=== PATIENT | female | born 2005 | race Caucasian/White ===

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

== ENCOUNTER 2023-05-14 18:09 | Emergency (ER) | payer BC, MEDICAID, SELFPAY ==
[2023-05-14 18:11] VITALS: BP 113/61; PULSE 100; RESP 18; TEMP 36.5; O2SAT 100; BMI 20.5
[2023-05-14 19:04] LABS: Add Urine Microscopic? YES; Bilirubin Urine Neg (Negative); Blood Urine Neg (Negative); Glucose Urine UA Norm (Normal); Ketones Urine Negative (Negative); Leukocyte Esterase Urine Trace (Negative); Nitrate Urine Negative (Negative); Protein Urine Neg (Negative); Specific Gravity, Urine 1.015 (1.005-1.030); Urine Appearance Clear (CLEAR); Urine Color Yellow (Yellow); Urobilinogen Urine Norm (Negative); pH Urine 6 (5-7)
[2023-05-14 19:07] LABS: Bacteria Urine TRACE /hpf; Mucus Urine TRACE /hpf; RBC Urine 0-4 /hpf (0-2)
[2023-05-14 19:08] LABS: Add Urine Culture? No
--- NOTE | 2023-05-14 20:25 | CTR_ITS ---
PROCEDURE INFORMATION: Exam: CT Abdomen And Pelvis With Contrast Exam date and time: 05/14/2023 9:15 PM Age: 17 years old Clinical indication: Abdominal pain; Localized; Right; Prior surgery; Surgery date: 6+ months; Surgery type: Bharti; Additional info: Rlq abd pain TECHNIQUE: Imaging protocol: Computed tomography of the abdomen and pelvis with contrast. Radiation optimization: All CT scans at this facility use at least one of these dose optimization techniques: automated exposure control; mA and/or kV adjustment per patient size (includes targeted exams where dose is matched to clinical indication); or iterative reconstruction. Contrast material: OMNI 350; Contrast volume: 100 ml; Contrast route: INTRAVENOUS (IV); REPORTING DATA: Count of CT and Cardiac NM exams in prior 12 months: This patient has received 0 known CTs and 0 known cardiac nuclear medicine studies in the 12 months prior to the current study. 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 Gallbladder and bile ducts: Cholecystectomy. No ductal dilation. Pancreas: Normal. No ductal dilation. Spleen: Normal. No splenomegaly. Adrenal glands: Normal. No mass. Kidneys and ureters: 3 mm nonobstructing stone noted in the left kidney. No hydronephrosis. Stomach and bowel: Unremarkable. No obstruction. No mucosal thickening. Appendix: No evidence of appendicitis. Intraperitoneal space: Unremarkable. No free air. No significant fluid collection. Vasculature: Unremarkable. No abdominal aortic aneurysm. Lymph nodes: Unremarkable. No enlarged lymph nodes. Urinary bladder: Unremarkable as visualized. Reproductive: Unremarkable as visualized. Bones/joints: No acute fracture. Soft tissues: Unremarkable. CT/CT abdomen pelvis w con* [id number] IMPRESSION: 1. No acute findings. 2. 3 mm nonobstructing stone noted in the left kidney.
[2023-05-14 20:26] LABS: Basophils # 0.1 10^3/uL (0.0-0.1); Basophils % 0.6 %; Eosinophils # 0.4 10^3/uL (0.0-0.8); Eosinophils % 4.5 %; Hematocrit 44.1 % (36-47); Lymphocytes # 2.9 10^3/uL (1.5-6.5); Lymphocytes % 35.8 %; Mean Corpuscular HGB Conc 32.4 g/dL (30-55); Mean Corpuscular Volume 86.5 fl (85-98); Mean Platelet Volume 10.3 fL (7.4-10.4); Monocytes # 0.6 10^3/uL (0.2-0.9); Monocytes % 6.8 %; Neutrophils # 4.28 10^3/uL (1.8-8.0); Neutrophils % 52.1 %; Nucleated Red Blood Cells % 0 %; Platelet Count 370 10^3/cmm (157-399); Red Cell Distribution Width 13.3 % (12.1-15.1); White Blood Count 8.22 10^3/uL (4.5-13.0)
--- NOTE | 2023-05-14 20:27 | ED_ITS ---
HPI - Abdominal Pain General: Chief Complaint: Abdominal Pain Stated Complaint: right abdomen pain,light headed Time Seen by Provider: 05/14/23 20:13 History of Present Illness: 17-year-old female presents emergency department complaints of right lower quadrant abdominal pain. She states that her pain started around her bellybutton yesterday and is continued to worsen. She states it did improve last night for approximately 3 to 4 hours and then started having pain again. She states today the pain is a 9 out of 10 to the right lower quadrant and hurts with any movement or coughing or sneezing. She states she does have associated nausea without vomiting. She states that touching the area makes the pain worse she has had a previous cholecystectomy and approximately 14 months ago she gave to a well healthy male . Associated Symptoms: Reports nausea Related Data: Date of Last Menstrual Period: 05/06/23 Review of Systems General: Reports: 10 or more systems reviewed and unremarkable except in HPI and below GI: Reports: abdominal pain and nausea PFS ED PFSH: Medical History Anxiety COVID Mastitis No pertinent past medical history neghx: htn,dm,thyroid,dvt/pe PCP: Dr. Morillo Normal Surgical History Hx laparoscopic cholecystectomy (~2020) Hx of tonsillectomy (~2006) Family History Family/Other Breast cancer Maternal great grandmother--dx age unknown Colon cancer Paternal Great Uncle--dx age 60's Mother Heart disease Grandmother Heart disease Maternal Grandfather Hypertension Paternal Denies family history of Ovarian cancer Diabetes Hypercholesteremia Uterine cancer Thyroid disease Stroke Social History Smoking and tobacco status: never smoked Alcohol intake: never Substance/Drug Use: never Female Reproductive History: Date of last menstrual period: 05/06/23 Physical Exam Const: COMMON NORMALS: patient oriented x3 GENERAL APPEARANCE: cooperative and ill appearing HENMT: COMMON NORMALS: normocephalic, atraumatic, Normal external nose present and moist oral mucous membranes HEAD & SCALP: normocephalic and atraumatic NOSE: Normal external nose present Eye: COMMON NORMALS: Equal, round and reactive pupils present and EOMs intact bilaterally PUPIL: Yes Equal, round and reactive pupils present Neck/C-Spine: COMMON NORMALS: full ROM, no lymphadenopathy and supple Chest: COMMONS NORMALS: normal inspection of the chest and normal palpation of entire chest wall Resp: COMMON NORMALS: normal respiratory effort and clear to auscultation bilaterally AUSCULTATION: clear to auscultation bilaterally Cardio: COMMON NORMALS: regular rate, regular rhythm, S1 normal heart sound present, S2 normal heart sound present and Peripheral pulses 2+ throughout RATE: regular rate RHYTHM: regular rhythm HEART SOUNDS: S1 normal heart sound present and S2 normal heart sound present PERIPHERAL PULSES: Peripheral pulses 2+ throughout GI: COMMON NORMALS: Soft to palpation INSPECTION: Yes normal to inspection and Yes other (Postop laparoscopic surgical incisions noted to the right upper quadrant mo) AUSCULTATION: Yes normoactive bowel sounds PALPATION: Yes Soft to palpation, Yes Tenderness to palpation present (GI) Details: RLQ and Yes Guarding due to palpation present (GI) in the RLQ Back/Pelvis: COMMON NORMALS: thoracic and lumbar spine normal to inspection, no thoracic nor lumbar tenderness and thoraco-lumbar ROM normal Extremity: COMMON NORMALS: normal to inspection, full ROM and capillary refill normal Neuro: COMMON NORMALS: patient oriented x3 and moves all extremities Psych: COMMON NORMALS: mental status grossly normal, Normal thought process present and cooperative THOUGHT PROCESS: Normal thought process present Skin: COMMON NORMALS: no rashes or lesions noted GENERAL SKIN EXAM: no rashes or lesions noted Course Vital Signs: Vital signs: Vital Signs Temperature 97.7 F 05/14/23 18:11 Pulse Rate 100 05/14/23 18:11 Respiratory Rate 18 05/14/23 18:11 Blood Pressure 113/61 05/14/23 18:11 Pulse Oximetry 100 05/14/23 18:11 Oxygen Delivery Me thod Room Air 05/14/23 18:11 MDM - Abdominal Pain Medical Decision Making Physical exam completed and documented, I will order laboratory evaluation as well as a CT scan of her abdomen pelvis with contrast she states she is allergic to shrimp but has not had any difficulties with CT scans with IV contrast in the past. Differential Diagnosis Likely abdominal pain, acute appendicitis and constipation Lab Data 05/14/23 20:06 05/14/23 20:06 Labs/Radiology: Radiology Impressions Abdomen/Pelvis CT 05/14/23 20:25 IMPRESSION: 1. No acute findings. 2. 3 mm nonobstructing stone noted in the left kidney. Laboratory Results WBC 8.22 10^3/uL (4.5-13.0) 05/14/23 20:06 RBC 5.10 10^6/uL (3.85-5.65) 05/14/23 20:06 Hgb 14.30 g/dL (12.4-14.8) 05/14/23 20:06 Hct 44.1 % (36-47) 05/14/23 20:06 MCV 86.5 fl (85-98) 05/14/23 20:06 MCH 28.0 pg (27-33) 05/14/23 20:06 MCHC 32.4 g/dL (30-55) 05/14/23 20:06 RDW 13.3 % (12.1-15.1) 05/14/23 20:06 Plt Count 370 10^3/cmm (157-399) 05/14/23 20:06 MPV 10.3 fL (7.4-10.4) 05/14/23 20:06 Neut % (Auto) 52.1 % 05/14/23 20:06 Lymph % (Auto) 35.8 % 05/14/23 20:06 [place] % (Auto) 6.8 % 05/14/23 20:06 Eos % (Auto) 4.5 % 05/14/23 20:06 Baso % (Auto) 0.6 % 05/14/23 20:06 Neut # (Auto) 4.28 10^3/uL (1.8-8.0) 05/14/23 20:06 Lymph # (Auto) 2.9 10^3/uL (1.5-6.5) 05/14/23 20:06 [place] # (Auto) 0.6 10^3/uL (0.2-0.9) 05/14/23 20:06 Eos # (Auto) 0.4 10^3/uL (0.0-0.8) 05/14/23 20:06 Baso # (Auto) 0.1 10^3/uL (0.0-0.1) 05/14/23 20:06 Nucleated RBC % (auto) 0 % 05/14/23 20:06 Nucleated RBCs # 0.0 /100WBC 05/14/23 20:06 PT 16.00 SECONDS (12.1-14.9) H 05/14/23 20:32 INR 1.24 (0.8-1.2) H 05/14/23 20:32 APTT 32.9 SECONDS (23.9-36.7) 05/14/23 20:32 Sodium 142 mmol/L (136-145) 05/14/23 20:06 Potassium 3.6 mmol/L (3.5-5.1) 05/14/23 20:06 Chloride 105 mmol/L (98-107) 05/14/23 20:06 Carbon Dioxide 25 mmol/L (22-29) 05/14/23 20:06 Anion Gap 15.6 (5-19) 05/14/23 20:06 BUN 16 mg/dL (6-20) 05/14/23 20:06 Creatinine 0.5 mg/dL (0.5-0.9) 05/14/23 20:06 GFR Calculation 158.9 mL/min (90-130) H 05/14/23 20:06 Glucose 87 mg/dL (65-115) 05/14/23 20:06 Calculated Osmolality 295 mOsm/kg (285-295) 05/14/23 20:06 Lactic Acid 1.1 mmol/L (0.5-2.2) 05/14/23 20:32 Calcium 9.7 mg/dL (8.5-10.5) 05/14/23 20:06 Total Bilirubin 0.4 mg/dL (0.15-1.2) 05/14/23 20:06 AST 15 U/L (0-32) 05/14/23 20:06 ALT 12 U/L (0-33) 05/14/23 20:06 Alkaline Phosphatase 85 U/L (35-105) 05/14/23 20:06 Total Protein 8.3 g/dL (6.6-8.7) 05/14/23 20:06 Albumin 4.9 g/dL (3.5-5.2) 05/14/23 20:06 Globulin 3.4 g/dL (1.3-4.6) 05/14/23 20:06 Lipase 64 U/L (13-60) H 05/14/23 20:06 HCG, Qual Negative (Negative) 05/14/23 20:06 Urine Color Yellow (Yellow) 05/14/23 18:32 Urine Appearance Clear (CLEAR) 05/14/23 18:32 Urine pH 6 (5-7) 05/14/23 18:32 Ur Specific [place] 1.015 (1.005-1.030) 05/14/23 18:32 Urine Protein Neg (Negative) 05/14/23 18:32 Urine Glucose (UA) Norm (Normal) 05/14/23 18:32 Urine Ketones Negative (Negative) 05/14/23 18:32 Urine Blood Neg (Negative) 05/14/23 18:32 Urine Nitrate Negative (Negative) 05/14/23 18:32 Urine Bilirubin Neg (Negative) 05/14/23 18:32 Urine Urobilinogen Norm mg/dL (Negative) 05/14/23 18:32 Ur Leukocyte Esterase Trace (Negative) H 05/14/23 18:32 Urine RBC 0-4 /hpf (0-2) H 05/14/23 18:32 Urine WBC 5-10 /hpf (0-5) H 05/14/23 18:32 Ur Squamous Epith Cells 5-10 /hpf (0-5) H 05/14/23 18:32 Amorphous Sediment Not Reportable 05/14/23 18:32 Urine Bacteria Trace /hpf (NONE) 05/14/23 18:32 Urine Mucus Trace /hpf 05/14/23 18:32 XR interpretation done by ED provider, pending radiology final review ED provider radiology interpretation(s): IMPRESSION: 1. ? No acute findings. 2. ? 3 mm nonobstructing stone noted in the left kidney. ? Discharge Plan Discharge Patient Disposition: Home Clinical Impression: Abdominal pain, Renal calculi Condition: Stable Prescriptions: New dicyclomine 20 mg tablet 20 mg PO BID Qty: 14 0RF No Action multivitamin Tablet 1 tab PO DAILY prednisone 20 mg tablet 60 mg PO DAILY 5 Days Qty: 15 0RF diclofenac sodium 50 mg tablet,delayed release (DR/EC) 50 mg PO BID Qty: 20 0RF Rx Instructions: for pain and inflammation cyclobenzaprine 5 mg tablet 5 mg PO .HS Qty: 10 0RF Discharge Orders: Discharge ED (Routine); Ordered 05/14/23 Ordered By: Rolf Cotton Referrals: Eric Morillo [Primary Care Provider] - Discharge Diet: Advance as tolerated Discharge Activity: Resume usual activity Patient Instructions: Abdominal Pain (ED) Coding Level of Care Code ED Senior Manager Asset Protection for eRny Corbin
[2023-05-14 20:44] LABS: Alanine Aminotransferase 12 U/L (0-33); Albumin Level 4.9 g/dL (3.5-5.2); Alkaline Phosphatase 85 U/L (35-105); Anion Gap 15.6 (5-19); Aspartate Amino Transferase 15 U/L (0-32); Blood Urea Nitrogen 16 mg/dL (6-20); Calcium 9.7 mg/dL (8.5-10.5); Carbon Dioxide 25 mmol/L (22-29); Chloride 105 mmol/L (98-107); Globulin 3.4 g/dL (1.3-4.6); Glomerular Filtration Rate 158.9 mL/min (90-130); Glucose 87 mg/dL (65-115); Lipase 64 U/L (13-60); Osmolality Calculated 295 mOsm/kg (285-295); Potassium 3.6 mmol/L (3.5-5.1); Sodium 142 mmol/L (136-145); Total Bilirubin 0.4 mg/dL (0.15-1.2); Total Protein 8.3 g/dL (6.6-8.7)
[2023-05-14 20:48] LABS: HCG, Serum Qual Negative (Negative)
[2023-05-14 21:22] LABS: INR 1.24 (0.8-1.2)
[2023-05-14 21:23] LABS: Partial Thromboplastin Time 32.9 SECONDS (23.9-36.7)
[2023-05-14] MEDS: iohexol 350 mg/mL 500 mL Btl (per mL) IV (21:26)
[2023-05-14] MEDS: ondansetron 2 mg/ML SDV 2 mL 4 MG IVP (21:29)
[2023-05-14 21:33] LABS: Lactic Sepsis W/Reflex 1.1 mmol/L (0.5-2.2)
== END 2023-05-14 22:41 | disposition home or self-care (01) ==
PROVIDERS: Physician Assistant; Emergency Provider Internal Medicine; PCP Family Medicine
DX: N20.0 Calculus of kidney (principal)
CPT/HCPCS: 36415; 74177; 80053; 81001; 83605; 83690; 84703; 85025; 85610; 85730; 96374; 99285; J2405; Q9967

== ENCOUNTER → 2023-06-25 17:10 | Outpatient (BNVA) | payer BC, MEDICAID, SELFPAY | PROVIDERS: PCP Family Medicine; Visit Provider Registered Nurse Neonatal Intensive Care | DX: J02.9 Acute pharyngitis, unspecified (principal) | CPT/HCPCS: 87400; 87880 ==

== ENCOUNTER 2023-07-04 17:49 | Emergency (ER) | payer BC, MEDICAID, SELFPAY ==
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
[2023-07-04 17:56] VITALS: BP 123/65; PULSE 73; RESP 17; TEMP 36.8; O2SAT 100; BMI 20.9
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
[2023-07-04 17:59] VITALS: PULSE 82; RESP 18; O2SAT 99
[2023-07-04 18:08] VITALS: RESP 18; O2SAT 100
[2023-07-04] MEDS: morphine 4 mg/mL SDV 1 mL IVP (18:08)
[2023-07-04] MEDS: ondansetron 2 mg/ML SDV 2 mL 4 MG IVP (18:08)
[2023-07-04] MEDS: ketorolac 30 mg/mL INJ IVP (20:23)
== END 2023-07-04 20:57 | disposition home or self-care (01) ==
PROVIDERS: Emergency Provider Emergency Medicine; PCP Family Medicine
DX: R51.9 Headache, unspecified (principal); S09.8XXA Other specified injuries of head, initial encounter; V89.2XXA Person injured in unspecified motor-vehicle accident, traffic, initial encounter
CPT/HCPCS: 70450; 72125; 96374; 96375; 99285; J1885; J2270; J2405

== ENCOUNTER 2023-08-06 16:51 | Emergency (ER) | payer BC, MEDICAID, SELFPAY ==
[2023-08-06 16:55] VITALS: BP 113/76; PULSE 106; RESP 16; TEMP 36.7; O2SAT 99; BMI 20.1
--- NOTE | 2023-08-06 17:12 | ED_ITS ---
Documented by User: Jer Ashley DO 08/07/23 06:01 HPI - Abdominal Pain 2 General: Chief Complaint: Abdominal Pain Stated Complaint: N/V/D, abd pain Time Seen by Provider: 08/06/23 17:05 Source: patient Mode of arrival: ambulatory History of Present Illness: 17-year-old female who [facility] complaining of right lower quadrant abdominal pain and some blood-tinged vaginal discharge. Denies dysuria urgency or frequency. Patient did a test at home that was negative. No vomiting or diarrhea. No dysuria urgency or frequency. No vomiting or diarrhea. MD elicited complaint: abdominal pain Quality: cramping Exacerbating factors: nothing Relieving factors: nothing Associated Symptoms: Denies anorexia, belching, bloating, change in bowel habits, change in stool character, chills, coffee ground emesis, constipation, GI cramping, diarrhea, dyspepsia, dysuria, excessive flatus, fever(s), heartburn, hematochezia, hematuria, hematemesis, fecal incontinence, loose stools, melena, nausea, poor appetite, syncope and vomiting Related Data: Date of Last Menstrual Period: 07/23/23 Review of Systems 2 Const: Denies: fever(s) or chills Card: Denies: chest pain or syncope Resp: Denies: dyspnea GI: Denies: abdominal pain, nausea, vomiting, hematemesis, coffee ground emesis, heartburn, diarrhea, constipation, bloating, GI cramping, belching, excessive flatus, fecal incontinence, change in bowel habits, change in stool character, hematochezia or melena : Denies: dysuria, urinary frequency, urinary urgency or hematuria Musc: Denies: neck pain or back pain Skin/Breast: Denies: rash PFSH ED 2 PFSH: Medical History Mastitis Normal COVID No pertinent past medical history neghx: htn,dm,thyroid,dvt/pe PCP: Dr. Ilia Joshi Surgical History Hx laparoscopic cholecystectomy (~2020) Hx of tonsillectomy (~2006) Family History Family/Other Breast cancer Maternal great grandmother--dx age unknown Colon cancer Paternal Great Uncle--dx age 60's Mother Heart disease Grandmother Heart disease Maternal Grandfather Hypertension Paternal Denies family history of Ovarian cancer Diabetes Hypercholesteremia Uterine cancer Thyroid disease Stroke Social History Smoking and tobacco/nicotine status: never used tobacco/nicotine Alcohol intake: never Substance/Drug Use: never Female Reproductive History: Date of last menstrual period: 07/23/23 Physical Exam 2 Const: GENERAL APPEARANCE: cooperative and comfortable O RIENTATION/CONSCIOUSNESS: Yes awake, Yes oriented to person, Yes oriented to place and Yes oriented to time HENMT: COMMON NORMALS: normocephalic, atraumatic and hearing grossly normal bilaterally HEAD & SCALP: normocephalic and atraumatic Resp: COMMON NORMALS: normal respiratory effort, No retractions, No use of accessory muscles and clear to auscultation bilaterally AUSCULTATION: clear to auscultation bilaterally Cardio: COMMON NORMALS: regular rate, regular rhythm and No murmurs present (Cardio) RATE: regular rate RHYTHM: regular rhythm GI: COMMON NORMALS: Soft to palpation and No hepatosplenomegaly present A USCULTATION: Yes normoactive bowel sounds PALPATION: Yes Soft to palpation, No Tenderness to palpation present (GI), No Guarding due to palpation present (GI) and Yes No hepatosplenomegaly present Extremity: COMMON NORMALS: normal to inspection, capillary refill normal, no clubbing, cyanosis or edema, no calf tenderness and no pedal edema Neuro: SENSORIUM/ORIENTATION: Yes oriented to person, Yes oriented to place and Yes oriented to time Skin: COMMON NORMALS: no rashes or lesions noted GENERAL SKIN EXAM: no rashes or lesions noted Course 2 Vital Signs: Vital signs: Vital Signs Temperature 98.0 F 08/06/23 20:19 Pulse Rate 101 H 08/06/23 20:19 Respiratory Rate 16 08/06/23 20:19 Blood Pressure 97/71 08/06/23 20:19 Pulse Oximetry 100 08/06/23 20:19 Oxygen Delivery Me thod Room Air 08/06/23 18:00 MDM - Abdominal Pain Medical Decision Making Care signed out to Dr. Coughlin at change of shift. See final notes for diagnosis and disposition. Medical Records I reviewed the patient's medical records. Lab Data I reviewed the patient's lab results. 08/06/23 17:17 08/06/23 17:17 Labs/Radiology: Radiology Impressions Pelvis Ultrasound 08/06/23 18:04 IMPRESSION: 1. Retroflexed uterus with stable intramural fibroid measuring 2.5 cm in greatest dimension. 2. Remainder of the pelvic ultrasound is unremarkable for age. Laboratory Results WBC 11.59 10^3/uL (4.5-13.0) 08/06/23 17:17 RBC 5.54 10^6/uL (3.85-5.65) 08/06/23 17:17 Hgb 15.60 g/dL (12.4-14.8) H 08/06/23 17:17 Hct 48.4 % (36-47) H 08/06/23 17:17 MCV 87.4 fl (85-98) 08/06/23 17:17 MCH 28.2 pg (27-33) 08/06/23 17:17 MCHC 32.2 g/dL (30-55) 08/06/23 17:17 RDW 13.4 % (12.1-15.1) 08/06/23 17:17 Plt Count 321 10^3/cmm (157-399) 08/06/23 17:17 MPV 10.0 fL (7.4-10.4) 08/06/23 17:17 Neut % (Auto) 79.3 % 08/06/23 17:17 Lymph % (Auto) 14.0 % 08/06/23 17:17 [place] % (Auto) 4.7 % 08/06/23 17:17 Eos % (Auto) 1.4 % 08/06/23 17:17 Baso % (Auto) 0.3 % 08/06/23 17:17 Neut # (Auto) 9.20 10^3/uL (1.8-8.0) H 08/06/23 17:17 Lymph # (Auto) 1.6 10^3/uL (1.5-6.5) 08/06/23 17:17 [place] # (Auto) 0.5 10^3/uL (0.2-0.9) 08/06/23 17:17 Eos # (Auto) 0.2 10^3/uL (0.0-0.8) 08/06/23 17:17 Baso # (Auto) 0.0 10^3/uL (0.0-0.1) 08/06/23 17:17 Nucleated RBC % (auto) 0 % 08/06/23 17:17 Nucleated RBCs # 0.0 /100WBC 08/06/23 17:17 Sodium 139 mmol/L (136-145) 08/06/23 17:17 Potassium 4.1 mmol/L (3.5-5.1) 08/06/23 17:17 Chloride 103 mmol/L (98-107) 08/06/23 17:17 Carbon Dioxide 23 mmol/L (22-29) 08/06/23 17:17 Anion Gap 17.1 (5-19) 08/06/23 17:17 BUN 12 mg/dL (6-20) 08/06/23 17:17 Creatinine 0.4 mg/dL (0.5-0.9) L 08/06/23 17:17 GFR Calculation 205.6 mL/min (90-130) H 08/06/23 17:17 Glucose 92 mg/dL (65-115) 08/06/23 17:17 Calculated Osmolality 287 mOsm/kg (285-295) 08/06/23 17:17 Calcium 9.9 mg/dL (8.5-10.5) 08/06/23 17:17 Total Bilirubin 0.8 mg/dL (0.15-1.2) 08/06/23 17:17 AST 15 U/L (0-32) 08/06/23 17:17 ALT 12 U/L (0-33) 08/06/23 17:17 Alkaline Phosphatase 99 U/L (35-105) 08/06/23 17:17 Total Protein 8.9 g/dL (6.6-8.7) H 08/06/23 17:17 Albumin 5.1 g/dL (3.5-5.2) 08/06/23 17:17 Globulin 3.8 g/dL (1.3-4.6) 08/06/23 17:17 Lipase 48 U/L (13-60) 08/06/23 17:17 HCG, Qual Negative (Negative) 08/06/23 17:17 Urine Color Yellow (Yellow) 08/06/23 17:50 Urine Appearance Clear (CLEAR) 08/06/23 17:50 Urine pH 6 (5-7) 08/06/23 17:50 Ur Specific [place] 1.020 (1.005-1.030) 08/06/23 17:50 Urine Protein Neg (Negative) 08/06/23 17:50 Urine Glucose (UA) Norm (Normal) 08/06/23 17:50 Urine Ketones Negative (Negative) 08/06/23 17:50 Urine Blood Neg (Negative) 08/06/23 17:50 Urine Nitrate Negative (Negative) 08/06/23 17:50 Urine Bilirubin Neg (Negative) 08/06/23 17:50 Urine Urobilinogen Norm mg/dL (Negative) 08/06/23 17:50 Ur Leukocyte Esterase Negative (Negative) 08/06/23 17:50 Discharge Plan Discharge Patient Disposition: Home Clinical Impression: Abdominal pain Qualifiers: Abdominal location: lower abdomen, unspecified Qualified Code(s): R10.30 - Lower abdominal pain, unspecified Fibroid uterus Qualifiers: Uterine leiomyoma location: intramural Qualified Code(s): D25.1 - Intramural leiomyoma of uterus Condition: Stable Prescriptions: New tramadol 50 mg tablet 50 mg PO Q8H PRN (Reason: pain) Qty: 10 0RF ondansetron 4 mg tablet,disintegrating 4 mg PO Q6H PRN (Reason: nausea and vomiting) Qty: 20 0RF No Action multivitamin Tablet 1 tab PO DAILY diclofenac sodium 50 mg tablet,delayed release (DR/EC) 50 mg PO BID Qty: 20 0RF Rx Instructions: for pain and inflammation cyclobenzaprine 5 mg tablet 5 mg PO .HS Qty: 10 0RF Naprosyn 500 mg tablet 500 mg PO BID PRN (Reason: pain) Qty: 20 0RF dicyclomine 20 mg tablet 20 mg PO BID Qty: 14 0RF Discharge Orders: Discharge ED (Routine); Ordered 08/06/23 Ordered By: Colette Coughlin Referrals: Aubrey Ronquillo MD [Physician] - Eric Morillo [Primary Care Provider] - Discharge Diet: As Directed Discharge Activity: Resume usual activity Patient Instructions: Abdominal Pain (ED), Opioid Safety, Pain Management Coding Level of Care Code ED Content Publisher for Chg Fwd Documented by User: Colette Coughlin MD 08/06/23 20:05 HPI - Abdominal Pain 2 General: Chief Complaint: Abdominal Pain Stated Complaint: N/V/D, abd pain Time Seen by Provider: 08/06/23 17:05 PFSH ED 2 PFSH: Medical History Mastitis Normal COVID No pertinent past medical history neghx: htn,dm,thyroid,dvt/pe PCP: Dr. Ilia Joshi Surgical History Hx laparoscopic cholecystectomy (~2020) Hx of tonsillectomy (~2006) Family History Family/Other Breast cancer Maternal great grandmother--dx age unknown Colon cancer Paternal Great Uncle--dx age 60's Mother Heart disease Grandmother Heart disease Maternal Grandfather Hypertension Paternal Denies family history of Ovarian cancer Diabetes Hypercholesteremia Uterine cancer Thyroid disease Stroke Social History Smoking and tobacco/nicotine status: never used tobacco/nicotine Alcohol intake: never Substance/Drug Use: never Course 2 Vital Signs: Vital signs: Vital Signs Temperature 98.0 F 08/06/23 20:19 Pulse Rate 101 H 08/06/23 20:19 Respiratory Rate 16 08/06/23 20:19 Blood Pressure 97/71 08/06/23 20:19 Pulse Oximetry 100 08/06/23 20:19 Oxygen Delivery Me thod Room Air 08/06/23 18:00 MDM - Abdominal Pain Differential Diagnosis Likely abdominal pain, acute appendicitis, calculus of kidney, constipation, diverticulitis, endometriosis, gastroenteritis, pancreatitis and small bowel obstruction Lab Data 08/06/23 17:17 08/06/23 17:17 Labs/Radiology: Radiology Impressions Pelvis Ultrasound 08/06/23 18:04 IMPRESSION: 1. Retroflexed uterus with stable intramural fibroid measuring 2.5 cm in greatest dimension. 2. Remainder of the pelvic ultrasound is unremarkable for age. Laboratory Results WBC 11.59 10^3/uL (4.5-13.0) 08/06/23 17:17 RBC 5.54 10^6/uL (3.85-5.65) 08/06/23 17:17 Hgb 15.60 g/dL (12.4-14.8) H 08/06/23 17:17 Hct 48.4 % (36-47) H 08/06/23 17:17 MCV 87.4 fl (85-98) 08/06/23 17:17 MCH 28.2 pg (27-33) 08/06/23 17:17 MCHC 32.2 g/dL (30-55) 08/06/23 17:17 RDW 13.4 % (12.1-15.1) 08/06/23 17:17 Plt Count 321 10^3/cmm (157-399) 08/06/23 17:17 MPV 10.0 fL (7.4-10.4) 08/06/23 17:17 Neut % (Auto) 79.3 % 08/06/23 17:17 Lymph % (Auto) 14.0 % 08/06/23 17:17 [place] % (Auto) 4.7 % 08/06/23 17:17 Eos % (Auto) 1.4 % 08/06/23 17:17 Baso % (Auto) 0.3 % 08/06/23 17:17 Neut # (Auto) 9.20 10^3/uL (1.8-8.0) H 08/06/23 17:17 Lymph # (Auto) 1.6 10^3/uL (1.5-6.5) 08/06/23 17:17 [place] # (Auto) 0.5 10^3/uL (0.2-0.9) 08/06/23 17:17 Eos # (Auto) 0.2 10^3/uL (0.0-0.8) 08/06/23 17:17 Baso # (Auto) 0.0 10^3/uL (0.0-0.1) 08/06/23 17:17 Nucleated RBC % (auto) 0 % 08/06/23 17:17 Nucleated RBCs # 0.0 /100WBC 08/06/23 17:17 Sodium 139 mmol/L (136-145) 08/06/23 17:17 Potassium 4.1 mmol/L (3.5-5.1) 08/06/23 17:17 Chloride 103 mmol/L (98-107) 08/06/23 17:17 Carbon Dioxide 23 mmol/L (22-29) 08/06/23 17:17 Anion Gap 17.1 (5-19) 08/06/23 17:17 BUN 12 mg/dL (6-20) 08/06/23 17:17 Creatinine 0.4 mg/dL (0.5-0.9) L 08/06/23 17:17 GFR Calculation 205.6 mL/min (90-130) H 08/06/23 17:17 Glucose 92 mg/dL (65-115) 08/06/23 17:17 Calculated Osmolality 287 mOsm/kg (285-295) 08/06/23 17:17 Calcium 9.9 mg/dL (8.5-10.5) 08/06/23 17:17 Total Bilirubin 0.8 mg/dL (0.15-1.2) 08/06/23 17:17 AST 15 U/L (0-32) 08/06/23 17:17 ALT 12 U/L (0-33) 08/06/23 17:17 Alkaline Phosphatase 99 U/L (35-105) 08/06/23 17:17 Total Protein 8.9 g/dL (6.6-8.7) H 08/06/23 17:17 Albumin 5.1 g/dL (3.5-5.2) 08/06/23 17:17 Globulin 3.8 g/dL (1.3-4.6) 08/06/23 17:17 Lipase 48 U/L (13-60) 08/06/23 17:17 HCG, Qual Negative (Negative) 08/06/23 17:17 Urine Color Yellow (Yellow) 08/06/23 17:50 Urine Appearance Clear (CLEAR) 08/06/23 17:50 Urine pH 6 (5-7) 08/06/23 17:50 Ur Specific [place] 1.020 (1.005-1.030) 08/06/23 17:50 Urine Protein Neg (Negative) 08/06/23 17:50 Urine Glucose (UA) Norm (Normal) 08/06/23 17:50 Urine Ketones Negative (Negative) 08/06/23 17:50 Urine Blood Neg (Negative) 08/06/23 17:50 Urine Nitrate Negative (Negative) 08/06/23 17:50 Urine Bilirubin Neg (Negative) 08/06/23 17:50 Urine Urobilinogen Norm mg/dL (Negative) 08/06/23 17:50 Ur Leukocyte Esterase Negative (Negative) 08/06/23 17:50 All radiology interpretation(s) finalized by discharge Discharge Plan Discharge Patient Disposition: Home Clinical Impression: Abdominal pain Qualifiers: Abdominal location: lower abdomen, unspecified Qualified Code(s): R10.30 - Lower abdominal pain, unspecified Fibroid uterus Qualifiers: Uterine leiomyoma location: intramural Qualified Code(s): D25.1 - Intramural leiomyoma of uterus Condition: Stable Prescriptions: New tramadol 50 mg tablet 50 mg PO Q8H PRN (Reason: pain) Qty: 10 0RF ondansetron 4 mg tablet,disintegrating 4 mg PO Q6H PRN (Reason: nausea and vomiting) Qty: 20 0RF No Action multivitamin Tablet 1 tab PO DAILY diclofenac sodium 50 mg tablet,delayed release (DR/EC) 50 mg PO BID Qty: 20 0RF Rx Instructions: for pain and inflammation cyclobenzaprine 5 mg tablet 5 mg PO .HS Qty: 10 0RF Naprosyn 500 mg tablet 500 mg PO BID PRN (Reason: pain) Qty: 20 0RF dicyclomine 20 mg tablet 20 mg PO BID Qty: 14 0RF Discharge Orders: Discharge ED (Routine); Ordered 08/06/23 Ordered By: Colette Coughlin Referrals: Aubrey Ronquillo MD [Physician] - Eric Morillo [Primary Care Provider] - Discharge Diet: As Directed Discharge Activity: Resume usual activity Patient Instructions: Abdominal Pain (ED), Opioid Safety, Pain Management Coding Level of Care Code ED Content Publisher for Reny Corbin
[2023-08-06 17:27] VITALS: BP 119/77; PULSE 89; O2SAT 100
[2023-08-06 17:41] LABS: Basophils % 0.3 %; Eosinophils # 0.2 10^3/uL (0.0-0.8); Eosinophils % 1.4 %; Hematocrit 48.4 % (36-47); Lymphocytes # 1.6 10^3/uL (1.5-6.5); Mean Corpuscular HGB Conc 32.2 g/dL (30-55); Mean Corpuscular Hemoglobin 28.2 pg (27-33); Mean Corpuscular Volume 87.4 fl (85-98); Monocytes # 0.5 10^3/uL (0.2-0.9); Monocytes % 4.7 %; Neutrophils % 79.3 %; Nucleated Red Blood Cells % 0 %; Platelet Count 321 10^3/cmm (157-399); Red Blood Count 5.54 10^6/uL (3.85-5.65); Red Cell Distribution Width 13.4 % (12.1-15.1); White Blood Count 11.59 10^3/uL (4.5-13.0)
[2023-08-06] MEDS: ondansetron 2 mg/ML SDV 2 mL 4 MG IVP (17:49)
[2023-08-06] MEDS: sodium chloride 0.9% 1,000 ML 999 ML IV (17:50)
[2023-08-06 17:54] LABS: HCG, Serum Qual Negative (Negative)
[2023-08-06 17:55] LABS: Alanine Aminotransferase 12 U/L (0-33); Albumin Level 5.1 g/dL (3.5-5.2); Alkaline Phosphatase 99 U/L (35-105); Anion Gap 17.1 (5-19); Aspartate Amino Transferase 15 U/L (0-32); Blood Urea Nitrogen 12 mg/dL (6-20); Calcium 9.9 mg/dL (8.5-10.5); Carbon Dioxide 23 mmol/L (22-29); Chloride 103 mmol/L (98-107); Globulin 3.8 g/dL (1.3-4.6); Glomerular Filtration Rate 205.6 mL/min (90-130); Glucose 92 mg/dL (65-115); Lipase 48 U/L (13-60); Osmolality Calculated 287 mOsm/kg (285-295); Potassium 4.1 mmol/L (3.5-5.1); Sodium 139 mmol/L (136-145); Total Bilirubin 0.8 mg/dL (0.15-1.2); Total Protein 8.9 g/dL (6.6-8.7)
[2023-08-06 18:00] VITALS: BP 97/71; PULSE 101; O2SAT 100
--- NOTE | 2023-08-06 18:04 | USR_ITS ---
PROCEDURE INFORMATION: Exam: US Nonobstetric Pelvis; Complete Exam date and time: 08/06/2023 6:26 PM Age: 17 years old Clinical indication: Patient HX: Chronic intermittent right pelvic pain. Patient was seen here 05/14/23 for similar symptoms, CT abd = no acute findings. ; Additional info: Right-sided pelvic pain LABS AND CLINICAL REPORTS: Serum Choriogonadotropin (HCG): 0 mIU/mL Last menstrual period start date: 07/26/2023 TECHNIQUE: Imaging protocol: Transabdominal pelvic nonobstetric ultrasound. Complete exam. Real time ultrasound with image documentation. COMPARISON: US pelvic complete* [id number] 11/21/2019 2:02 PM FINDINGS: Uterus: Uterus measures 9.5 cm x 3.8 cm x 2.9 cm. Uterus is retroflexed and unremarkable in overall size and, contour measuring 9.4 x 2.9 x 3.8 cm. 2.5 x 1.6 cm heterogeneous echogenic mass within the uterine fundus likely representing an intramural fibroid, unchanged. Endometrial lining demonstrates a trilaminar appearance and not thickened measuring 6 mm in maximum thickness. Cervix: Cervix is unremarkable. Right ovary/adnexa: Right ovary measures 2.8 cm x 3.1 cm x 2.2 cm. Right ovarian volume is 9.8 mL. 1 cm ovarian follicle. No adnexal mass. Normal Doppler flow Left ovary/adnexa: Left ovary measures 3.2 cm x 1.1 cm x 3 cm. Left ovarian volume is 5.8 mL. No adnexal mass. Normal Doppler flow Intraperitoneal space: No intraperitoneal fluid. Urinary bladder: Not visualized. US/US pelvic complete* [id number] IMPRESSION: 1. Retroflexed uterus with stable intramural fibroid measuring 2.5 cm in greatest dimension. 2. Remainder of the pelvic ultrasound is unremarkable for age.
[2023-08-06 18:05] LABS: Add Urine Microscopic? NO; Charge for UA Resulting for Rev
[2023-08-06 18:08] LABS: Bilirubin Urine Neg (Negative); Blood Urine Neg (Negative); Glucose Urine UA Norm (Normal); Ketones Urine Negative (Negative); Leukocyte Esterase Urine Negative (Negative); Nitrate Urine Negative (Negative); Protein Urine Neg (Negative); Urine Appearance Clear (CLEAR); Urine Color Yellow (Yellow); Urobilinogen Urine Norm (Negative); pH Urine 6 (5-7)
[2023-08-06 20:19] VITALS: BP 97/71; PULSE 101; RESP 16; TEMP 36.7; O2SAT 100
== END 2023-08-06 20:29 | disposition home or self-care (01) ==
PROVIDERS: Emergency Medicine; Emergency Provider Family Medicine; PCP Family Medicine
DX: D25.1 Intramural leiomyoma of uterus (principal); R10.31 Right lower quadrant pain
CPT/HCPCS: 36415; 76856; 80053; 81003; 83690; 84703; 85025; 96361; 96374; 99284; J2405; J7030

== ENCOUNTER → 2023-08-13 15:52 | Outpatient (BNVA) | payer BC, MEDICAID, SELFPAY | PROVIDERS: PCP Family Medicine; Referring Provider Family Medicine; Visit Provider Obstetrics & Gynecology | DX: Z91.89 Other specified personal risk factors, not elsewhere classified (principal); R10.9 Unspecified abdominal pain | CPT/HCPCS: 81000; 81025 ==

== ENCOUNTER 2024-06-27 20:16 | Emergency (ER) | payer MEDICAID, SELFPAY ==
[2024-06-27 20:23] VITALS: BP 122/66; PULSE 100; RESP 18; TEMP 36.8; O2SAT 100
[2024-06-27] MEDS: sodium chloride 0.9% 1,000 ML 999 ML IV (20:56)
[2024-06-27 21:02] LABS: Basophils # 0.1 10^3/uL (0.0-0.1); Basophils % 0.4 %; Eosinophils # 0.4 10^3/uL (0.0-0.8); Eosinophils % 3.4 %; Hematocrit 38.8 % (36-47); Lymphocytes # 2.7 10^3/uL (1.5-6.5); Lymphocytes % 23.5 %; Mean Corpuscular Hemoglobin 28.2 pg (27-33); Mean Corpuscular Volume 88.4 fl (85-98); Mean Platelet Volume 10.3 fL (7.4-10.4); Monocytes # 0.7 10^3/uL (0.2-0.9); Monocytes % 5.7 %; Neutrophils # 7.54 10^3/uL (1.8-8.0); Neutrophils % 66.6 %; Nucleated Red Blood Cells % 0 %; Platelet Count 294 10^3/cmm (157-399); Red Blood Count 4.39 10^6/uL (3.85-5.65); Red Cell Distribution Width 13.8 % (12.1-15.1); White Blood Count 11.32 10^3/uL (4.5-13.0)
[2024-06-27 21:02] LABS: Bilirubin Urine Negative (Negative); Blood Urine Negative (Negative); Glucose Urine UA Negative (Normal); Ketones Urine Negative (Negative); Leukocyte Esterase Urine 1+ (Negative); Nitrate Urine Negative (Negative); Protein Urine Negative (Negative); Specific Gravity, Urine 1.006 (1.005-1.030); Urine Appearance Clear (CLEAR); Urine Color Yellow (Yellow); Urobilinogen Urine 0.2 mg/dL (Negative)
[2024-06-27] MEDS: ondansetron 2 mg/ML SDV 2 mL 4 MG IVP ×2 (21:04→22:06)
[2024-06-27] MEDS: morphine 4 mg/mL SDV 1 mL IVP (21:04)
[2024-06-27 21:07] LABS: Add Urine Microscopic? YES; Bacteria Urine None Seen /hpf; Hyaline Casts Urine 0-4 /lpf; RBC Urine 0-2 /hpf (0-2); Squamous Epithelial Cell Urine 0-5 /hpf (0-5)
[2024-06-27 21:34] LABS: Alanine Aminotransferase 13 U/L (0-33); Albumin Level 4.2 g/dL (3.5-5.2); Alkaline Phosphatase 81 U/L (35-105); Anion Gap 13.6 (5-19); Aspartate Amino Transferase 14 U/L (0-32); Blood Urea Nitrogen 8 mg/dL (6-20); C Reactive Protein 3.4 mg/L (0.0-4.9); Calcium 9.1 mg/dL (8.5-10.5); Carbon Dioxide 23 mmol/L (22-29); Chloride 105 mmol/L (98-107); Creatinine Clr Calc Pharmacy 204.6616; Globulin 2.7 g/dL (1.3-4.6); Glomerular Filtration Rate 203.5 mL/min (90-130); Glucose 123 mg/dL (65-115); Lipase 40 U/L (13-60); Osmolality Calculated 286 mOsm/kg (285-295); Potassium 3.6 mmol/L (3.5-5.1); Sodium 138 mmol/L (136-145); Total Bilirubin 0.2 mg/dL (0.15-1.2); Total Protein 6.9 g/dL (6.6-8.7)
--- NOTE | 2024-06-27 22:13 | ED_ITS ---
HPI - Abdominal Pain 2 General: Chief Complaint: Abdominal Pain Stated Complaint: dizzy, pain in shoulder/back low abd right side Time Seen by Provider: 06/27/24 20:30 History of Present Illness: 18-year-old female who is a G2, P1 pregn ant patient in very early presents with right sided abdominal pain. She has a history of a cholecystectomy. She is nauseated. She has not vomited. No fever. She took a home test 3 days ago that was positive. No vaginal bleeding or discharge. No blood in the urine or stool. No diarrhea. Related Data Date of Last Menstrual Period: 05/23/24 Previous Rx's Medication Instructions Recorded tramadol 50 mg tablet 50 mg PO Q8H PRN pain #10 tabs 08/06/23 cefdinir 300 mg capsule 300 mg PO BID #14 caps 06/27/24 ondansetron 4 mg disintegrating 4 mg PO Q6H PRN nausea and 06/27/24 tablet vomiting #14 tabs Allergies Allergy/AdvReac Type Severity Reaction Status Date / Time amoxicillin [From Augmentin] Allergy ALGY-Anaphy Verified 06/27/24 20:28 laxis clavulanic acid Allergy ALGY-Anaphy Verified 06/27/24 20:28 [From Augmentin] laxis fentanyl Allergy ALGY-Difficulty Verified 06/27/24 20:28 Breathing kiwi Allergy ALGY-Difficulty Verified 06/27/24 20:28 Breathing metoclopramide [From Reglan] Allergy ALGY-Difficulty Verified 06/27/24 20:28 Breathing promethazine [From Phenergan] Allergy ADR-Halluci Verified 06/27/24 20:28 nating shrimp Allergy ALGY-Difficulty Verified 06/27/24 20:28 Breathing PFSH ED 2 PFSH: Medical History Mastitis Normal COVID No pertinent past medical history neghx: htn,dm,thyroid,dvt/pe PCP: Dr. Morillo Anxiety Surgical History Hx laparoscopic cholecystectomy (~2020) Hx of tonsillectomy (~2006) Family History Family/Other Breast cancer Maternal great grandmother--dx age unknown Colon cancer Paternal Great Uncle--dx age 60's Mother Heart disease Grandmother Heart disease Maternal Grandfather Hypertension Paternal Denies family history of Ovarian cancer Diabetes Hypercholesteremia Uterine cancer Thyroid disease Stroke Social History Smoking and tobacco/nicotine status: never used tobacco/nicotine Female Reproductive History: Date of last menstrual period: 05/23/24 Physical Exam 2 Const: COMMON NORMALS: no acute distress GENERAL APPEARANCE: cooperative; not ill appearing and not frail appearing HENMT: COMMON NORMALS: normocephalic, atraumatic and Normal external nose present HEAD & SCALP: normocephalic and atraumatic FACE & SINUS: normal facial exam and face symmetric NOSE: Normal external nose present Eye: COMMON NORMALS: Equal, round and reactive pupils present and EOMs intact bilaterally PUPIL: Yes Equal, round and reactive pupils present Neck/C-Spine: GENERAL: Yes trachea midline Chest: CHEST: Yes Symmetrical chest wall rise Resp: COMMON NORMALS: normal respiratory effort, No retractions, No use of accessory muscles and clear to auscultation bilaterally AUSCULTATION: clear to auscultation bilaterally Cardio: COMMON NORMALS: regular rate and regular rhythm RATE: regular rate RHYTHM: regular rhythm GI: COMMON NORMALS: Normal to inspection, nondistended, normoactive bowel sounds present and Soft to palpation PALPATION: Yes Soft to palpation and Yes Tenderness to palpation present (GI) Details: LLQ and RLQ Extremity: COMMON NORMALS: no pedal edema Neuro: JUDIT COMA SCALE: document GCS findings Judit coma scale eye opening: Spontaneous Judit coma scale verbal response: Orientated [place] coma scale motor response: Obey commands [place] coma scale total score: 15 S ENSORY EXAM: Yes extremities (intact) Psych: COMMON NORMALS: speech normal SPEECH: Yes normal speech Skin: COMMON NORMALS: no rashes or lesions noted GENERAL SKIN EXAM: no rashes or lesions noted Course 2 Vital Signs: Vital signs: Vital Signs Temperature 98.2 F 06/27/24 20:23 Pulse Rate 78 06/27/24 22:46 Respiratory Rate 18 06/27/24 22:46 Blood Pressure 118/76 06/27/24 22:46 Pulse Oximetry 98 06/27/24 22:46 Oxygen Delivery Me thod Room Air 06/27/24 20:23 MDM - Abdominal Pain Medical Decision Making 18-year-old female who is actually tender in her bilateral lower quadrants and suprapubic area. White blood cell count is 11. CRP is normal. Quantitative hCG is 437, which is the equivalent of a 4-week or so. She has a urinary tract infection. She has received IV fluids and Zofran as well as IV Rocephin. She is feeling improved. She will go home on Zofran and cefdinir. She has listed intolerances to promethazine and metoclopramide. We will set her up for an outpatient ultrasound at the 6-week cheryle or so. Will have her follow- up with women[facility] clinic. She knows to return if she worsens. Lab Data 06/27/24 20:48 06/27/24 20:48 Labs/Radiology: Laboratory Results WBC 11.32 10^3/uL (4.5-13.0) 06/27/24 20:48 RBC 4.39 10^6/uL (3.85-5.65) 06/27/24 20:48 Hgb 12.40 g/dL (12.4-14.8) 06/27/24 20:48 Hct 38.8 % (36-47) 06/27/24 20:48 MCV 88.4 fl (85-98) 06/27/24 20:48 MCH 28.2 pg (27-33) 06/27/24 20:48 MCHC 32.0 g/dL (30-55) 06/27/24 20:48 RDW 13.8 % (12.1-15.1) 06/27/24 20:48 Plt Count 294 10^3/cmm (157-399) 06/27/24 20:48 MPV 10.3 fL (7.4-10.4) 06/27/24 20:48 Neut % (Auto) 66.6 % 06/27/24 20:48 Lymph % (Auto) 23.5 % 06/27/24 20:48 [place] % (Auto) 5.7 % 06/27/24 20:48 Eos % (Auto) 3.4 % 06/27/24 20:48 Baso % (Auto) 0.4 % 06/27/24 20:48 Neut # (Auto) 7.54 10^3/uL (1.8-8.0) 06/27/24 20:48 Lymph # (Auto) 2.7 10^3/uL (1.5-6.5) 06/27/24 20:48 [place] # (Auto) 0.7 10^3/uL (0.2-0.9) 06/27/24 20:48 Eos # (Auto) 0.4 10^3/uL (0.0-0.8) 06/27/24 20:48 Baso # (Auto) 0.1 10^3/uL (0.0-0.1) 06/27/24 20:48 Nucleated RBC % (auto) 0 % 06/27/24 20:48 Nucleated RBCs # 0.0 /100WBC 06/27/24 20:48 Sodium 138 mmol/L (136-145) 06/27/24 20:48 Potassium 3.6 mmol/L (3.5-5.1) 06/27/24 20:48 Chloride 105 mmol/L (98-107) 06/27/24 20:48 Carbon Dioxide 23 mmol/L (22-29) 06/27/24 20:48 Anion Gap 13.6 (5-19) 06/27/24 20:48 BUN 8 mg/dL (6-20) 06/27/24 20:48 Creatinine 0.4 mg/dL (0.5-0.9) L 06/27/24 20:48 GFR Calculation 203.5 mL/min (90-130) H 06/27/24 20:48 Glucose 123 mg/dL (65-115) H 06/27/24 20:48 Calculated Osmolality 286 mOsm/kg (285-295) 06/27/24 20:48 Calcium 9.1 mg/dL (8.5-10.5) 06/27/24 20:48 Total Bilirubin 0.2 mg/dL (0.15-1.2) 06/27/24 20:48 AST 14 U/L (0-32) 06/27/24 20:48 ALT 13 U/L (0-33) 06/27/24 20:48 Alkaline Phosphatase 81 U/L (35-105) 06/27/24 20:48 C-Reactive Protein 3.4 mg/L (0.0-4.9) 06/27/24 20:48 Total Protein 6.9 g/dL (6.6-8.7) 06/27/24 20:48 Albumin 4.2 g/dL (3.5-5.2) 06/27/24 20:48 Globulin 2.7 g/dL (1.3-4.6) 06/27/24 20:48 Lipase 40 U/L (13-60) 06/27/24 20:48 Ser , Semi-Qnt 437.10 mIU/mL 06/27/24 20:48 Urine Color Yellow (Yellow) 06/27/24 20:20 Urine Appearance Clear (CLEAR) 06/27/24 20:20 Urine pH 7.0 (5-7) 06/27/24 20:20 Ur Specific [place] 1.006 (1.005-1.030) 06/27/24 20:20 Urine Protein Negative (Negative) 06/27/24 20:20 Urine Glucose (UA) Negative (Normal) 06/27/24 20:20 Urine Ketones Negative (Negative) 06/27/24 20:20 Urine Blood Negative (Negative) 06/27/24 20:20 Urine Nitrate Negative (Negative) 06/27/24 20:20 Urine Bilirubin Negative (Negative) 06/27/24 20:20 Urine Urobilinogen 0.2 mg/dL (Negative) 06/27/24 20:20 Ur Leukocyte Esterase 1+ (Negative) A 06/27/24 20:20 Urine RBC 0-2 /hpf (0-2) 06/27/24 20:20 Urine WBC 11-20 /hpf (0-5) H 06/27/24 20:20 Ur Squamous Epith Cells 0-5 /hpf (0-5) 06/27/24 20:20 Amorphous Sediment Not Reportable 06/27/24 20:20 Urine Bacteria None seen /hpf (NONE) 06/27/24 20:20 Hyaline Casts 0-4 /lpf H 06/27/24 20:20 No radiology studies performed this visit Discharge Plan Discharge Patient Disposition: Home Clinical Impression: UTI (urinary tract infection) in in first trimester Condition: Stable Prescriptions: New cefdinir 300 mg capsule 300 mg PO BID Qty: 14 0RF ondansetron 4 mg tablet,disintegrating 4 mg PO Q6H PRN (Reason: nausea and vomiting) Qty: 14 0RF No Action tramadol 50 mg tablet 50 mg PO Q8H PRN (Reason: pain) Qty: 10 0RF Discharge Orders: Discharge ED (Routine); Ordered 06/27/24 Ordered By: Bill Singh Other Ambulatory Orders: US OB <= 14 weeks fetus [id number] (Routine) Timeframe: 2 Weeks Facility: [facility] - Location: Radiology [facility] Ordered By: Bill Singh Referrals: Eric Morillo [Primary Care Provider] - 4-7 days Patient Instructions: Urinary Tract Infection in (ED), Opioid Safety, Pain Management Activity Restrictions/Additional Instructions: Antibiotics as directed. Plenty of clear liquids. Follow-up with your doctor this week. You needed repeat urinalysis to ensure you are clearing the infection. Return for worsening pain despite treatment, vomiting liquids or medications, fever greater than 100 despite 2-3 doses of antibiotics, other concerning symptoms. An ultrasound will be ordered for you as an outpatient in 2 weeks for confirmatory testing of and your womb. He will get a call from case management to set this up. Coding Level of Care Code ED Journalism Intern for Reny Corbin
[2024-06-27] MEDS: cefTRIAXone 1,000 mg SDV 1000 MG IVP (22:34)
[2024-06-27 22:46] VITALS: BP 118/76; PULSE 78; RESP 18; O2SAT 98
== END 2024-06-27 22:48 | disposition home or self-care (01) ==
PROVIDERS: Emergency Provider Emergency Medicine; PCP Family Medicine
DX: O23.41 Unspecified infection of urinary tract in pregnancy, first trimester (principal); N39.0 Urinary tract infection, site not specified
CPT/HCPCS: 36415; 80053; 81001; 83690; 84702; 85025; 86140; 96374; 96375; 96376; 99284; J0696; J2270; J2405; J7030

== ENCOUNTER 2024-06-29 05:48 | Emergency (ER) | payer MEDICAID, SELFPAY ==
[2024-06-29 05:49] VITALS: BP 104/58; PULSE 108; RESP 17; TEMP 37.2; O2SAT 100; BMI 21.6
--- NOTE | 2024-06-29 06:05 | ED_ITS ---
HPI - Abdominal Pain 2 General: Chief Complaint: Abdominal Pain Stated Complaint: ABD PAIN Time Seen by Provider: 06/29/24 06:04 History of Present Illness: 18-year-old [id number] seen here on 06/12 6 with right-sided abdominal pain found to have a UTI started on cefdinir. Patient reports that she has not started this after to this point. Beta-hCG at that time was 437. She was seen at [facility] and had an ultrasound done overnight transferred here. Her beta-hCG at [facility] was 572. Ultrasound done there did not identify intrauterine however beta-hCG is less than 1500 so they were concerned about an adjacent right ovarian finding and patient possibly having ectopic . No vaginal bleeding. Laboratory test from [facility] reviewed, UA was negative white count normal, hemoglobin 12 patient is Rh+. ER notes from [facility] reviewed Associated Symptoms: Reports nausea and vomiting; Denies chills, dysuria and fever(s) Related Data Date of Last Menstrual Period: 05/24/24 Previous Rx's Medication Instructions Recorded cefdinir 300 mg capsule 300 mg PO BID #14 caps 06/27/24 ondansetron 4 mg disintegrating 4 mg PO Q6H PRN nausea and 06/27/24 tablet vomiting #14 tabs hydrocodone 5 mg-acetaminophen 325 1 tab PO Q6H PRN pain #15 tabs 06/29/24 mg tablet Allergies Allergy/AdvReac Type Severity Reaction Status Date / Time amoxicillin [From Augmentin] Allergy ALGY-Anaphy Verified 06/27/24 20:28 laxis clavulanic acid Allergy ALGY-Anaphy Verified 06/27/24 20:28 [From Augmentin] laxis fentanyl Allergy ALGY-Difficulty Verified 06/27/24 20:28 Breathing kiwi Allergy ALGY-Difficulty Verified 06/27/24 20:28 Breathing metoclopramide [From Reglan] Allergy ALGY-Difficulty Verified 06/27/24 20:28 Breathing promethazine [From Phenergan] Allergy ADR-Halluci Verified 06/27/24 20:28 nating shrimp Allergy ALGY-Difficulty Verified 06/27/24 20:28 Breathing Review of Systems 2 Const: Denies: fever(s) or chills Card: Denies: chest pain Resp: Denies: dyspnea GI: Reports: abdominal pain, nausea and vomiting : Denies: dysuria, urinary frequency or urinary urgency Musc: Denies: neck pain or back pain Skin/Breast: Denies: rash PFSH ED 2 PFSH: Medical History Mastitis Normal COVID No pertinent past medical history neghx: htn,dm,thyroid,dvt/pe PCP: Dr. Ilia Joshi Surgical History Hx laparoscopic cholecystectomy (~2020) Hx of tonsillectomy (~2006) Family History Family/Other Breast cancer Maternal great grandmother--dx age unknown Colon cancer Paternal Great Uncle--dx age 60's Mother Heart disease Grandmother Heart disease Maternal Grandfather Hypertension Paternal Denies family history of Ovarian cancer Diabetes Hypercholesteremia Uterine cancer Thyroid disease Stroke Social History Smoking and tobacco/nicotine status: never used tobacco/nicotine Female Reproductive History: Date of last menstrual period: 05/24/24 Physical Exam 2 Const: GENERAL APPEARANCE: cooperative ORIENTATION/CONSCIOUSNESS: Yes awake, Yes oriented to person, Yes oriented to place and Yes oriented to time HENMT: COMMON NORMALS: normocephalic, atraumatic and hearing grossly normal bilaterally HEAD & SCALP: normocephalic and atraumatic Resp: COMMON NORMALS: normal respiratory effort, No retractions, No use of accessory muscles and clear to auscultation bilaterally AUSCULTATION: clear to auscultation bilaterally Cardio: COMMON NORMALS: regular rate, regular rhythm and No murmurs present (Cardio) RATE: regular rate RHYTHM: regular rhythm GI: COMMON NORMALS: No hepatosplenomegaly present AUSCULTATION: Yes normoactive bowel sounds PALPATION: Yes Tenderness to palpation present (GI), No Guarding due to palpation present (GI) and Yes No hepatosplenomegaly present Extremity: COMMON NORMALS: normal to inspection, capillary refill normal, no clubbing, cyanosis or edema, no calf tenderness and no pedal edema Neuro: SENSORIUM/ORIENTATION: Yes oriented to person, Yes oriented to place and Yes oriented to time Skin: COMMON NORMALS: no rashes or lesions noted GENERAL SKIN EXAM: no rashes or lesions noted Course 2 Vital Signs: Vital signs: Vital Signs Temperature 99.0 F 06/29/24 05:49 Pulse Rate 110 H 06/29/24 06:25 Respiratory Rate 20 H 06/29/24 08:44 Blood Pressure 107/54 06/29/24 07:30 Pulse Oximetry 100 06/29/24 08:44 Oxygen Delivery Me thod Room Air 06/29/24 05:49 MDM - Abdominal Pain Medical Decision Making Patient complaining of severe abdominal pain no guarding noted. Given morphine for pain. Discussed with Dr. Caro he will come see the patient he request that we repeat quantitative beta-hCG and ultrasound. Reviewed the case with Dr. Julian she felt that this is a corpus luteum cyst there is some fluid in the pelvis which she thinks may be from a ruptured ovarian cyst. There is nothing at this juncture that she sees that could could be definitively called ectopic . She did mention it is possible that there is an ovarian ectopic but those are uncommon and the ultrasound appearance appears to be more of that of a corpus luteum cyst. She does not have any leukocytosis. I think her tachycardia is largely due to pain as is her slight increase in respiratory rate. Her exam is not consistent with an acute appendicitis and she has no leukocytosis despite being several days into the discomfort. Will switch her from tramadol to hydrocodone. We set up an outpatient follow-up for her in 3 days at the [facility] to have a repeat beta-hCG subsequent ultrasound can be ordered as provider feels appropriate. Discussed with the patient at length that is very difficult to make a call for an ectopic when the beta-hCG is still less than 1500. Medical Records I reviewed the patient's medical records. Lab Data I reviewed the patient's lab results. 06/29/24 07:14 Labs/Radiology: Radiology Impressions Pelvic/Transvag US 06/29/24 06:39 IMPRESSION: 1. Thickened endometrium but no intrauterine gestation identified. 2. Thick-walled hypoechoic mass with central lucency measures 1.7 x 2.0 x 1.6 cm. Differential includes corpus luteum. Ovarian ectopic is not excluded but an ovarian ectopic is an unusual place for an ectopic although possible. Recommend continued serial follow-up beta hCG and transvaginal ultrasound follow-up to exclude ectopic. 3. Mildly complex free fluid in the pelvis. Complexity is probably based on proteinaceous content such as blood. Amount of fluid is slightly more than physiologic. Notified Jer Ashley DO at 06/29/2024 8:00 AM. Laboratory Results WBC 10.46 10^3/uL (4.5-13.0) 06/29/24 07:14 RBC 4.35 10^6/uL (3.85-5.65) 06/29/24 07:14 Hgb 12.20 g/dL (12.4-14.8) L 06/29/24 07:14 Hct 38.2 % (36-47) 06/29/24 07:14 MCV 87.8 fl (85-98) 06/29/24 07:14 MCH 28.0 pg (27-33) 06/29/24 07:14 MCHC 31.9 g/dL (30-55) 06/29/24 07:14 RDW 13.8 % (12.1-15.1) 06/29/24 07:14 Plt Count 292 10^3/cmm (157-399) 06/29/24 07:14 MPV 10.1 fL (7.4-10.4) 06/29/24 07:14 Neut % (Auto) 52.4 % 06/29/24 07:14 Lymph % (Auto) 39.0 % 06/29/24 07:14 Wells % (Auto) 5.4 % 06/29/24 07:14 Eos % (Auto) 2.4 % 06/29/24 07:14 Baso % (Auto) 0.6 % 06/29/24 07:14 Neut # (Auto) 5.48 10^3/uL (1.8-8.0) 06/29/24 07:14 Lymph # (Auto) 4.1 10^3/uL (1.5-6.5) 06/29/24 07:14 Wells # (Auto) 0.6 10^3/uL (0.2-0.9) 06/29/24 07:14 Eos # (Auto) 0.3 10^3/uL (0.0-0.8) 06/29/24 07:14 Baso # (Auto) 0.1 10^3/uL (0.0-0.1) 06/29/24 07:14 Nucleated RBC % (auto) 0 % 06/29/24 07:14 Nucleated RBCs # 0.0 /100WBC 06/29/24 07:14 Lipase 31 U/L (13-60) 06/29/24 07:14 Ser , Semi-Qnt 731.00 mIU/mL 06/29/24 07:14 All radiology interpretation(s) finalized by discharge Discharge Plan Discharge Patient Disposition: Home Clinical Impression: Pelvic pain Condition: Stable Prescriptions: New hydrocodone-acetaminophen 5-325 mg tablet 1 tab PO Q6H PRN (Reason: pain) Qty: 15 0RF Discontinued tramadol 50 mg tablet 50 mg PO Q8H PRN (Reason: pain) Qty: 10 0RF No Action cefdinir 300 mg capsule 300 mg PO BID Qty: 14 0RF ondansetron 4 mg tablet,disintegrating 4 mg PO Q6H PRN (Reason: nausea and vomiting) Qty: 14 0RF Discharge Orders: Discharge ED (Routine); Ordered 06/29/24 Ordered By: Jer Ashley Referrals: Eric Morillo [Primary Care Provider] - Discharge Diet: Usual diet Discharge Activity: Increase activity as tolerated Patient Instructions: Opioid Safety, Pain Management Activity Restrictions/Additional Instructions: Thank you for choosing [facility] for your healthcare needs today. It is very important that you follow up as instructed or that you return to the Emergency Department should you have concerns or if your condition changes or worsens in any way. You are seen in the emergency room after being evaluated at [facility] for a ectopic . Technically it is difficult to diagnose a ectopic when the beta-hCG is less than 1500. Your beta-hCG has increased appropriately since your visit on June 27. On the ultrasound the right ovary appears to have a corpus luteum cyst suspect this is what was seen at [facility] and they were concerned about. There also is some fluid in the pelvis radiology suspected you had ruptured a small ovarian cyst which likely has some blood in it which is accounting for the pain. Dr. Caro and on-call secure software assessor reviewed your laboratory work and the ultrasound he concurs with this conclusion. He recommends that you have a repeat beta-hCG in 72 hours. Follow- up ultrasound will also be scheduled pending the beta-hCG results. Recommend that you use hydrocodone instead of the tramadol for pain. Coding Level of Care Code ED Medical Insurance Claims Specialist for Reny Corbin
[2024-06-29 06:25] VITALS: BP 109/51; PULSE 110; RESP 16; O2SAT 100
[2024-06-29] MEDS: morphine 4 mg/mL SDV 1 mL 2 MG IVP ×2 (06:33→08:44)
--- NOTE | 2024-06-29 06:39 | US_ITS ---
WS: [id number] US pelvis lmt w transvag HISTORY: r ovarian mass , RLQ pain COMPARISON: Prior exam from an outside hospital dated 06/29/2024 Uterus: 7.9 cm x 6.1 cm x 3.7 cm. Normal size retroverted uterus. No fibroid or mass identified. Endometrium: 1.6 cm. Moderately thickened heterogeneous endometrium. No intrauterine gestational sac. Right ovary: 4.3 cm x 3.0 cm x 2.6 cm. RIGHT ovary is very slightly enlarged. There are several small follicles. There is a hypoechoic mass with central cyst and increased peripheral vascularity associa deisi with the RIGHT ovary. This hypoechoic complex mass measures 1.7 x 2.0 x 1.6 cm. There is a small amount of adjacent fluid in the RIGHT adnexa. Left ovary: 3.8 cm x 1.8 cm x 1.5 cm. Normal size and vascularity, no cystic or solid masses. Mildly complex free fluid in the pelvis. Fluid is predominantly in the cul-de-sac and to the RIGHT of midline. Fluid is complex suggesting bladder infection is present. US/US pelvis lmt w transvag IMPRESSION: 1. Thickened endometrium but no intrauterine gestation identified. 2. Thick-walled hypoechoic mass with central lucency measures 1.7 x 2.0 x 1.6 cm. Differential includes corpus luteum. Ovarian ectopic is not excluded but an ovarian ectopic is an unusual place for an ectopic although possible. Recommen d continued serial follow-up beta hCG and transvaginal ultrasound follow-up to exclude ectopic. 3. Mildly complex free fluid in the pelvis. Complexity is probably based on pr oteinaceous content such as blood. Amount of fluid is slightly more than physio logic. Notified Jer Ashley DO at 06/29/2024 8:00 AM.
[2024-06-29 07:20] LABS: Basophils # 0.1 10^3/uL (0.0-0.1); Basophils % 0.6 %; Eosinophils # 0.3 10^3/uL (0.0-0.8); Eosinophils % 2.4 %; Hematocrit 38.2 % (36-47); Lymphocytes # 4.1 10^3/uL (1.5-6.5); Mean Corpuscular HGB Conc 31.9 g/dL (30-55); Mean Corpuscular Volume 87.8 fl (85-98); Mean Platelet Volume 10.1 fL (7.4-10.4); Monocytes # 0.6 10^3/uL (0.2-0.9); Monocytes % 5.4 %; Neutrophils # 5.48 10^3/uL (1.8-8.0); Neutrophils % 52.4 %; Nucleated Red Blood Cells % 0 %; Platelet Count 292 10^3/cmm (157-399); Red Blood Count 4.35 10^6/uL (3.85-5.65); Red Cell Distribution Width 13.8 % (12.1-15.1); White Blood Count 10.46 10^3/uL (4.5-13.0)
[2024-06-29 07:30] VITALS: BP 107/54
[2024-06-29 07:50] LABS: Lipase 31 U/L (13-60)
[2024-06-29 08:30] VITALS: O2SAT 99
[2024-06-29 08:44] VITALS: RESP 20; O2SAT 100
[2024-06-29 09:13] VITALS: BP 110/62; PULSE 83; O2SAT 99
== END 2024-06-29 09:14 | disposition home or self-care (01) ==
PROVIDERS: Emergency Provider Family Medicine; PCP Family Medicine
DX: R10.2 Pelvic and perineal pain (principal)
CPT/HCPCS: 36415; 76830; 76857; 83690; 84702; 85025; 96374; 96376; 99285; J2270

== ENCOUNTER → 2024-07-02 14:21 | Outpatient (BNVA) | payer MEDICAID, SELFPAY | PROVIDERS: PCP Family Medicine; Visit Provider Nurse Practitioner Women's Health | DX: R10.9 Unspecified abdominal pain (principal); Z34.90 Encounter for supervision of normal pregnancy, unspecified, unspecified trimester | CPT/HCPCS: 76817; 84702 ==

== ENCOUNTER → 2024-07-08 08:32 | Outpatient (BNVA) | payer MEDICAID, SELFPAY | PROVIDERS: PCP Family Medicine; Visit Provider Nurse Practitioner Women's Health | DX: Z3A.01 Less than 8 weeks gestation of pregnancy (principal); R10.9 Unspecified abdominal pain | CPT/HCPCS: 76817 ==

== ENCOUNTER → 2024-07-15 09:10 | Outpatient (BNVA) | payer MEDICAID, SELFPAY | PROVIDERS: PCP Family Medicine; Visit Provider Nurse Practitioner Women's Health | DX: O21.9 Vomiting of pregnancy, unspecified; N91.2 Amenorrhea, unspecified; Z32.01 Encounter for pregnancy test, result positive | CPT/HCPCS: 84315; 86850; 86900 ==

== ENCOUNTER → 2024-07-21 13:02 | Outpatient (BNVA) | payer MEDICAID, SELFPAY | PROVIDERS: PCP Family Medicine; Visit Provider Nurse Practitioner Women's Health | DX: R10.9 Unspecified abdominal pain (principal); Z36.9 Encounter for antenatal screening, unspecified; Z3A.01 Less than 8 weeks gestation of pregnancy | CPT/HCPCS: 76801 ==

== ENCOUNTER 2024-08-08 13:24 | Emergency (ER) | payer MEDICAID, SELFPAY ==
[2024-08-08 13:29] VITALS: BP 108/69; PULSE 96; RESP 18; TEMP 36.8; O2SAT 100; BMI 21.6
--- NOTE | 2024-08-08 13:30 | ECG_ITS ---
[facility]24[facility]08 Pat Name: Lorena House Department: Room: Gender: Female Party Plan Sales Host/Hostess: : 2005 Requested By: Rachel Bejarano Order Number: [id number] Celeste MD: Juanpablo Katz M.D. Measurements Intervals Mission Rate: 80 P: 75 SC: 120 QRS: 91 QRSD: 74 T: 50 QT: 371 QTc: 429 Interpretive Statements SINUS RHYTHM WITH MARKED SINUS ARRHYTHMIA BORDERLINE RIGHT AXIS DEVIATION [QRS AXIS > 90] NONSPECIFIC ST & T-WAVE ABNORMALITY Compared to ECG 09/19/2022 14:43:44 No significant changes Electronically Signed On 08-09-2024 20:07:56 ANAESTHETIC TECHNICIAN by Juanpablo Katz M.D. [email or web address]
--- NOTE | 2024-08-08 13:40 | USR_ITS ---
PROCEDURE INFORMATION: Exam: US Duplex Left Lower Extremity Veins, Limited Exam date and time: 08/08/2024 2:34 PM Age: 18 years old Clinical indication: Pain; Leg, lower; Left; Additional info: Leg pain TECHNIQUE: Imaging protocol: Real-time duplex ultrasound of the left extremity with 2-D bueno scale, color Doppler flow and spectral waveform analysis including responses to compression and other maneuvers (when performed) with image documentation. Limited exam focused on the left lower extremity veins. COMPARISON: US OB <= 14 weeks fetus [id number] 07/21/2024 1:05 PM FINDINGS: Left deep veins: Unremarkable. The common femoral, femoral, proximal profunda femoral and popliteal veins are patent without thrombus. Normal Doppler waveforms. Normal compressibility and/or augmentation response. Superficial veins: Greater saphenous vein at the saphenofemoral junction is patent without thrombus. Soft tissues: Unremarkable. US/[place] [id number] IMPRESSION: No evidence of deep vein thrombosis.
[2024-08-08 15:07] VITALS: BP 115/67; PULSE 84; RESP 22; O2SAT 100
--- NOTE | 2024-08-08 15:23 | ED_ITS ---
HPI - Extremity Problem 2 General: Chief complaint: Extremity Problem,Nontraumatic Stated complaint: chest pain , 10 wks Time Seen by Provider: 08/08/24 15:12 Source: patient Mode of arrival: ambulatory Limitations: no limitations History of Present Illness: 18-year-old female is currently 10 weeks states she been having pain in her left calf states she has had pain in it previously that she is concerned about a DVT states she is also been having vomiting has been able tolerating medicine she had some mild dyspnea denies any severe shortness of breath denies any chest pain currently Associated symptoms: Deny chest pain, fever(s) or rash Related Data Home Medications Medication Instructions Recorded Confirmed famotidine 40 mg tablet 40 mg PO DAILY 08/08/24 08/08/24 Previous Rx's Medication Instructions Recorded ondansetron 4 mg disintegrating 4 mg PO Q8H PRN nausea and 07/15/24 tablet vomiting #30 tabs Allergies Allergy/AdvReac Type Severity Reaction Status Date / Time amoxicillin [From Augmentin] Allergy ALGY-Anaphy Verified 08/08/24 13:33 laxis clavulanic acid Allergy ALGY-Anaphy Verified 08/08/24 13:33 [From Augmentin] laxis fentanyl Allergy ALGY-Difficulty Verified 08/08/24 13:33 Breathing kiwi Allergy ALGY-Difficulty Verified 08/08/24 13:33 Breathing metoclopramide [From Reglan] Allergy ALGY-Difficulty Verified 08/08/24 13:33 Breathing promethazine [From Phenergan] Allergy ADR-Halluci Verified 08/08/24 13:33 nating shrimp Allergy ALGY-Difficulty Verified 08/08/24 13:33 Breathing Review of Systems 2 Const: Denies: fever(s), chills, body aches or change in appetite ENMT: Denies: throat pain or dental pain Card: Denies: chest pain Resp: Reports: dyspnea GI: Reports: nausea and vomiting; Denies: abdominal pain or diarrhea Musc: Reports: extremity pain; Denies: neck pain or back pain Skin/Breast: Denies: rash Neuro: Denies: headache(s) PFSH ED 2 PFSH: Medical History Mastitis Normal COVID No pertinent past medical history neghx: htn,dm,thyroid,dvt/pe PCP: Dr. Morillo Anxiety Surgical History Hx laparoscopic cholecystectomy (~2020) Hx of tonsillectomy (~2006) Family History Family/Other Breast cancer Maternal great grandmother--dx age unknown Colon cancer Paternal Great Uncle--dx age 60's Mother Heart disease Grandmother Heart disease Maternal Grandfather Hypertension Paternal Denies family history of Ovarian cancer Diabetes Hypercholesteremia Uterine cancer Thyroid disease Stroke Social History Smoking and tobacco/nicotine status: never used tobacco/nicotine Physical Exam 2 Const: COMMON NORMALS: no acute distress, patient oriented x3 and healthy appearing HENMT: COMMON NORMALS: normocephalic and atraumatic HEAD & SCALP: n ormocephalic and atraumatic Eye: COMMON NORMALS: Equal, round and reactive pupils present and EOMs intact bilaterally PUPIL: Yes Equal, round and reactive pupils present Neck/C-Spine: COMMON NORMALS: full ROM and supple Chest: COMMONS NORMALS: normal inspection of the chest and normal palpation of entire chest wall Resp: COMMON NORMALS: normal respiratory effort, No retractions, No use of accessory muscles and clear to auscultation bilaterally AUSCULTATION: clear to auscultation bilaterally Cardio: COMMON NORMALS: regular rate, regular rhythm and No murmurs present (Cardio) RATE: regular rate RHYTHM: regular rhythm GI: COMMON NORMALS: Normal to inspection, nondistended, normoactive bowel sounds present, Soft to palpation, non-tender and no masses PALPATION: Yes Soft to palpation Extremity: COMMON NORMALS: normal to inspection and full ROM Neuro: COMMON NORMALS: patient oriented x3, moves all extremities and no focal motor deficits Psych: COMMON NORMALS: mental status grossly normal, Normal thought process present and cooperative THOUGHT PROCESS: Normal thought process present Skin: COMMON NORMALS: no rashes or lesions noted and no wounds GENERAL SKIN EXAM: no rashes or lesions noted Course 2 Vital Signs: Vital signs: Vital Signs Temperature 98.2 F 08/08/24 13:29 Pulse Rate 71 08/08/24 16:43 Respiratory Rate 21 H 08/08/24 16:43 Blood Pressure 106/56 08/08/24 16:43 Pulse Oximetry 100 08/08/24 16:43 Oxygen Delivery Me thod Room Air 08/08/24 13:29 MDM - Extremity (Nontraumatic) Medical Decision Making Patient presents here with some left leg pain exam is benign ultrasound showed no DVT had nausea and vomiting as well blood work here is normal no related complaint or pain she feels improved after fluids and Zofran she stable for discharge follow-up PCP return if worsening. Medical Records I reviewed the patient's medical records. Lab Data I reviewed the patient's lab results. 08/08/24 15:25 08/08/24 15:25 Radiology Impressions Venous Duplex 08/08/24 13:40 IMPRESSION: No evidence of deep vein thrombosis. Laboratory Results WBC 9.45 10^3/uL (4.5-13.0) 08/08/24 15:25 RBC 4.48 10^6/uL (3.85-5.65) 08/08/24 15:25 Hgb 12.70 g/dL (12.4-14.8) 08/08/24 15:25 Hct 39.1 % (36-47) 08/08/24 15:25 MCV 87.3 fl (85-98) 08/08/24 15:25 MCH 28.3 pg (27-33) 08/08/24 15:25 MCHC 32.5 g/dL (30-55) 08/08/24 15:25 RDW 13.2 % (12.1-15.1) 08/08/24 15:25 Plt Count 315 10^3/cmm (157-399) 08/08/24 15:25 MPV 10.0 fL (7.4-10.4) 08/08/24 15:25 Neut % (Auto) 73.1 % 08/08/24 15:25 Lymph % (Auto) 20.2 % 08/08/24 15:25 Morton % (Auto) 5.5 % 08/08/24 15:25 Eos % (Auto) 0.5 % 08/08/24 15:25 Baso % (Auto) 0.3 % 08/08/24 15:25 Neut # (Auto) 6.90 10^3/uL (1.8-8.0) 08/08/24 15:25 Lymph # (Auto) 1.9 10^3/uL (1.5-6.5) 08/08/24 15:25 Morton # (Auto) 0.5 10^3/uL (0.2-0.9) 08/08/24 15:25 Eos # (Auto) 0.1 10^3/uL (0.0-0.8) 08/08/24 15:25 Baso # (Auto) 0.0 10^3/uL (0.0-0.1) 08/08/24 15:25 Nucleated RBC % (auto) 0 % 08/08/24 15:25 Nucleated RBCs # 0.0 /100WBC 08/08/24 15:25 Sodium 135 mmol/L (136-145) L 08/08/24 15:25 Potassium 3.8 mmol/L (3.5-5.1) 08/08/24 15:25 Chloride 100 mmol/L (98-107) 08/08/24 15:25 Carbon Dioxide 22 mmol/L (22-29) 08/08/24 15:25 Anion Gap 16.8 (5-19) 08/08/24 15:25 BUN 8 mg/dL (6-20) 08/08/24 15:25 Creatinine 0.4 mg/dL (0.5-0.9) L 08/08/24 15:25 GFR Calculation 203.5 mL/min (90-130) H 08/08/24 15:25 Glucose 95 mg/dL (65-115) 08/08/24 15:25 Calculated Osmolality 278 mOsm/kg (285-295) L 08/08/24 15:25 Calcium 9.2 mg/dL (8.5-10.5) 08/08/24 15:25 Total Bilirubin 0.4 mg/dL (0.15-1.2) 08/08/24 15:25 AST 17 U/L (0-32) 08/08/24 15:25 ALT 17 U/L (0-33) 08/08/24 15:25 Alkaline Phosphatase 72 U/L (35-105) 08/08/24 15:25 Total Protein 6.9 g/dL (6.6-8.7) 08/08/24 15:25 Albumin 3.8 g/dL (3.5-5.2) 08/08/24 15:25 Globulin 3.1 g/dL (1.3-4.6) 08/08/24 15:25 Urine Color Yellow (Yellow) 08/08/24 16:25 Urine Appearance Clear (CLEAR) 08/08/24 16:25 Urine pH 7.0 (5-7) 08/08/24 16:25 Ur Specific [place] 1.017 (1.005-1.030) 08/08/24 16:25 Urine Protein Negative (Negative) 08/08/24 16:25 Urine Glucose (UA) Negative (Normal) 08/08/24 16:25 Urine Ketones 1+ (Negative) H 08/08/24 16:25 Urine Blood Negative (Negative) 08/08/24 16:25 Urine Nitrate Negative (Negative) 08/08/24 16:25 Urine Bilirubin Negative (Negative) 08/08/24 16:25 Urine Urobilinogen 0.2 mg/dL (Negative) 08/08/24 16:25 Ur Leukocyte Esterase Negative (Negative) 08/08/24 16:25 Amorphous Sediment Not Reportable 08/08/24 16:25 All radiology interpretation(s) finalized by discharge EKG Data EKG 1: I personally reviewed and interpreted this EKG as follows: EKG interpretation date: 08/08/24 EKG interpretation time: 13:30 Interpretation: nsr hr [address] elevation qrs 74 qtc 407 Discharge Plan Discharge Patient Disposition: Home Clinical Impression: Leg pain, Vomiting affecting Condition: Stable Prescriptions: No Action ondansetron 4 mg tablet,disintegrating 4 mg PO Q8H PRN (Reason: nausea and vomiting) Qty: 30 1RF famotidine 40 mg tablet 40 mg PO DAILY Discharge Orders: Discharge ED (Routine); Ordered 08/08/24 Ordered By: Rachel Bejarano Referrals: Eric Morillo [Primary Care Provider] - Discharge Diet: Advance as tolerated Discharge Activity: Resume usual activity Patient Instructions: Nausea and Vomiting in (ED) Coding Level of Care Code ED Air Valve Mechanic for Reny Corbin
[2024-08-08 15:30] LABS: Basophils % 0.3 %; Eosinophils # 0.1 10^3/uL (0.0-0.8); Eosinophils % 0.5 %; Hematocrit 39.1 % (36-47); Lymphocytes # 1.9 10^3/uL (1.5-6.5); Lymphocytes % 20.2 %; Mean Corpuscular HGB Conc 32.5 g/dL (30-55); Mean Corpuscular Hemoglobin 28.3 pg (27-33); Mean Corpuscular Volume 87.3 fl (85-98); Monocytes # 0.5 10^3/uL (0.2-0.9); Monocytes % 5.5 %; Neutrophils % 73.1 %; Nucleated Red Blood Cells % 0 %; Platelet Count 315 10^3/cmm (157-399); Red Blood Count 4.48 10^6/uL (3.85-5.65); Red Cell Distribution Width 13.2 % (12.1-15.1); White Blood Count 9.45 10^3/uL (4.5-13.0)
[2024-08-08] MEDS: sodium chloride 0.9% 1,000 ML 999 ML IV (15:43)
[2024-08-08] MEDS: ondansetron 2 mg/ML SDV 2 mL 4 MG IVP (15:45)
[2024-08-08 15:49] LABS: Alanine Aminotransferase 17 U/L (0-33); Albumin Level 3.8 g/dL (3.5-5.2); Alkaline Phosphatase 72 U/L (35-105); Anion Gap 16.8 (5-19); Aspartate Amino Transferase 17 U/L (0-32); Blood Urea Nitrogen 8 mg/dL (6-20); Calcium 9.2 mg/dL (8.5-10.5); Carbon Dioxide 22 mmol/L (22-29); Chloride 100 mmol/L (98-107); Creatinine Clr Calc Pharmacy 204.6616; Globulin 3.1 g/dL (1.3-4.6); Glomerular Filtration Rate 203.5 mL/min (90-130); Glucose 95 mg/dL (65-115); Osmolality Calculated 278 mOsm/kg (285-295); Potassium 3.8 mmol/L (3.5-5.1); Sodium 135 mmol/L (136-145); Total Bilirubin 0.4 mg/dL (0.15-1.2); Total Protein 6.9 g/dL (6.6-8.7)
[2024-08-08 16:20] VITALS: PULSE 70; RESP 15; O2SAT 100
[2024-08-08 16:31] LABS: Bilirubin Urine Negative (Negative); Blood Urine Negative (Negative); Glucose Urine UA Negative (Normal); Ketones Urine 1+ (Negative); Leukocyte Esterase Urine Negative (Negative); Nitrate Urine Negative (Negative); Protein Urine Negative (Negative); Specific Gravity, Urine 1.017 (1.005-1.030); Urine Appearance Clear (CLEAR); Urine Color Yellow (Yellow); Urobilinogen Urine 0.2 mg/dL (Negative)
[2024-08-08 16:36] LABS: Add Urine Microscopic? YES; Bacteria Urine None Seen /hpf; Hyaline Casts Urine 0.81 /lpf; RBC Urine 0-2 /hpf (0-2)
[2024-08-08 16:43] VITALS: BP 106/56; PULSE 71; RESP 21; O2SAT 100
[2024-08-08 16:46] LABS: UA Slide Review UA Slide Review Perf
[2024-08-08 16:53] VITALS: BP 105/59; PULSE 78; O2SAT 97
== END 2024-08-08 16:57 | disposition home or self-care (01) ==
PROVIDERS: Emergency Provider Emergency Medicine; PCP Family Medicine
DX: M79.605 Pain in left leg (principal); O21.9 Vomiting of pregnancy, unspecified; Z3A.10 10 weeks gestation of pregnancy
CPT/HCPCS: 80053; 81001; 85025; 93005; 93971; 96374; 99284; J2405; J7030

== ENCOUNTER → 2024-08-11 08:56 | Outpatient (BNVA) | payer MEDICAID, SELFPAY | PROVIDERS: PCP Family Medicine; Visit Provider Nurse Practitioner Women's Health | DX: Z34.91 Encounter for supervision of normal pregnancy, unspecified, first trimester (principal); K59.00 Constipation, unspecified | CPT/HCPCS: 80307; 84315; 84443; 85025; 86592; 86762; 86803; 86850; 86900; 87086; 87340; 87491; 87591; 87661; 87806 ==

== ENCOUNTER → 2024-08-19 10:02 | Outpatient (BNVA) | payer MEDICAID, SELFPAY | PROVIDERS: PCP Family Medicine; Visit Provider Obstetrics & Gynecology | DX: Z34.90 Encounter for supervision of normal pregnancy, unspecified, unspecified trimester (principal); Z3A.00 Weeks of gestation of pregnancy not specified | CPT/HCPCS: 84315 ==

== ENCOUNTER → 2024-09-29 08:17 | Outpatient (BNVA) | payer MEDICAID, SELFPAY | PROVIDERS: PCP Family Medicine; Visit Provider Nurse Practitioner Women's Health | DX: D64.9 Anemia, unspecified (principal); Z34.90 Encounter for supervision of normal pregnancy, unspecified, unspecified trimester | CPT/HCPCS: 82306; 82728; 82746; 83550; 84315; 84466; 85025 ==

== ENCOUNTER 2024-10-02 20:43 | Emergency (ER) | payer MEDICAID, SELFPAY ==
[2024-10-02 20:53] VITALS: BP 109/65; PULSE 97; RESP 16; TEMP 36.8; O2SAT 99
[2024-10-02 22:49] LABS: Basophils % 0.3 %; Eosinophils # 0.2 10^3/uL (0.0-0.8); Eosinophils % 1.6 %; Lymphocytes # 2.2 10^3/uL (1.5-6.5); Lymphocytes % 18.8 %; Mean Corpuscular HGB Conc 32.4 g/dL (30-55); Mean Corpuscular Hemoglobin 28.5 pg (27-33); Mean Corpuscular Volume 88.2 fl (85-98); Mean Platelet Volume 10.8 fL (7.4-10.4); Monocytes # 0.6 10^3/uL (0.2-0.9); Monocytes % 5.4 %; Neutrophils # 8.45 10^3/uL (1.8-8.0); Neutrophils % 73.6 %; Nucleated Red Blood Cells % 0 %; Platelet Count 265 10^3/cmm (157-399); Red Blood Count 4.31 10^6/uL (3.85-5.65); Red Cell Distribution Width 13.1 % (12.1-15.1); White Blood Count 11.46 10^3/uL (4.5-13.0)
[2024-10-02 23:06] LABS: Blood Urea Nitrogen 7 mg/dL (6-20); Calcium 9.3 mg/dL (8.5-10.5); Carbon Dioxide 22 mmol/L (22-29); Chloride 107 mmol/L (98-107); Creatinine Clr Calc Pharmacy 8.5354; Glomerular Filtration Rate 203.5 mL/min (90-130); Glucose 88 mg/dL (65-115); Osmolality Calculated 285 mOsm/kg (285-295); Sodium 139 mmol/L (136-145)
--- NOTE | 2024-10-02 23:33 | USR_ITS ---
PROCEDURE INFORMATION: Exam: US , Limited Exam date and time: 10/02/2024 11:35 PM Age: 18 years old Clinical indication: Other: Post to anterior pain; Gestational age or lmp: 18w; ; Additional info: Trauma LABS AND CLINICAL REPORTS: Gestational age (Established): 18 w 1 d Estimated due date (Established): 03/04/2025 TECHNIQUE: Imaging protocol: Real-time ultrasound of the maternal uterus with image documentation. Exam focused on the clinical indication. COMPARISON: US OB <= 14 weeks fetus [id number] 07/21/2024 1:05 PM FINDINGS: Gestation: Single viable intrauterine gestation. heart rate: 148 bpm presentation and position: Breech presentation. Placenta: Fundal placenta without evidence of previa or abruption. MATERNAL: Cervix: Cervical length measures 3.4 cm. US/US OB limited [id number] IMPRESSION: Single viable intrauterine gestation. No acute abnormality.
== END 2024-10-03 01:01 | disposition left against medical advice (07) ==
PROVIDERS: Emergency Medicine; Emergency Provider Family Medicine; PCP Family Medicine
DX: Z53.21 Procedure and treatment not carried out due to patient leaving prior to being seen by health care provider (principal)
CPT/HCPCS: 36415; 76815; 80048; 85025

== ENCOUNTER → 2024-10-14 09:17 | Outpatient (BNVA) | payer MEDICAID, SELFPAY | PROVIDERS: PCP Family Medicine; Visit Provider Obstetrics & Gynecology | DX: Z34.92 Encounter for supervision of normal pregnancy, unspecified, second trimester (principal) | CPT/HCPCS: 76805 ==

== ENCOUNTER → 2024-10-21 13:48 | Outpatient (BNVA) | payer MEDICAID, SELFPAY | PROVIDERS: PCP Family Medicine; Visit Provider Obstetrics & Gynecology | DX: Z34.92 Encounter for supervision of normal pregnancy, unspecified, second trimester (principal) | CPT/HCPCS: 84315 ==

== ENCOUNTER 2024-10-22 14:45 | Outpatient (CLI) | payer MEDICAID, SELFPAY ==
[2024-10-22] VITALS (8 sets, daily range): BP systolic 99–118; BP diastolic 54–60; PULSE 61–93; RESP 16; BMI 25.0
[2024-10-22 15:34] LABS: Bilirubin Urine Negative (Negative); Blood Urine 2+ (Negative); Glucose Urine UA Negative (Normal); Ketones Urine Negative (Negative); Leukocyte Esterase Urine Trace (Negative); Nitrate Urine Negative (Negative); Protein Urine Negative (Negative); Specific Gravity, Urine 1.018 (1.005-1.030); Urine Appearance Clear (CLEAR); Urine Color Yellow (Yellow); Urobilinogen Urine 0.2 mg/dL (Negative)
[2024-10-22 15:39] LABS: Bacteria Urine None Seen /hpf; Hyaline Casts Urine 0-4 /lpf; RBC Urine >100 /hpf (0-2); WBC Urine 0-5 /hpf (0-5)
[2024-10-22 15:42] LABS: Add Urine Culture? Yes
--- NOTE | 2024-10-22 15:45 | USR_ITS ---
PROCEDURE INFORMATION: Exam: US Retroperitoneal, Complete, Kidneys and Bladder Exam date and time: 10/22/2024 4:01 PM Age: 19 years old Clinical indication: Other: Possible kidney sound; TECHNIQUE: Imaging protocol: Real-time ultrasound of the retroperitoneum with image documentation. Complete exam focused on the bilateral kidneys and urinary bladder. COMPARISON: US OB >= 14 weeks fetus [id number] 10/14/2024 9:22 AM FINDINGS: Right kidney: Right kidney measures 11 cm in length. No stones. Mild hydronephrosis. Left kidney: Left kidney measures 11.9 cm in length. No stones. No hydronephrosis. Urinary bladder: Unremarkable. US/US renal BI* [id number] IMPRESSION: No evidence of stones. Mild right hydronephrosis.
[2024-10-22] MEDS: dextrose 5%-lactated ringers 1,000 ML 125 ML IV (16:30)
--- NOTE | 2024-10-22 18:19 | PM.OPHPUD ---
Labor & Delivery H&P Update Date of Procedure: October 22, 2024 Date H&P Performed: 10/21/24 H&P update information: I have reviewed H&P completed within last 30 days, I have examined patient prior to procedure and No changes to prior documentation Admission Diagnosis:
[2024-10-22] MEDS: HYDROcodone-acetaminophen 5-325 mg Tablet PO (19:32)
[2024-10-23 00:06] VITALS: BP 103/58; PULSE 80
[2024-10-23] MEDS: dextrose 5%-lactated ringers 1,000 ML 125 ML IV ×2 (00:30→08:09)
[2024-10-23] MEDS: HYDROcodone-acetaminophen 5-325 mg Tablet PO ×2 (03:44→11:08)
[2024-10-23 03:58] VITALS: BP 116/56; PULSE 96
[2024-10-23] MEDS: ondansetron 2 mg/ML SDV 2 mL 4 MG IVP (06:15)
[2024-10-23 09:41] VITALS: BP 110/64; PULSE 89
[2024-10-23 11:58] VITALS: BP 117/65; PULSE 96; TEMP 36.4
[2024-10-23 12:45] VITALS: BP 117/65; PULSE 96; RESP 16; TEMP 36.4
== END 2024-10-23 12:45 | disposition home or self-care (01) ==
LOC: OPOB 14:49 → OBGYN 14:50
PROVIDERS: PCP Family Medicine; Visit Provider Obstetrics & Gynecology
DX: O23.02 Infections of kidney in pregnancy, second trimester (principal); Z3A.21 21 weeks gestation of pregnancy; N13.30 Unspecified hydronephrosis
CPT/HCPCS: 76770; 81001; 87086; 99211; J7121

== ENCOUNTER → 2024-11-11 08:41 | Outpatient (BNVA) | payer MEDICAID, SELFPAY | PROVIDERS: PCP Family Medicine; Visit Provider Nurse Practitioner Women's Health | DX: Z36.9 Encounter for antenatal screening, unspecified (principal) | CPT/HCPCS: 76816; 81000 ==

== ENCOUNTER 2024-11-17 02:36 | Outpatient (CLI) | payer MEDICAID, SELFPAY ==
[2024-11-17 02:40] VITALS: BMI 26.6
[2024-11-17 02:49] VITALS: BP 107/52; PULSE 77
[2024-11-17 03:04] VITALS: BP 103/57; PULSE 88
[2024-11-17 03:11] LABS: Bacteria Urine None Seen /hpf; RBC Urine 0-2 /hpf (0-2); WBC Urine 0-5 /hpf (0-5)
[2024-11-17 03:12] LABS: Bilirubin Urine Neg (Negative); Blood Urine Neg (Negative); Glucose Urine UA Norm (Normal); Ketones Urine Negative (Negative); Leukocyte Esterase Urine Negative (Negative); Nitrate Urine Negative (Negative); Protein Urine Neg (Negative); Urine Appearance Slightly Cloudy (CLEAR); Urine Color Yellow (Yellow); Urobilinogen Urine Neg (Negative); pH Urine 7 (5-7)
[2024-11-17 03:19] VITALS: BP 97/52; PULSE 93
[2024-11-17 03:34] VITALS: BP 95/52; PULSE 93
[2024-11-17 03:49] VITALS: BP 96/55; PULSE 86
[2024-11-17] MEDS: acetaminophen 500 mg Tablet 1000 MG PO (03:52)
[2024-11-17 04:04] VITALS: BP 97/56; PULSE 91
== END 2024-11-17 08:10 | disposition home or self-care (01) ==
LOC: OPOB 02:37 → OBGYN 02:38
PROVIDERS: Absent Provider Obstetrics & Gynecology; PCP Family Medicine; Visit Provider Obstetrics & Gynecology
DX: O26.899 Other specified pregnancy related conditions, unspecified trimester (principal); Z3A.00 Weeks of gestation of pregnancy not specified; R10.9 Unspecified abdominal pain
CPT/HCPCS: 81001; 99211; J9999

== ENCOUNTER → 2024-12-10 10:10 | Outpatient (BNVA) | payer MEDICAID, SELFPAY | PROVIDERS: PCP Family Medicine; Visit Provider Obstetrics & Gynecology | DX: Z34.90 Encounter for supervision of normal pregnancy, unspecified, unspecified trimester (principal) | CPT/HCPCS: 82950; 84315; 85025 ==

== ENCOUNTER 2024-12-21 20:27 | Outpatient (CLI) | payer MEDICAID, SELFPAY ==
[2024-12-21] VITALS (40 sets, daily range): BP systolic 93–122; BP diastolic 52–72; PULSE 68–107; RESP 16; TEMP 36–36.7; O2SAT 91–100; BMI 27.6
--- NOTE | 2024-12-21 21:21 | XRR_ITS ---
PROCEDURE INFORMATION: Exam: XR Chest Exam date and time: 12/21/2024 9:31 PM Age: 19 years old Clinical indication: Pain; Chest pressure; Additional info: Chest pain TECHNIQUE: Imaging protocol: Radiologic exam of the chest. Views: 1 view. COMPARISON: CR XR chest 1V portable [id number] 09/19/2022 4:49 PM FINDINGS: Lungs: Unremarkable. No consolidation. Pleural spaces: Unremarkable. No pleural effusion. No pneumothorax. Heart/Mediastinum: Unremarkable. No cardiomegaly. Bones/joints: Unremarkable. XR/XR chest 1V [id number] IMPRESSION: No acute findings.
[2024-12-21 21:30] LABS: Basophils % 0.3 %; Eosinophils # 0.2 10^3/uL (0.0-0.8); Eosinophils % 1.9 %; Hematocrit 37.5 % (36-47); Lymphocytes # 2.2 10^3/uL (0.8-4.8); Mean Corpuscular HGB Conc 32.3 g/dL (30-55); Mean Corpuscular Hemoglobin 28.1 pg (27-33); Mean Platelet Volume 10.5 fL (7.4-10.4); Monocytes # 0.7 10^3/uL (0.2-0.9); Monocytes % 6.6 %; Neutrophils # 6.96 10^3/uL (1.8-7.7); Neutrophils % 68.8 %; Nucleated Red Blood Cells % 0 %; Platelet Count 252 10^3/cmm (157-399); Red Blood Count 4.31 10^6/uL (3.85-5.65); Red Cell Distribution Width 13.6 % (12.1-15.1); White Blood Count 10.12 10^3/uL (3.29-11.43)
[2024-12-21 21:32] LABS: Bilirubin Urine Negative (Negative); Blood Urine Negative (Negative); Glucose Urine UA Negative (Normal); Ketones Urine Negative (Negative); Leukocyte Esterase Urine Negative (Negative); Nitrate Urine Negative (Negative); Protein Urine Negative (Negative); Specific Gravity, Urine 1.009 (1.005-1.030); Urine Appearance Clear (CLEAR); Urine Color Yellow (Yellow); Urobilinogen Urine 0.2 mg/dL (Negative)
[2024-12-21 21:37] LABS: Bacteria Urine None Seen /hpf; Hyaline Casts Urine 0-4 /lpf; RBC Urine 0-2 /hpf (0-2); Squamous Epithelial Cell Urine 0-5 /hpf (0-5); WBC Urine 0-5 /hpf (0-5)
[2024-12-21 21:40] LABS: Amphetamines Screen Urine Negative (Negative); Barbiturates Screen Urine Negative (Negative); Benzodiazepines Screen Urine Negative (Negative); Cocaine Screen Urine Negative (Negative); Opiate Screen Urine Negative (Negative); PCP Screen Urine Negative (Negative); THC Screen Urine Negative (Negative)
--- NOTE | 2024-12-21 21:41 | PM.OBTRLD ---
OB L&D Triage Visit Information: Date of evaluation: 12/21/24 Comments/Additional reason(s) for visit: 19-year-old female G2, P1 at 29.6 weeks gestation with NATI 03/02/2025 seen in triage room 15 with complaints of chest pain, heart pounding, shortness of breath, lightheadedness x 4 hours. Patient denies headache, coughing or any vaginal bleeding. Onset of the symptoms was before dinner with no strenuous activity before its onset. Patient denies anyone at home being ill, she denies known exposure to COVID, or influenza. Patient denies history of smoking or vaping or marijuana use. Patient admits to good movement, denies any abdominal trauma or vaginal bleeding. Patient is resting well in bed, but through exam states the left side of her chest under her breast is still uncomfortable. No noticeable use of accessory muscles for breathing. Discussed workup with patient to rule out pneumonia, COVID and influenza, and DVT. Patient verbalizes understanding. EFM?category 1, audible movement, VSS, afebrile, pulse ox 97 to 100% Heart?regular rate and rhythm no murmur Lungs?clear to auscultation Extremities?no edema, no calf tenderness, no edema. After observation and waiting on lab results, patient states chest pain has resolved as well as shortness of breath. Reviewed lab results as essentially normal and chest x-ray unremarkable. Will get EKG COVID results still pending. Discussed plan with patient that if COVID, influenza and EKG are all negative we will discharge her to home and have her follow-up in the clinic in the next 1 to 2 days if she continues to feel well but if shortness of breath and chest pain returns and intensifies patient is to return to the emergency room. Patient agrees. Evaluation: Baseline heart rate: 150 Variability: Moderate (11-25) monitor accelerations: Present 15x15 monitor decelerations: None Laboratory results: Laboratory Tests 12/21/24 21:22 WBC 10.12 RBC 4.31 Hgb 12.10 Hct 37.5 MCV 87.0 MCH 28.1 MCHC 32.3 RDW 13.6 Plt Count 252 MPV 10.5 H Neut % (Auto) 68.8 Lymph % (Auto) 22.0 Mineral % (Auto) 6.6 Eos % (Auto) 1.9 Baso % (Auto) 0.3 Neut # (Auto) 6.96 Lymph # (Auto) 2.2 Mineral # (Auto) 0.7 Eos # (Auto) 0.2 Baso # (Auto) 0.0 Nucleated RBC % (a uto) 0 Nucleated RBCs # 0.0 Urine Color Yellow Urine Appearance Clear Urine pH 7.0 Ur Specific Gravit y 1.009 Urine Protein Negative Urine Glucose (UA) Negative Urine Ketones Negative Urine Blood Negative Urine Nitrate Negative Urine Bilirubin Negative Urine Urobilinogen 0.2 Ur Leukocyte Aby ase Negative Urine RBC 0-2 Urine WBC 0-5 Ur Squamous Epith Cells 0-5 Amorphous Sediment Not Reportable Urine Bacteria None seen Hyaline Casts 0-4 H Urine Opiates Scre en Negative Ur Barbiturates Sc reen Negative Ur Phencyclidine S crn Negative Ur Amphetamines Sc reen Negative U Benzodiazepines Scrn Negative Urine Cocaine Scre en Negative U Marijuana (THC) Screen Negative Vital signs: Vital Signs - 24 hr 12/21/24 20:40 12/21/24 20:41 12/21/24 20:46 Temperature 96.8 F L Pulse Rate 90 100 Blood Pressure 122/72 Pulse Oximetry 99 97 12/21/24 20:46 12/21/24 20:51 12/21/24 20:51 Temperature Pulse Rate 95 96 Blood Pressure Pulse Oximetry 97 12/21/24 20:56 12/21/24 20:56 12/21/24 20:56 Temperature Pulse Rate 103 H Blood Pressure 114/63 Pulse Oximetry 97 12/21/24 21:01 12/21/24 21:01 12/21/24 21:06 Temperature Pulse Rate 91 Blood Pressure Pulse Oximetry 97 97 12/21/24 21:06 12/21/24 21:10 12/21/24 21:10 Temperature Pulse Rate 93 95 Blood Pressure 110/56 Pulse Oximetry 12/21/24 21:11 12/21/24 21:11 12/21/24 21:16 Temperature Pulse Rate 86 Blood Pressure Pulse Oximetry 97 98 12/21/24 21:16 12/21/24 21:21 12/21/24 21:21 Temperature Pulse Rate 90 90 Blood Pressure Pulse Oximetry 97 12/21/24 21:25 12/21/24 21:25 12/21/24 21:26 Temperature Pulse Rate 80 Blood Pressure 101/55 Pulse Oximetry 99 12/21/24 21:26 12/21/24 21:31 12/21/24 21:31 Temperature Pulse Rate 91 89 Blood Pressure Pulse Oximetry 100 12/21/24 21:36 12/21/24 21:36 Temperature Pulse Rate 85 Blood Pressure Pulse Oximetry 99 Care NATI Calculator Estimated Delivery Date Method Current WG Current Estimate 03/03/25 Ultrasound #1 29w 5d Expected Delivery Route/Plan Vaginal Specific Issues/Plans SUPERVISION OF NAUSEA AND VOMITING IN : taking zofran 4 mg as needed <del>CONSTIPATION:</del> <del>discussed</del> <del>using</del> <del>zofran</del> <del>only</del> <del>as</del> <del>needed</del> <del>to</del> <del>help</del> <del>reduce</del> <del>constipation,</del> <del>milk</del> <del>of</del> <del>mag</del> <del>and</del> <del>colace</del> <del>sent</del> <del>to</del> <del>pharmacy,</del> <del>discussed</del> <del>increasing</del> <del>fluid</del> <del>and</del> <del>fiber</del> <del>intake</del> <del>LEG</del> <del>CRAMPS:</del> <del>was</del> <del>seen</del> <del>in</del> <del>ED</del> <del>on</del> <del>08/08/24</del> <del>for</del> <del>severe</del> <del>leg</del> <del>cramp</del> <del>in</del> <del>right</del> <del>leg</del> <del>to</del> <del>rule</del> <del>out</del> <del>DVT,</del> <del>venous</del> <del>duplex</del> <del>was</del> <del>negative.</del> <del>doing</del> <del>much</del> <del>better</del> <del>now.</del> <del>Discussed</del> <del>fluid</del> <del>intake</del> <del>and</del> <del>use</del> <del>of</del> <del>magnesium</del> <del>or</del> <del>magnesium</del> <del>topicals</del> <del>for</del> <del>cramping.</del> KIDNEY STONES: ER visits x2 this for pain with kidney stones, has not passed any stones to date. Discussed pain management strategies. No stones seen on most recent renal ultrasound on 10/22/24 but mild hydronephrosis was seen on the right side. INSOMNIA: discussed sleep hygiene and safe sleep aides ACID REFLUX: discussed use of pepcid and tums Final Diagnosis Final Diagnosis (1) 29 to 30 weeks gestation of : Status: Acute (2) Shortness of breath during : Plan: 1.. Will get CBC, chemistry profile, D-dimer, chest x-ray, UDS, UA. COVID?influenza Status: Acute Code(s): O99.891 - Other specified diseases and conditions complicating ; R06.02 - Shortness of breath (3) Dyspnea: Plan: O2 sat?97 to 100% Status: Acute Code(s): R06.00 - Dyspnea, unspecified Other Information/Follow up Will discharge patient home after all labs resulted. Patient to follow-up in the clinic in the next 1 to 2 days. Patient to return to the emergency room if symptoms return or intensify. Encourage patient to start ASA 81 mg p.o. daily. Coding Level of Care Code Acute Code for Chg Fwd Diagnoses 29 to 30 weeks gestation of Shortness of breath during O99.891; R06.02 Dyspnea R06.00
[2024-12-21 21:53] LABS: Alanine Aminotransferase 13 U/L (0-33); Albumin Level 3.6 g/dL (3.5-5.2); Alkaline Phosphatase 115 U/L (35-105); Anion Gap 17.9 (5-19); Aspartate Amino Transferase 21 U/L (0-32); Blood Urea Nitrogen 8 mg/dL (6-20); Carbon Dioxide 21 mmol/L (22-29); Chloride 105 mmol/L (98-107); Globulin 3.3 g/dL (1.3-4.6); Glomerular Filtration Rate 201.5 mL/min (90-130); Glucose 130 mg/dL (65-115); Osmolality Calculated 290 mOsm/kg (285-295); Potassium 3.9 mmol/L (3.5-5.1); Sodium 140 mmol/L (136-145); Total Bilirubin 0.2 mg/dL (0.15-1.2); Total Protein 6.9 g/dL (6.6-8.7)
[2024-12-21 22:02] LABS: D Dimer 0.69 ug/mLFEU (0-0.59)
--- NOTE | 2024-12-21 22:43 | ECG_ITS ---
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
[2024-12-21 23:02] LABS: Influenza A NEGATIVE (Negative); Influenza B NEGATIVE (Negative); Respiratory Syncytial Virus Ce NEGATIVE (Negative); SARS-CoV-2 PCR NEGATIVE (Negative)
== END 2024-12-21 23:14 | disposition home or self-care (01) ==
LOC: OPOB 20:28 → OBGYN 20:29
PROVIDERS: PCP Family Medicine; Visit Provider Obstetrics & Gynecology
DX: O26.899 Other specified pregnancy related conditions, unspecified trimester (principal); Z3A.00 Weeks of gestation of pregnancy not specified; R07.9 Chest pain, unspecified; R42 Dizziness and giddiness
CPT/HCPCS: 59025; 71045; 80053; 80306; 81001; 85025; 85378; 87637; 93005; 99211

== ENCOUNTER → 2024-12-24 08:39 | Outpatient (BNVA) | payer MEDICAID, SELFPAY | PROVIDERS: PCP Family Medicine; Visit Provider Obstetrics & Gynecology | DX: Z34.90 Encounter for supervision of normal pregnancy, unspecified, unspecified trimester (principal) | CPT/HCPCS: 84315 ==

== ENCOUNTER 2025-01-07 09:35 | Outpatient (CLI) | payer MEDICAID, SELFPAY ==
[2025-01-07] VITALS (8 sets, daily range): BP systolic 103–122; BP diastolic 53–63; PULSE 78–100; RESP 17; TEMP 36.1; BMI 28.4
== END 2025-01-07 11:15 | disposition home or self-care (01) ==
LOC: OPOB 09:38 → OBGYN 09:38
PROVIDERS: PCP Family Medicine; Visit Provider Obstetrics & Gynecology
DX: O36.8190 Decreased fetal movements, unspecified trimester, not applicable or unspecified (principal); Z3A.00 Weeks of gestation of pregnancy not specified
CPT/HCPCS: 59025; 84315; 99211

== ENCOUNTER → 2025-01-21 07:57 | Outpatient (BNVA) | payer MEDICAID, SELFPAY | PROVIDERS: PCP Family Medicine; Visit Provider Nurse Practitioner Women's Health | DX: Z34.00 Encounter for supervision of normal first pregnancy, unspecified trimester (principal); Z36.9 Encounter for antenatal screening, unspecified | CPT/HCPCS: 76816; 81000 ==

== ENCOUNTER → 2025-02-04 08:56 | Outpatient (BNVA) | payer MEDICAID, SELFPAY | PROVIDERS: PCP Family Medicine; Visit Provider Obstetrics & Gynecology | DX: Z34.90 Encounter for supervision of normal pregnancy, unspecified, unspecified trimester (principal) | CPT/HCPCS: 84315; 87081 ==

== ENCOUNTER 2025-02-06 22:30 | Outpatient (CLI) | payer MEDICAID, SELFPAY ==
[2025-02-06 22:44] VITALS: BMI 28.8
[2025-02-06 22:45] VITALS: BP 114/56; PULSE 78; RESP 16
[2025-02-06 23:00] VITALS: BP 110/54; PULSE 71; RESP 18
[2025-02-06 23:15] VITALS: BP 110/63; PULSE 85; RESP 16
--- NOTE | 2025-02-06 23:28 | USR_ITS ---
PROCEDURE INFORMATION: Exam: US Duplex Left Lower Extremity Veins, Limited Exam date and time: 02/06/2025 11:56 PM Age: 19 years old Clinical indication: Pain; Leg, lower; Left; Additional info: Leg pain TECHNIQUE: Imaging protocol: Real-time duplex ultrasound of the left extremity with 2-D bueno scale, color Doppler flow and spectral waveform analysis including responses to compression and other maneuvers (when performed) with image documentation. Limited exam focused on the left lower extremity veins. COMPARISON: [place] [id number] 01/21/2025 8:04 AM FINDINGS: Left deep veins: All imaged left lower extremity deep veins demonstrate normal flow, compressibility, and/or augmentation without evidence of deep venous thrombosis. Superficial veins: Greater saphenous vein at the saphenofemoral junction is patent without thrombus. Soft tissues: Unremarkable. US/[place] [id number] IMPRESSION: No evidence of deep vein thrombosis.
[2025-02-06 23:30] VITALS: BP 110/61; PULSE 82; RESP 16
[2025-02-06 23:45] VITALS: BP 109/60; PULSE 80
[2025-02-07] VITALS: BP 110/57; PULSE 76
[2025-02-07 00:15] VITALS: BP 103/52; PULSE 74
[2025-02-07 00:30] VITALS: BP 92/54; PULSE 59
== END 2025-02-07 00:43 | disposition home or self-care (01) ==
LOC: OPOB 22:43 → OBGYN 02-07 00:37
PROVIDERS: PCP Family Medicine; Visit Provider Obstetrics & Gynecology
DX: O26.899 Other specified pregnancy related conditions, unspecified trimester (principal); Z3A.00 Weeks of gestation of pregnancy not specified; M79.662 Pain in left lower leg
CPT/HCPCS: 59025; 93971; 99211

== ENCOUNTER → 2025-02-11 09:15 | Outpatient (BNVA) | payer MEDICAID, SELFPAY | PROVIDERS: PCP Family Medicine; Visit Provider Obstetrics & Gynecology | DX: Z34.90 Encounter for supervision of normal pregnancy, unspecified, unspecified trimester (principal) | CPT/HCPCS: 84315 ==

== ENCOUNTER → 2025-02-25 09:01 | Outpatient (BNVA) | payer MEDICAID, SELFPAY | PROVIDERS: PCP Family Medicine; Visit Provider Obstetrics & Gynecology | DX: Z34.83 Encounter for supervision of other normal pregnancy, third trimester (principal) | CPT/HCPCS: 84315 ==

== ENCOUNTER 2025-02-27 08:08 | Inpatient (IN) | payer MEDICAID, SELFPAY ==
--- OUTSIDE RECORDS SUMMARY | 2021-10-17 09:27 | XMS_ITS | Continuity of Care Document ---
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, [place], [address], [place] tel:[phone] [facility] No Information Oct- 2 No Information [facility] [address], [address], [place] tel:[phone] [facility] Syncope 1 No Information Referring Provider: MAINE ORDOÑEZ [address], [place], [address]. tel:[phone] EST PT, MODERATE VISIT [facility] [address], [address], [place] tel:[phone] [facility] Chest Pain - Chest Wall May- 1 No Information Referring Provider: MAINE ORDOÑEZ [address], [place], [address]. tel:[phone] [facility] [address], [address], [place] tel:[phone] [facility] Palpitations 0 No Information Referring Provider: YLUIA CHAVIS [address], [place], [address]. tel:[phone] INTERMEDIATE OUTPT CONSULT [facility] [address], [address], [place] tel:[phone] [facility] Palpitations Syncope 0 No Information Referring Provider: MAURO COLINDRES A, [address] [place], [address]. tel:[phone] COMPREHENSIVE OUTPT CONSULT [facility], [address], [address], [place] tel:[phone] [facility] Tachycardia, NonspecificS hortness of breath 5 No Information Referring Provider: MAINE ORDOÑEZ [address], [place], [address]. tel:[phone] [facility], [address] [place], [address], [place] tel:[phone] [facility] No Information No Information Referring Provider: YULIA CHAVIS [address], [place], [address]. tel:[phone] Family History Family Member Type Diagnosis Age [...] dilated Payers Payer name Insurance type Covered democrat ID Authoriza tion(s) HEALTHY BLUE OF [facility] [id number] Social History Type Description Quantity Date Captured Comments Sex Female Smoking Status No Information Chief Complaint And Reason For Visit No Information History Of Present Illness Encounter Date Complaint History Of Prese nt Illness No Information Instructions Date Instruction Additional Infor mation No Information Assessments Type Assessment Date No Information
[2025-02-26 19:32] VITALS: BP 124/79; PULSE 121
[2025-02-26] MEDS: ondansetron 2 mg/ML SDV 2 mL 4 MG IVP (20:21)
[2025-02-26 22:07] VITALS: BP 121/78; PULSE 97
[2025-02-26 22:22] VITALS: BP 125/69; PULSE 88
[2025-02-26 22:37] VITALS: BP 118/58; PULSE 88
[2025-02-26 22:53] VITALS: BP 115/59; PULSE 86
[2025-02-26 23:44] VITALS: TEMP 36.8
[2025-02-26 23:58] LABS: Hematocrit 38.7 % (36-47); Hemoglobin 12.60 g/dL (11.27-16.99); Mean Corpuscular HGB Conc 32.6 g/dL (30-55); Mean Corpuscular Hemoglobin 27.4 pg (27-33); Mean Corpuscular Volume 84.1 fl (85-98); Nucleated Red Blood Cells % 0 %; Platelet Count 240 10^3/cmm (157-399); Red Blood Count 4.60 10^6/uL (3.85-5.65); White Blood Count 9.57 10^3/uL (3.29-11.43)
[2025-02-27] VITALS (72 sets, daily range): BP systolic 93–158; BP diastolic 50–77; PULSE 55–130; RESP 16–18; TEMP 36.6–36.7; O2SAT 96–100
[2025-02-27] MEDS: ROPivacaine premix 200 MG/100 ML PREMIX 13 MG EPIDURAL (10:57)
--- NOTE | 2025-02-27 10:58 | P.ANESASSM_ITS ---
Pre-Anesthetic Assessment Height/Weight: Height 1.65 m Weight 80.286 kg Temp Pulse BP Pulse Ox O2 Del Method 98.2 F 100 122/64 99 Room Air 02/26/25 23:44 02/27/25 10:53 02/27/25 10:53 02/27/25 10:51 02/26/25 23:46 Preop Diagnosis: IUP Labor Epidural Familial anesthetic complications: None Was Beta Arlene taken within 24 hours: N/A Was Clonidine taken within 24 hours: N/A Last intake: clears current meal > 8 hours Social No alcohol and No tobacco Exam alert, oriented x 3 and clear to auscultation bilaterally Airway Submandibular: within normal limits Cervical ROM: within normal limits Mallampati: Class II Dentition: full History/ROS No significant history except as noted Pulmonary None reported CV/HEM None reported None reported Hepatic None reported GI Gastroesophageal Reflux Disease Metabolic None reported Musc/skel None reported Neuropsych None reported Anesthetic Plan ASA status: 2 Anesthesia: Regional (specify below) Other: Labor Epidural Medications/Allergies Home Medications ?Medication ?Instructions ?Recorded ?Confirmed ?Last Taken ?Type cholecalciferol (vitamin D3) 50 50 mcg PO DAILY #30 ca ps 10/21/24 02/25/25 Unknown Rx mcg (2,000 unit) capsule ferrous sulfate 325 mg (65 mg mg PO 01/07/25 02/25/25 01/06/25 18:00 History iron) capsule,extended release [id number]-mhbjvpecdhdre-elbgpzxm 1 cap PO Q8H PRN terri n #30 caps 01/21/25 02/25/25 Unknown Rx 50 mg-300 mg-40 mg capsule (Fioricet) Allergies Allergy/AdvReac Type Severity Reaction Status Date / Time amoxicillin (From Augmentin) Allergy ALGY-Anaphy Verified 02/25/25 08:07 laxis clavulanic acid (From Allergy ALGY-Anaphy Verified 02/25/25 08:07 Augmentin) laxis fentanyl Allergy ALGY-Difficulty Verified 02/25/25 08:07 Breathing kiwi Allergy ALGY-Difficulty Verified 02/25/25 08:07 Breathing metoclopramide (From Reglan) Allergy ALGY-Difficulty Verified 02/25/25 08:07 Breathing promethazine (From Phenergan) Allergy ADR-Halluci Verified 02/25/25 08:07 nating shrimp Allergy ALGY-Difficulty Verified 02/25/25 08:07 Breathing Current Medications Generic Name Dose Route Start Last Admin Trade Name Freq PRN Reason Stop Dose Admin Acetaminophen 650 mg 02/26/25 23:42 02/27/25 06:39 Acetaminophen 325 Mg Tablet PO 650 mg Q6H PRN Administration Mild pain or temp > 100.4 Clindamycin HCl/Dextrose 900 mg in 50 mls @ 100 mls/hr 02/26/25 23:15 02/27/25 09:38 Cleocin IV Infused Q8H DIANE Infusion Protocol Dextrose/Lactated Ringer's 1,000 mls @ 125 mls/hr 02/26/25 23:45 02/27/25 09:00 Dextrose 5%-Lactated Ringers IV 125 mls/hr .Q8H DIANE Infusion Lactated Ringer's 1,000 mls @ 999 mls/hr 02/27/25 09:35 02/27/25 10:57 Lactated Ringers IV 999 mls/hr .Q1H1M PRN Administration See label comments Ropivacaine 200 mg in 100 mls @ 10 mls/hr 02/27/25 09:45 02/27/25 10:57 Naropin Premix EPIDURAL 13 mls/hr .Q10H DIANE Administration PFSH Anesthesia Medical History (Updated 02/26/25 @ 00:23 by Aubrey Ronquillo MD) Mastitis Normal COVID No pertinent past medical history neghx: htn,dm,thyroid,dvt/pe PCP: Dr. Morillo Anxiety Surgical History Hx laparoscopic cholecystectomy (~2020) Hx of tonsillectomy (~2006) Family History Family/Other Breast cancer Maternal great grandmother--dx age unknown Colon cancer Paternal Great Uncle--dx age 60's Mother Heart disease Grandmother Heart disease Maternal Grandfather Hypertension Paternal Denies family history of Ovarian cancer Diabetes Hypercholesteremia Uterine cancer Thyroid disease Stroke Social History Smoking and tobacco/nicotine status: unknown if used tobacco/nicotine Female Reproductive History : 2 Data Anesthesia 02/26/25 22:30 Short CBC 02/26/25 Range/Units 22:30 WBC 9.57 (3.29-11.43) 10^3/uL Hgb 12.60 (11.27-16.99) g/dL Hct 38.7 (36-47) % MCV 84.1 L (85-98) fl Plt Count 240 (157-399) 10^3/cmm Neut % (Auto) 74.1 % Neut # (Auto) 7.09 (1.8-7.7) 10^3/uL Blood Bank 02/26/25 22:30 Blood Type A Positive Rho(D) Type Rh positive Antibody Screen Negative Anesthesia Procedures Epidural Time Out Performed: Yes Consents Signed: Procedure Consent Consent: from patient, risks and benefits reviewed and patient agrees to proceed Lumbar Level: L3-L4 Epidural position: sitting Epidural procedure: sterile prep of area, 1% lidocaine to numb the area, negative for paresthesia passed, test dose given, 1.5% xylocaine 1:200k epi, 0.2% Ropivacaine bolus ml (5), placed PCEA, no systemic response, sterile dressing applied, L.U.D. no apparent complications and 0.2% Ropiavacaine @ mls/hr (13) Additional Comments: CHEPE @ 5.5cm , third attempt (patient struggled to remain still for procedure due to intensity of labor contractions), - heme -csf. catheter threaded to 12cm with ease. Adequate analgesia achieved.
--- NOTE | 2025-02-27 11:13 | P.HP_ITS ---
Providers/Chief Complaint 2 Admitting Physician: MD Red Primary Care Provider: Eric Morillo Chief Complaint: RLQ pain, pelvic pressure, back pain History of Present Illness Lorena House is a 19 year old female [id number] 39 weeks 2 days by ultrasound. Patient arrived and was triaged in labor and delivery the night of the . States positive movements denies vaginal bleeding or leaking of fluid. States cyclic painful pelvic pain that have gradually become stronger. Patient is GBS carrier allergic to amoxicillin/anaphylaxis. Gravdia 1----> 03/07/22, Boy, [place], Vaginal, Epidural, No complications, Delivered at [facility] by Dr. Noe. Review of Systems 2 Narrative: - See HPI - Neurological: Reports headaches not re lieved by Tylenol. - Cardiovascular: Reports episodes of li ghtheadedness and dizziness, especially postprandial in stores. - Musculoskeletal: Reports leg cramps ex tending to feet, particularly troublesome despite magnesium supplementation. - Sleep: Reports insomnia with difficult y falling asleep and frequent nocturnal awakenings. Medications/Allergies Home Medications ?Medication ?Instructions ?Recorded ?Confirmed ?Last Taken ?Type cholecalciferol (vitamin D3) 50 50 mcg PO DAILY #30 ca ps 10/21/24 02/25/25 Unknown Rx mcg (2,000 unit) capsule ferrous sulfate 325 mg (65 mg mg PO 01/07/25 02/25/25 01/06/25 18:00 History iron) capsule,extended release qozggjgnwj-bhwuwaenhaigd-mdmuvlnk 1 cap PO Q8H PRN terri n #30 caps 01/21/25 02/25/25 Unknown Rx 50 mg-300 mg-40 mg capsule (Fioricet) Allergies Allergy/AdvReac Type Severity Reaction Status Date / Time amoxicillin (From Augmentin) Allergy ALGY-Anaphy Verified 02/25/25 08:07 laxis clavulanic acid (From Allergy ALGY-Anaphy Verified 02/25/25 08:07 Augmentin) laxis fentanyl Allergy ALGY-Difficulty Verified 02/25/25 08:07 Breathing kiwi Allergy ALGY-Difficulty Verified 02/25/25 08:07 Breathing metoclopramide (From Reglan) Allergy ALGY-Difficulty Verified 02/25/25 08:07 Breathing promethazine (From Phenergan) Allergy ADR-Halluci Verified 02/25/25 08:07 nating shrimp Allergy ALGY-Difficulty Verified 02/25/25 08:07 Breathing PFSH Acute 2 PFSH: Medical History (Updated 02/27/25 @ 11:43 by Jose Ortega MD) Mastitis Normal COVID No pertinent past medical history neghx: htn,dm,thyroid,dvt/pe PCP: Dr. Ilia Joshi Surgical History Hx laparoscopic cholecystectomy (~2020) Hx of tonsillectomy (~2006) Family History Family/Other Breast cancer Maternal great grandmother--dx age unknown Colon cancer Paternal Great Uncle--dx age 60's Mother Heart disease Grandmother Heart disease Maternal Grandfather Hypertension Paternal Denies family history of Ovarian cancer Diabetes Hypercholesteremia Uterine cancer Thyroid disease Stroke Social History Smoking and tobacco/nicotine status: unknown if used tobacco/nicotine Female Reproductive History: : 2 Vitals/I&O/Wt Last Vital Signs Temp 98.2 F 02/26/25 23:44 Pulse 70 02/27/25 11:11 BP 100/68 02/27/25 11:11 Pulse Ox 99 02/27/25 11:11 O2 Del Method Room Air 02/26/25 23:46 02/26/25 02/27/25 02/27/25 22:59 06:59 14:59 Intake Total 112.5 / 112.5 1049 / 1049 Balance 112.5 / 112.5 1049 / 1049 Weight last 48 hrs Weight 177 lb Physical Exam 2 Const: COMMON NORMALS: no acute distress, average body habitus, patient oriented x3, no limitations, healthy appearing, alert and well nourished G ENERAL APPEARANCE: cooperative, comfortable, well kempt and well developed Resp: COMMON NORMALS: normal respiratory effort EFFORT & INSPECTION: Yes able to speak in complete sentences GI: COMMON NORMALS: Soft to palpation and non-tender PALPATION: Yes Soft to palpation : MANUAL OB EXAM: dilated, effaced (80), station -2 and other (IM) Extremity: COMMON NORMALS: no calf tenderness Neuro: COMMON NORMALS: patient oriented x3 SENSORIUM/ORIENTATION: Yes alert, Yes oriented to person, Yes oriented to place and Yes oriented to time Psych: APPEARANCE: Yes well deep Data 02/26/25 22:30 A&P Assessment and plan 1. Pelvic pain: 2. 39 weeks gestation of : 3. Group B streptococcal carriage complicating : 4. 39 weeks gestation of : Plan: Admit to L&D expect monitoring See orders PDMP PDMP Reviewed: Not Reviewed Attestations 2 Medical Necessity Statement*: Patient admitted with marked postural hypotention due to acute blood loss. Observation not expected to be two nights. Coding Level of Care Code Acute Code for Chg Fwd Diagnoses Pelvic pain R10.2 39 weeks gestation of Z3A.39 Weeks of gestation: 39 weeks Group B streptococcal carriage complicating O99.820
[2025-02-27] MEDS: ondansetron 2 mg/ML SDV 2 mL 4 MG IVP (13:08)
[2025-02-27] MEDS: oxytocin 30 UNIT/500 ML BAG 600 UNIT IV (15:27)
--- NOTE | 2025-02-27 15:46 | P.PCNOB_ITS ---
Delivery Note: Date of delivery: February 27, 2025 Pre-delivery diagnoses: Term in labor Post-delivery diagnoses: Term delivered Procedure: Op report anesthesia: Epidural Delivering Physician: ROBERTO Estimated blood loss (mL): 300 Findings: small right upper 3cm laceration of introitus sutured with 3'0 vicryl stitches x2. Post Delivery Diagnoses: 39 weeks gestation of : Qualifiers: Weeks of gestation: 39 weeks Pre-Delivery Course: Normal labor progression without augmentation. Delivery: BB 7'15lbs Placenta within 30 min, complete 9/9 EBL ~300ml Post-Delivery Status: without complications History History History 2 Term 1 0 Miscarriages/Ectopic 0 Living Children 1 Past Pregnancies Del. Date GA/Weeks Outcome Route Wt Inf Gender Labor Lgth Comp. Anesth esia Location 03/07/22 40 live - full term Vaginal 7 lb 8 oz Male [facility] 02/27/25 39 live - full term Vaginal 7 lb 15 oz Male A&P Assessment and plan 1. Normal vaginal delivery: 2. 39 weeks gestation of : 3. Hx of penicillin allergy: Plan: A/P Term spontaneous vaginal delivery of abdi BB without complications. Mom and baby bonding in room. Encourage breast feeding if able Notify if increased bleeding DC clindamycin Pain management with NSAIDS see orders PDMP PDMP Reviewed: Not Reviewed Coding Level of Care Code Acute Code for Chg Fwd Diagnoses Normal vaginal delivery O80 39 weeks gestation of Z3A.39 Weeks of gestation: 39 weeks Hx of penicillin allergy Z88.0
[2025-02-27] MEDS: benzocaine-menthol 78 gm Canister 1 SPRAY TOPICAL (17:58)
[2025-02-28 01:30] VITALS: BP 112/68; PULSE 71; TEMP 36.8
[2025-02-28 04:50] LABS: Hematocrit 31.1 % (36-47); Hemoglobin 10.10 g/dL (11.27-16.99); Mean Corpuscular HGB Conc 32.5 g/dL (30-55); Mean Corpuscular Hemoglobin 27.3 pg (27-33); Mean Corpuscular Volume 84.1 fl (85-98); Platelet Count 185 10^3/cmm (157-399); Red Blood Count 3.70 10^6/uL (3.85-5.65); White Blood Count 10.61 10^3/uL (3.29-11.43)
[2025-02-28 05:32] VITALS: BP 99/60; PULSE 79; TEMP 36.6; TEMP 36.7
--- OUTSIDE RECORDS SUMMARY | 2025-02-28 05:43 | XMS_ITS | Encounter Summary ---
Author Organization [facility] Address [address] [place] [address] Care Team Providers Care Neurosurgery Physician Name Role Phone Eric Morillo MD Primary Care Provider [phone] Encounter Details Date Type Department Care Team (Latest Contact Info) Description 03/13/2005 Outpatient Historical [facility] Family Medicine [place] [address] [phone] Skyler Pappas NP NO ADDRESS ON FILE VIRAL EXANTHEMATA NOS (Primary Dx); ACUTE TONSILLITIS Social History Tobacco Use Types Packs/Day Years Used Date Smoking Tobacco: Never Assessed Comments Unknown Sex and Gender Information Value Date Recorded Sex Assigned at Not on file 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
--- OUTSIDE RECORDS SUMMARY | 2025-02-28 05:43 | XMS_ITS | Encounter Summary ---
Author Organization [facility] Address [address] [place] [address] Care Team Providers Care Stage Setting Painter Apprentice Name Role Phone Eric Morillo MD Primary Care Provider [phone] Encounter Details Date Type Department Care Team (Latest Contact Info) Description 11/23/2005 Outpatient Historical [facility] Family Medicine- [place] [address] [place] [phone] Skyler Pappas NP NO ADDRESS ON FILE Impetigo (Primary Dx) Social History Tobacco Use Types Packs/Day Years Used Date Smoking Tobacco: Never Assessed Comments Unknown Sex and Gender Information Value Date Recorded Sex Assigned at Not on file 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
--- OUTSIDE RECORDS SUMMARY | 2025-02-28 05:43 | XMS_ITS | Encounter Summary ---
Author Organization [facility] Address [address] [place] [address] Care Team Providers Care Machine Etcher Name Role Phone Eric Morillo MD Primary Care Provider [phone] Encounter Details Date Type Department Care Team (Latest Contact Info) Description 07/03/2006 Outpatient Historical [facility] Medicine [address] [phone] Nga Peck MD NO ADDRESS ON FILE Acute Upper Respiratory Infections of Unspecified Site (Primary Dx); Other and Unspecified Noninfectious Gastroenteritis and Colitis Social History Tobacco Use Types Packs/Day Years Used Date Smoking Tobacco: Never Assessed Comments Unknown Sex and Gender Information Value Date Recorded Sex Assigned at Not on file 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 Gender Identity Not on file Sexual Orientation Not on file documented as of this encounter Plan of Treatment Not on file documented as of this encounter Visit Diagnoses Diagnosis Acute upper respiratory infections of unspecified site- Primary Other and unspecified noninfectious gastroenteritis and colitis(558.9) Other and unspecified noninfectious gastroenteritis and colitis documented in this encounter Care Teams Machine Etcher Relationship Specialty Start Date End Date Eric Morillo MD [address] [phone] PCP - General Family Practice 09/04/18 documented as of this encounter
--- OUTSIDE RECORDS SUMMARY | 2025-02-28 05:43 | XMS_ITS | Encounter Summary ---
Author Organization [facility] Address [address] [place] [address] Care Team Providers Care Silverware Supervisor Name Role Phone Eric Morillo MD Primary Care Provider +1 [phone] Encounter Details Date Type Department Care Team (Latest Contact Info) Description 01/03/2006 Outpatient Historical [facility] Medicine [address] [phone] Skyler Pappas NP NO ADDRESS ON FILE Unspecified Vaginitis and Vulvovaginitis (Primary Dx); Acute Sinusitis, Unspecified; Allergic Rhinitis, Cause Unspecified Social History Tobacco Use Types Packs/Day Years Used Date Smoking Tobacco: Never Assessed Comments Unknown Sex and Gender Information Value Date Recorded Sex Assigned at Not on file 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
--- OUTSIDE RECORDS SUMMARY | 2025-02-28 05:43 | XMS_ITS | Encounter Summary ---
Author Organization [facility] Address [address] [place] [facility] [place] [address] Care Team Providers Care Teleprinter Name Role Phone Eric Morillo MD Primary Care Provider [phone] [phone] Encounter Details Date Type Department Care Team (Latest Contact Info) Description 11/09/2005 Outpatient Historical [facility] Family Medicine- [place] [place] [address] Nga Peck MD NO ADDRESS ON FILE Candidiasis of Skin and Nails (Primary Dx) Social History Tobacco Use Types Packs/Day Years Used Date Smoking Tobacco: Never Assessed Comments Unknown Sex and Gender Information Value Date Recorded Sex Assigned at Not on file 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
--- OUTSIDE RECORDS SUMMARY | 2025-02-28 05:43 | XMS_ITS | Encounter Summary ---
Author Organization [facility] Address [address] [facility] [place] [address] Care Team Providers Care Supervisor Irrigation Name Role Phone Eric Morillo MD Primary Care Provider +1 [phone] Encounter Details Date Type Department Care Team (Latest Contact Info) Description 12/26/2005 Outpatient Historical [facility] Family Medicine- [address] [place] [address] Oswaldo Talamantes, NO ADDRESS ON FILE Acute Upper Respiratory Infections of Unspecified Site (Primary Dx) Social History Tobacco Use Types Packs/Day Years Used Date Smoking Tobacco: Never Assessed Comments Unknown Sex and Gender Information Value Date Recorded Sex Assigned at Not on file 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
--- OUTSIDE RECORDS SUMMARY | 2025-02-28 05:43 | XMS_ITS | Encounter Summary ---
Author Organization [facility] Address [address] [place] [address] Care Team Providers Care Pattern Setter Name Role Phone Eric Morillo MD Primary Care Provider [phone] [phone] Encounter Details Date Type Department Care Team (Latest Contact Info) Description 10/30/2005 Outpatient Historical [facility] Family Medicine [place] [address] [phone] Skyler Pappas NP NO ADDRESS ON FILE Contact Dermatitis and Other Eczema, due to Unspecified Cause (Primary Dx); Candidiasis of Unspecified Site Social History Tobacco Use Types Packs/Day Years Used Date Smoking Tobacco: Never Assessed Comments Unknown Sex and Gender Information Value Date Recorded Sex Assigned at Not on file 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
--- OUTSIDE RECORDS SUMMARY | 2025-02-28 05:43 | XMS_ITS | Encounter Summary ---
Author Organization [facility] Address [address] [place] [address] Care Team Providers Care Coat Joiner Lockstitch Name Role Phone Eric Morillo MD Primary Care Provider +1 [phone] Encounter Details Date Type Department Care Team (Latest Contact Info) Description 12/11/2004 Outpatient Historical [facility] Family Medicine- [address] [place] [phone] Nga Peck MD NO ADDRESS ON FILE ACUTE URI NOS (Primary Dx); OTITIS MEDIA NOS Social History Tobacco Use Types Packs/Day Years Used Date Smoking Tobacco: Never Assessed Comments Unknown Sex and Gender Information Value Date Recorded Sex Assigned at Not on file 

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
--- OUTSIDE RECORDS SUMMARY | 2025-02-28 05:43 | XMS_ITS | Encounter Summary ---
Author Organization [facility] Address [address] [facility] [place] [address] Care Team Providers Care Gasket Former Name Role Phone Eric Morillo MD Primary Care Provider [phone] [phone] Encounter Details Date Type Department Care Team (Latest Contact Info) Description 04/30/[address] 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
--- OUTSIDE RECORDS SUMMARY | 2025-02-28 05:44 | XMS_ITS | Encounter Summary ---
Author Organization [facility] Address [address] [place] [address] Care Team Providers Care Geographic Information Scientist Name Role Phone Eric Morillo MD Primary Care Provider +1 -[phone] Encounter Details Date Type Department Care Team (Late st Contact Info) Description 02/24/2025 External Device Data ST[facility] ABSTRACTION Provider, Abstract NO ADDRESS ON FILE Social History Tobacco Use Types Packs/Day Years Used Date Smoking Tobacco: Never Smokeless Tobacco: Never Alcohol Use Standard Drinks/Week Comments No 0 (1 standard drink = 0.6 oz pur e alcohol) Estimated Date of Delivery Comme nts Yes 03/04/2025 Sex and Gender Information Value Date Recorded Sex Assigned at Not on file Legal Sex Female 1:48 PM 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 Gender Identity Not on file Sexual Orientation Not on file documented as of this encounter Plan of Treatment Upcoming Encounters Date Type Department Care Team (Late st Contact Info) Description 06/04/2025 9:00 AM CDT Office Visit [facility] [address] [phone] Eric Morillo MD [address] [address] documented as of this encounter Visit Diagnoses Not on filedocumented in this encounter Care Teams Geographic Information Scientist Relationship Specialty Start Date End Date Eric Morillo MD [address] [phone] PCP - General Family Practice 09/04/18 documented as of this encounter
--- OUTSIDE RECORDS SUMMARY | 2025-02-28 05:44 | XMS_ITS | Encounter Summary ---
Author Organization [facility] Address [address] [place] [address] Care Team Providers Care Car Stereo Installer Name Role Phone Eric Morillo MD Primary Care Provider +1 -[phone] Encounter Details Date Type Department Care Team (Latest Contact Info) Description 12/13/2006 Outpatient Historical [facility] Family Medicine [place] [address] [phone] Nga Peck MD NO ADDRESS ON FILE Acute Upper Respiratory Infections of Unspecified Site (Primary Dx); Acute Bronchitis Social History Tobacco Use Types Packs/Day Years Used Date Smoking Tobacco: Never Assessed Comments Unknown Sex and Gender Information Value Date Recorded Sex Assigned at Not on file 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
--- OUTSIDE RECORDS SUMMARY | 2025-02-28 05:44 | XMS_ITS | Encounter Summary ---
Author Organization [facility] Address [address] [place] [address] Care Team Providers Care 3D Designer Name Role Phone Eric Morillo MD Primary Care Provider +1 [phone] Encounter Details Date Type Department Care Team (Latest Contact Info) Description 04/22/2007 Outpatient Historical [facility] Family Medicine [place] [address] [phone] Meghan Meade, ENTERPRISE SYSTEMS ARCHITECT [address] [place] [address] Acute Pharyngitis (Primary Dx) Social History Tobacco Use Types Packs/Day Years Used Date Smoking Tobacco: Never Assessed Comments Unknown Sex and Gender Information Value Date Recorded Sex Assigned at Not on file 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
--- OUTSIDE RECORDS SUMMARY | 2025-02-28 05:44 | XMS_ITS | Encounter Summary ---
Author Organization [facility] Address [address] [place] [address] Care Team Providers Care Awning Maker Name Role Phone Eric Morillo MD Primary Care Provider +1 [phone] Encounter Details Date Type Department Care Team (Latest Contact Info) Description 08/08/2006 Outpatient [facility] Family Medicine [address] [phone] Skyler Pappas NP NO ADDRESS ON FILE Unspecified Otitis Media (Primary Dx); Acute Tonsillitis Social History Tobacco Use Types Packs/Day Years Used Date Smoking Tobacco: Never Assessed Comments Unknown Sex and Gender Information Value Date Recorded Sex Assigned at Not on file 

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
--- OUTSIDE RECORDS SUMMARY | 2025-02-28 05:44 | XMS_ITS | Clinical Summary ---
Author Organization [facility] Address [address] [place] [address] Care Team Providers Care Salvage Diver Name Role Phone Eric Morillo MD Primary Care Provider [phone] [phone] Allergies Active Allergy Reactions Criticality Noted Date Comments Amoxicillin-Pot Clavulanate Anaphylaxis High 08/26/2019 Clavulanic Acid Anaphylaxis High 06/25/2023 Fentanyl Nausea and Vomiting,Dizziness,Hea dache Medium 07/30/2021 Kiwi Other (See Comments) 09/20/2014 Lips puffy and lips bleeding Metoclopramide Hcl Shortness of Breath/Wheezing,Confus ion,Dizziness High 07/30/2021 Promethazine Hallucination Low 06/25/2023 Shellfish Containing Products Anaphylaxis High 04/09/2019 Medications MULTIVITAMIN ORAL Take by mouth. Active cetirizine (ZyrTEC) 10 mg tabletIndicatio ns:Urticaria Take 1 Tablet (10 mg) by mouth 2 times daily. Take for 2 weeks, if hives resolve okay to stop, if hives return then resume 60 Tablet 2 06/04/2024 Active famotidine (PEPCID) 40 mg tabletIndicatio ns:Urticaria Take 1 Tablet (40 mg) by mouth 2 times daily. Take for 2 weeks, if hives resolve okay to stop, if hives return then resume 60 Tablet 2 06/04/2024 Active Active Problems Problem Noted Date Diagnosed Date Scoliosis of lumbar spine 06/04/2024 Chronic bilateral low back pain with bilateral s ciatica 06/04/2024 JOHANNA (generalized anxiety disorder) 05/10/2023 Orthostatic hypotension 04/06/2022 Estimated Date of Delivery Comme nts Yes 03/04/2025 Resolved Problems Problem Noted Date Diagnosed Date Resolved Date Positive colorectal cancer s creening using Cologuard test 04/11/2022 04/11/2022 Vomiting or nausea of 07/30/2021 04/11/2022 Panic anxiety syndrome 05/15/202105/29 RLQ abdominal pain 01/02/2021 Cough 08/15/2017 04/11/2022 Hypertrophy of adenoids alone 08/15/2017 04/11/2022 Dysphagia, pharyngoesophageal phase 08/15/2017 04/11/2022 Lingual tonsil hypertrophy 08/15/2017 0 04/11/2022 Reading difficulty 05/29/2013 Hyperopia 05/29/2013 04/11/2022 Anisometropia 05/29/2013 04/11/2022 Refractive amblyopia 05/29/2013 022 Allergic rhinitis 05/10/2011 04/11/2022 Syncope and collapse 022 Encounters Date Type Department Care Team Description 02/24/2025 External Device Data STL ABSTRACTION Provider, Abstract 02/24/2025 External Device Data STL ABSTRACTION Provider, Abstract 02/09/2025 External Device Data STL ABSTRACTION Provider, Abstract 01/12/2025 External Device Data STL ABSTRACTION Provider, Abstract 12/01/2024 External Device Data STL ABSTRACTION Provider, Abstract 12/01/2024 External Device Data STL ABSTRACTION Provider, Abstract 12/01/2024 External Device Data STL ABSTRACTION Provider, Abstract from Last 3 Months Immunizations Immunization Administration Dates Next Due (ADACEL/BOOSTRIX)(10 YR UP) TDAP VACCINE, 0.5ML, IM 03/18/2017 (INFANRIX)(6 WKS-6 YRS) DIPT HERIA, TETANUS TOXOIDS, AND ACCELLULAR PERTUSSIS VACCINE (DTAP), 0.5 ML IM 12/01/2008,01/29/2005,04/05/2004,01/11,2003 (IPOL)(6 WKS AND UP) POLIOVI BERENICE VACCINE, INACTIVATED (IPV), 3 DOSE, SUBCUT OR IM 12/01/2008,04/05/2004,02/02/2004,11/11 (M-M-R II/PRIORIX)(12 MO UP) MEASLES, MUMPS AND RUBELLA VIRUS VACCINE, 0.5 ML IM/SUBCUT 12/01/2008,10/06/2004 (MENVEO)(1 VIAL/2 VIAL)(10-5 5 YRS/2 MOS-55 YRS) MENINGOCOCCAL ACYW OLIGOSACCHARIDE CONJUGATE VACCINE, (PF) IM 03/18/2017 (PEDVAXHIB)(2 - 71 MOS) HIB PRP-OMP VACCINE, 3 DOSE, 0.5 ML IM0] 10/06/2004,02/02/2004,2003 (VARIVAX)(12 MOS UP)VARICELL A VIRUS VACCINE (PF) 0.5 ML, SUB CUT 12/01/2008,10/06/2004 Hepatitis B Vaccine 04/05/2004,02/02/2004,2003 PREVNAR (PCV13) pneumococcal 13-valent conjugate Vaccine 01/29/2005,04/05/2004,02/02/2004,11/11 Family History Medical History Relation Name Comments Healthy Father Healthy Maternal Grandfather Breast Cancer Maternal Grandmother Trinh Amblyopia Mother Trinh Healthy Mother Trinh Heart Disease Mother Trinh Colon Cancer Other pguncle Healthy Paternal Grandfather Cataract Paternal Grandmother Healthy Paternal Grandmother Relation Name Status Comments Father Alive Maternal Grandfather Alive Maternal Grandmother Trinh Alive Mother Trinh Alive Other pguncle Alive Paternal Grandfather Alive Paternal Grandmother Alive Social History Tobacco Use Types Packs/Day Years Used Date Smoking Tobacco: Never Smokeless Tobacco: Never Tobacco Cessation:Counseling Given: No Alcohol Use Standard Drinks/Week Comments No 0 (1 standard drink = 0.6 oz pur e alcohol) Estimated Date of Delivery Comme nts Yes 03/04/2025 Sex and Gender Information Value Date Recorded Sex Assigned at Not on file Legal Sex Female 1:48 PM HUMAN RESOURCES CLERK Gender Identity Not on file Sexual Orientation Not on file Last Filed Vital Signs Vital Sign Reading Time Taken Comments Blood Pressure 116/61 10/06/2024 8:20 PM HUMAN RESOURCES CLERK Pulse 72 10/06/2024 9:38 PM HUMAN RESOURCES CLERK Temperature 36.7 C (98.1 F) 10/06/2024 8:20 PM HUMAN RESOURCES CLERK Respiratory Rate 16 10/06/2024 8:20 PM HUMAN RESOURCES CLERK Oxygen Saturation 99% 10/06/2024 8:20 PM HUMAN RESOURCES CLERK Inhaled Oxygen Concentration - - Weight 66.9 kg (147 lb 6.4 oz) 10/06/2024 8:20 P M HUMAN RESOURCES CLERK Height 165.1 cm (5' 5 ) 06/04/2024 8:35 AM CDT Body Mass Index 24.53 06/04/2024 8:35 AM CDT Plan of Treatment Upcoming Encounters Date Type Department Care Team (Late st Contact Info) Description 06/04/2025 9:00 AM CDT Office Visit [facility] Medicine [address] [phone] Eric Morillo MD [address] [phone] Health Maintenance Due Date Last Done Comments HPV VACCINES (1 - 3-dose series) 2018 CHLAMYDIA SCREENING (ANNUAL) 11-24 YEARS 01/13/2022 01/13/2021 Preventative Visit- Commercial 08/12/2024 05/29/2017 CERVICAL CANCER SCREENING 2024 HPV/Cotest (21-29) 2024 PAP SMEAR 2024 INFLUENZA VACCINE (#1) 2025 , 05/21/2024, 11/08/2023, Additional history exists DTAP/TDAP/TD VACCINES (7 - T d or Tdap) 03/18/2027 03/18/2017, 12/01/2008, 01/29/2005, Additional history exists HEPATITIS B VACCINES Completed 04/05/2004, 02/02/2004, 2003 RSV VACCINE (60+ or ) (No Doses Required) Completed Procedures Procedure Name Priority Date/Time Associated Diagnosis Comments CHLAMYDIA AND GC, PAP VIAL Routine 01/13/2021 2:58 PM CDT from Last 3 Months or Most Recently Relevant to Health Maintenance Results * CHLAMYDIA AND GC, PAP VIAL (01/13/2021 2:58 PM CDT) C TRAC RNA NOT DETECTED NOT DETECTED 01/17/2021 12:20 PM CDT [facility] [place] N.GONORRHOEAE RNA, TMA NOT DETECTED NOT DETECTED 01/17/2021 12:20 PM CDT [facility] [place] SEE NOTE 01/17/2021 12:20 PM CDT [facility] [place] Comment: The analytical performance characteristics of this assay, when used to test SurePath(TM) specimens have been determined by [facility]. The modifications have not been cleared or approved by the FDA. This assay has been validated pursuant to the CLIA regulations and is used for clinical purposes. For additional information, please refer to https://education.InvisibleCRM/faq/GOV675 (This link is being provided for information/ educational purposes only.) Test Performed at: [facility] [address] [place] [address] Merrill Wong D.O., MPH 01/13/2021 2:58 PM CDT 01/15/2021 5:56 AM CDT Angi Alatorre LOW VOLTAGE TECHNICIAN BODY FLUIDS AND STOOLS COM Fi nal Result [facility] [address] [address] [facility] V[facility] [address] [facility] [place] [address] from Last 3 Months or Most Recently Relevant to Health Maintenance Insurance RX INFOCROSSING Medicaid [facility] HE[facility] PLAN MEDICAID Advance Directives For more information, please contact: [phone] * Full Code (Latest Code Status on File) Date Activated Date Inactivated Comments 07/30/2021 11:23 PM 07/31/2021 6:17 PM Care Teams Salvage Diver Relationship Specialty Start Date End Date Eric Morillo MD [address] [phone] PCP - General Family Practice 09/04/18
--- OUTSIDE RECORDS SUMMARY | 2025-02-28 05:44 | XMS_ITS | Encounter Summary ---
Author Organization [facility] Address [address] [place] [address] Care Team Providers Care Maintenance Painter Apprentice Name Role Phone Eric Morillo MD Primary Care Provider [phone] [phone] Encounter Details Date Type Department Care Team (Latest Contact Info) Description 11/12/2006 Outpatient Historical [facility] Family Medicine [place] [address] [phone] Skyler Pappas NP NO ADDRESS ON FILE Carbuncle and Furuncle of Unspecified Site (Primary Dx); Contact Dermatitis and Other Eczema, due to Unspecified Cause Social History Tobacco Use Types Packs/Day Years Used Date Smoking Tobacco: Never Assessed Comments Unknown Sex and Gender Information Value Date Recorded Sex Assigned at Not on file Legal Sex Female 3:33 AM TECHNICAL SERVICE REP Gender Identity Not on file Sexual Orientation Not on file documented as of this encounter Plan of Treatment Not on file documented as of this encounter Visit Diagnoses Diagnosis Carbuncle and furuncle of unspecified site- Primary Contact dermatitis and other eczema, due to unspecified cause documented in this encounter Care Teams Maintenance Painter Apprentice Relationship Specialty Start Date End Date Eric Morillo MD [address] [phone] PCP - General Family Practice 09/04/18 documented as of this encounter
--- OUTSIDE RECORDS SUMMARY | 2025-02-28 05:44 | XMS_ITS | Encounter Summary ---
Author Organization [facility] Address [address] [place] [address] Care Team Providers Care Sap Data Architect Name Role Phone Eric Morillo MD Primary Care Provider [phone] [phone] Encounter Details Date Type Department Care Team (Latest Contact Info) Description 04/30/2007 Outpatient Historical [facility] Family Medicine [place] [address] [phone] Meghan Meade, DENTAL INSTRUMENT MAKER [address] [place] [address] Hypertrophy Tonsils (Primary Dx) Social History Tobacco Use Types Packs/Day Years Used Date Smoking Tobacco: Never Assessed Comments Unknown Sex and Gender Information Value Date Recorded Sex Assigned at Not on file Legal Sex Female 3:33 AM PHYSICIAN CODER Gender Identity Not on file Sexual Orientation Not on file documented as of this encounter Plan of Treatment Not on file documented as of this encounter Visit Diagnoses Diagnosis Hypertrophy tonsils- Primary Hypertrophy of tonsils alone documented in this encounter Care Teams Sap Data Architect Relationship Specialty Start Date End Date Eric Morillo MD [address] [phone] PCP - General Family Practice 09/04/18 documented as of this encounter
--- OUTSIDE RECORDS SUMMARY | 2025-02-28 05:44 | XMS_ITS | Encounter Summary ---
Author Organization [facility] Address [address] [place] [address] Care Team Providers Care Line Puller Name Role Phone Eric Morillo MD Primary Care Provider [phone] [phone] Encounter Details Date Type Department Care Team [...] on file Legal Sex Female 1:48 PM WOOLEN SUITING SHRINKER Gender Identity Not on file Sexual Orientation Not on file documented as of this encounter Plan of Treatment Upcoming Encounters Date Type Department Care Team (Late st Contact Info) Description 06/04/2025 9:00 AM CDT Office Visit [facility] Medicine [place] [address] [phone] Eric Morillo MD [address] [phone] documented as of this encounter Visit Diagnoses Not on filedocumented in this encounter Care Teams Line Puller Relationship Specialty Start Date End Date Eric Morillo MD [address] [phone] PCP - General Family Practice 09/04/18 documented as of this encounter
--- NOTE | 2025-02-28 08:05 | ANE.PACU2 ---
Inpatient post-anesthesia follow up: Airway intact: Yes Vital signs: Temperature 98.3 F Pulse Rate 70 Respiratory Rate 16 Blood Pressure 98/58 Pulse Oximetry 99 Oxygen Delivery Me thod Room Air Oxygen Flow Rate Fraction of Inspir ed Oxygen Hydration adequate: Yes Nausea and vomiting: No Pain level: 1 Mental status: Baseline Epidural Start/End: Epidural Start Date: 02/27/25 Epidural Start Time: 10:26 Epidural End Date: 02/27/25 Epidural End Time: 17:46
[2025-02-28 09:30] VITALS: BP 97/56; PULSE 88; RESP 16; TEMP 36.8
--- NOTE | 2025-02-28 10:26 | P.PCNOB_ITS ---
Delivery Note: Date of delivery: February 28, 2025 Estimated blood loss (mL): 300 History History History 2 Term 2 0 Miscarriages/Ectopic 0 Living Children 2 Past Pregnancies Del. Date GA/Weeks Outcome Route Wt Inf Gender Labor Lgth Comp. Anesth esia Location 03/07/22 40 live - full term Vaginal 7 lb 8 oz Male [facility] 02/27/25 39 live - full term Vaginal 7 lb 15 oz Male A&P Assessment and plan 1. Vaginal delivery: 2. Group B streptococcal carriage complicating : 3. Hx of penicillin allergy: Plan: SUBJECTIVE: Pt doing well. Pain is well controlled with meds. Afebrile. No chills. Scant/normal lochia. Voiding. Up and walking. Eating regular diet. No N/V. Voiding spontaneously. Passing gas. No Complaints OBJECTIVE: VSS, Afebrile Heart: RRR, Lungs: CTAB Abdomen: Firm fundus, at umbilicus. Soft abd NT. Normal BS. Normal lochia Extremities: No edema,cyanosis, clubbing Hgb / HCT: 23-year-old @ 37 weeks, PPD#1 Pt doing well. Afebrile. No chills. VSS. Tolerating diet. labs: WNL without difficulty control method: To be decided at 6wk f/u Uncomplicated course. PLAN: Routine care. D/C today after 24hrs to f/u in 2 wks. Discharge Medications Ibuprofen 600mg po q6h prn pain. Max of 3 doses / 24hr. PDMP PDMP Reviewed: Not Reviewed Coding Level of Care Code Acute Code for Chg Fwd Diagnoses Vaginal delivery O80 Group B streptococcal carriage complicating O99.820 Hx of penicillin allergy Z88.0
--- NOTE | 2025-02-28 10:43 | PM.OBGYDC ---
Discharge Providers COMBER TENDER Date of Admission: 02/27/25 08:08 Date of Discharge: 02/28/25 Attending Provider at Admission: MD Red Attending Provider at Discharge: Jose Ortega MD Primary COMBER TENDER: Red Primary Care Provider: Eric Morillo Diagnoses at Discharge Discharge Diagnosis 1. Normal vaginal delivery: 2. 39 weeks gestation of : 3. Hx of penicillin allergy: Reason for Visit Reason for Visit: RLQ pain, pelvic pressure, back pain Brief History: Term in labor admitted for delivery. Hospital Course Hospital Course Uncomplicated Information Peripartum Data: Infant Delivery Method: Vaginal Episiotomy description: None complications: none Physical Exam Const: COMMON NORMALS: no acute distress and patient oriented x3 GENERAL APPEARANCE: cooperative, comfortable and well developed ORIENTATION/CONSCIOUSNESS: Yes oriented to person, Yes oriented to place and Yes oriented to time Resp: COMMON NORMALS: normal respiratory effort EFFORT & INSPECTION: Yes able to speak in complete sentences GI: COMMON NORMALS: Soft to palpation and non-tender PALPATION: Yes Soft to palpation : OTHER: Normal lochia Extremity: COMMON NORMALS: no calf tenderness Neuro: COMMON NORMALS: patient oriented x3 SENSORIUM/ORIENTATION: Yes oriented to person, Yes oriented to place and Yes oriented to time Urinary Catheter Management: Fletcher Latex: Cath Placed During This Visit: yes, but has since been removed by the nurse Reason for Continuing Indwelling Catheter: Other Urinary Catheter Date of Insertion: 02/27/25 Urinary Catheter Time of Insertion: 11:31 Date Urinary Catheter Removed: 02/27/25 Time Urinary Catheter Discontinued: 15:10 History History History 2 Term 2 0 Miscarriages/Ectopic 0 Living Children 2 Past Pregnancies Del. Date GA/Weeks Outcome Route Wt Inf Gender Labor Lgth Comp. Anesthesia Location 03/07/22 40 live - full term Vaginal 7 lb 8 oz Male [facility] 02/27/25 39 live - full term Vaginal 7 lb 15 oz Male Discharge Data Studies Completed and Pending Laboratory Results WBC 10.61 10^3/uL (3.29-11.43) 02/28/25 04:10 RBC 3.70 10^6/uL (3.85-5.65) L 02/28/25 04:10 Hgb 10.10 g/dL (11.27-16.99) L 02/28/25 04:10 Hct 31.1 % (36-47) L 02/28/25 04:10 MCV 84.1 fl (85-98) L 02/28/25 04:10 MCH 27.3 pg (27-33) 02/28/25 04:10 MCHC 32.5 g/dL (30-55) 02/28/25 04:10 RDW 13.5 % (12.1-15.1) 02/28/25 04:10 Plt Count 185 10^3/cmm (157-399) 02/28/25 04:10 MPV 11.5 fL (7.4-10.4) H 02/28/25 04:10 Neut % (Auto) 74.1 % 02/26/25 22:30 Lymph % (Auto) 18.6 % 02/26/25 22:30 [place] % (Auto) 6.2 % 02/26/25 22:30 Eos % (Auto) 0.5 % 02/26/25 22:30 Baso % (Auto) 0.2 % 02/26/25 22:30 Neut # (Auto) 7.09 10^3/uL (1.8-7.7) 02/26/25 22:30 Lymph # (Auto) 1.8 10^3/uL (0.8-4.8) 02/26/25 22:30 Mesa # (Auto) 0.6 10^3/uL (0.2-0.9) 02/26/25 22:30 Eos # (Auto) 0.1 10^3/uL (0.0-0.8) 02/26/25 22:30 Baso # (Auto) 0.0 10^3/uL (0.0-0.1) 02/26/25 22:30 Nucleated RBC % (auto) 0 % 02/26/25 22:30 Nucleated RBCs # 0.0 /100WBC 02/26/25 22:30 Blood Type A Positive 02/26/25 22:30 Rho(D) Type Rh positive 02/26/25 22:30 Antibody Screen Negative 02/26/25 22:30 Vitals Last Vital Signs Temp 98.0 F 02/28/25 05:32 Pulse 79 02/28/25 05:32 Resp 16 02/27/25 23:30 BP 99/60 02/28/25 05:32 Pulse Ox 100 02/27/25 23:30 O2 Del Method Room Air 02/26/25 23:46 Results Labs OB ([facility]): Obstetrics US 01/21/25 Blood Type A Positive 02/26/25 Antibody Screen Negative 02/26/25 Hct, (36-47) 31.1 % L Today Hgb, (11.27-16.99) 10.10 g/dL L Today Rho(D) Type Rh positive 02/26/25 Plt Count, (157-399) 185 10^3/cmm Today Hep Bs Antigen, (Nonreactive) Non-reactive 08/11/24 Hepatitis C Antibody, (Nonreactive) Non-reactive 08/11/24 Rubella IgG Antibody, (0.0-10.0) 62.0 IU/mL H 08/11/24 RPR, (Nonreactive) Nonreactive 08/11/24 HIV 1&2 Ab & HIV 1 Ag, (Non-Reactiv) Non-reactive 08/11/24 TSH, (0.27-4.20) 1.23 uIU/mL 08/11/24 Glucose 1 Hr 50 gm, (85-140) 129 mg/dL 12/10/24 Ser , Semi-Qnt 2622.00 mIU/mL 07/02/24 HCG, Qual, (Negative) Negative 08/13/23 Urine Opiates Screen, (Negative) Negative ng/mL 12/21/24 Ur Barbiturates Screen, (Negative) Negative ng/mL 12/21/24 Ur Phencyclidine Scrn, (Negative) Negative ng/mL 12/21/24 Ur Amphetamines Screen, (Negative) Negative ng/mL 12/21/24 U Benzodiazepines Scrn, (Negative) Negative ng/mL 12/21/24 Urine Cocaine Screen, (Negative) Negative ng/mL 12/21/24 U Marijuana (THC) Screen, (Negative) Negative ng/mL 12/21/24 Micro Urine Specimen 10/22/24 Discharge Plan Discharge Patient Disposition: Home Condition: Stable Prescriptions: Continued cholecalciferol (vitamin D3) 50 mcg (2,000 unit) capsule 50 mcg PO DAILY Qty: 30 12RF ferrous sulfate 325 mg (65 mg iron) Capsule, Extended Release 325 mg PO DAILY Discontinued [id number] [Fioricet] 50-300-40 mg capsule 1 cap PO Q8H PRN (Reason: pain) Qty: 30 0RF Discharge Order = DC NOW: Discharge Order (Routine); Ordered 02/28/25 Ordered By: Jose Ortega Referrals: Trinh Pike, LITHOGRAPHIC PRESS OPERATOR [Nurse Practitioner, COMBER TENDER] Discharge Diet: Regular Discharge Activity: Increase activity as tolerated Patient Instructions: Depression (DC), Opioid Safety (DC), Preeclampsia and Eclampsia After Delivery (GEN), Hemorrhage (DC), OB Discharge Report, OB Food/Drug Interaction Guide, Opioid Safety, OB Home Care, OB Vaginal Deliveries - [facility], Patient Portal & Sil Instructions, Abnormal Bleeding Activity Restrictions/Additional Instructions: Pelvic rest 6wks Assessment: Uncomplicated course Plan of Treatment: Outpatient follow-up visit 2 weeks Discharge Attestations COMBER TENDER Time Spent in Discharge Care*: less than 30 min Specific Discharge Activities: Specific discharge activities: educating patient, documenting/other paperwork and evaluating patient/reviewing data Coding Level of Care Code Acute Code for Chg Fwd Diagnoses Normal vaginal delivery O80 39 weeks gestation of Z3A.39 Weeks of gestation: 39 weeks Hx of penicillin allergy Z88.0
[2025-02-28 16:37] VITALS: BP 98/58; PULSE 70; RESP 16; TEMP 36.8; O2SAT 99
== END 2025-02-28 16:38 | disposition home or self-care (01) | DRG 807 ==
PROVIDERS: Admitting Provider Family Medicine; PCP Family Medicine; Visit Provider Obstetrics & Gynecology
DX: O99.824 Streptococcus B carrier state complicating childbirth (principal); Z37.0 Single live birth; O71.4 Obstetric high vaginal laceration alone; Z3A.39 39 weeks gestation of pregnancy; Z88.0 Allergy status to penicillin
CPT/HCPCS: 12345; 36415; 51702; 59025; 59409; 85025; 85027; 86850; 86900; 96374; 99211; J2405; J2590; J2795; J3490; J7120; J7121; J9999

== ENCOUNTER 2025-03-04 03:03 | Outpatient (CLI) | payer MEDICAID, SELFPAY ==
--- OUTSIDE RECORDS SUMMARY | 2021-10-17 09:27 | XMS_ITS | Continuity of Care Document ---
Author Organization [facility] Address [address] [place] [address] Phone Care Team Providers Care Supervisor Dairy Sanitation Name Role Phone Unavailable Unavailable Unavailable Allergies, Adverse Reactions, Alerts Substance Reaction Status Criticality amoxicillin Active No Information shrimp Active No Information kiwi Active No Information WARNIN allergy(ies) could not be collected because the type is not supported. Please contact the source practice for further details. Medications Medication Instructions Dosage Effective Dates (start - stop) Status Comments ZYRTEC (unknown strength) as needed Not Available - Active IBUPROFEN (unknown strength) Not Available - Active SERTRALINE HCL (unknown strength) Not Available - Active Procedures Procedure Date EVENT LOOPING/NON LOOPING, PER 30 DAYS, INTERP REPORT ELECTROCARDIOGRAM, COMPLETE ECHO, TT W/SPECTRAL AND COLOR DOPPLER Oc t EST PT, MODERATE VISIT ECG EVENT REC, 30 DAY ATTEND; RVW AND IN TERP ONLY INTERMEDIATE OUTPT CONSULT ECHO, TT W/SPECTRAL AND COLOR DOPPLER Ju COMPREHENSIVE OUTPT CONSULT MEASURE BLOOD OXYGEN LEVEL ELECTROCARDIOGRAM, COMPLETE ECG EVT REC, 30 DAY ATTND; TRANSMIT, RVW AND INTRP Advance Directives Directive Yes / No Effective Date File Name No Information Encounters Encounter Description Practice Location Reason(s) For Visit Diagnoses Date Provider Providers Copied on Encounter [facility], [address], [place], [address], [place] tel:[phone] [facility] [place] No Information Oct- 2 No Information [facility], [address], [address], [place] tel:[phone] [facility] Syncope 1 No Information Referring Provider: MAINE ORDOÑEZ [address], [place], [address]. tel:[phone] EST PT, MODERATE VISIT [facility], [address], [address], [place] tel:[phone] [facility] Chest Pain - Chest Wall May- 1 No Information Referring Provider: MAINE ORDOÑEZ [address], [place], [address]. tel:[phone] [facility], [address], [address], [place] tel:[phone] [facility] Palpitations 0 No Information Referring Provider: YULIA CHAVIS [address], [place], [address]. tel:[phone] INTERMEDIATE OUTPT CONSULT [facility], [address], [address], [place] tel:[phone] [facility] Palpitations Syncope 0 No Information Referring Provider: MAURO COLINDRES A, [address] [place], [address]. tel:[phone] COMPREHENSIVE OUTPT CONSULT [facility], [address], [address], [place] tel:[phone] [place] Tachycardia, NonspecificS hortness of breath 5 No Information Referring Provider: MAINE ORDOÑEZ [address], [place], [address]. tel:[phone] [facility], [address] [place], [address], [place] tel:[phone] [place] No Information No Information Referring Provider: YULIA CHAVIS [address], [place], [address]. tel:[phone] Family History Family Member Type Diagnosis Age At Onset Problem (finding) No family history of Ar rhythmia Problem (finding) No family history of Cohen dden Problem (finding) No family hist ory of Diabetes Mellitus Problem (finding) No family hist ory of Cardiomyopathy - hypertrophic Problem (finding) No family hist ory of Premature CAD Paternal Grandfather Problem Hypertension Paternal Grandmother Problem (finding) Hypertension Problem (finding) No family hist ory of Congenital Heart Disease Mother Problem (finding) Cardiomyopathy Problem (finding) No family hist ory of Cardiomyopathy - dilated Payers Payer name Insurance type Covered constitution party ID Authoriza tion(s) [employer] [facility] [id number] Social History Type Description Quantity Date Captured Comments Sex Female Smoking Status No Information Chief Complaint And Reason For Visit No Information History Of Present Illness Encounter Date Complaint History Of Prese nt Illness No Information Instructions Date Instruction Additional Infor mation No Information Assessments Type Assessment Date No Information
--- OUTSIDE RECORDS SUMMARY | 2021-10-17 09:27 | XMS_ITS | Continuity of Care Document ---
Author Organization [facility] Arabella Bernardo Address [address] [place] [address] Phone Care Team Providers Care Stripper Latex Name Role Phone Unavailable Unavailable Unavailable Allergies, [...] Provider Providers Copied on Encounter [facility], [address], [place], [address], [place] tel:[phone] [facility] No Information Oct- 2 No Information [facility] [address], [address], [place] tel:[phone] [facility] Syncope 1 No Information Referring Provider: MAINE ORDOÑEZ [address], [place], [address]. tel:[phone] EST PT, MODERATE VISIT [facility], [address], [address], [place] tel:[phone] [facility] Chest Pain - Chest Wall May- 1 No Information Referring Provider: MAINE ORDOÑEZ [address], [place], [address]. tel:[phone] [facility], [address], [address], [place] tel:[phone] [facility] Palpitations 0 No Information Referring Provider: YULIA CHAVIS [address], [place], [address]. tel:[phone] INTERMEDIATE OUTPT CONSULT [facility], [address], [address], [place] tel:[phone] [facility] Palpitations Syncope 0 No Information Referring Provider: MAURO COLINDRES A, [address] [place], [address]. tel:[phone] COMPREHENSIVE OUTPT CONSULT [facility], [address], [address], [place] tel:[phone] [facility] Tachycardia, NonspecificS hortness of breath 5 No Information Referring Provider: MAINE ORDOÑEZ [address], [place], [address]. tel:[phone] [facility], [address] [place], [address], [place] tel:[phone] [facility] No Information No Information Referring Provider: YULIA CHAVIS [address], [place], [address]. tel:[phone] Family History Family Member Type Diagnosis Age [...] dilated Payers Payer name Insurance type Covered alliance party ID Authoriza tion(s) HEALTHY BLUE OF [facility] [id number] Social History Type Description Quantity Date Captured Comments Sex Female Smoking Status No Information Chief Complaint And Reason For Visit No Information History Of Present Illness Encounter Date Complaint History Of Prese nt Illness No Information Instructions Date Instruction Additional Infor mation No Information Assessments Type Assessment Date No Information
--- OUTSIDE RECORDS SUMMARY | 2021-10-17 09:27 | XMS_ITS | Continuity of Care Document ---
Author Organization [facility] Arabella Bernardo Address [address] [place] [address] Phone Care Team Providers Care Load Out Person Name Role Phone Unavailable Unavailable Unavailable Allergies, [...] Provider Providers Copied on Encounter [facility], [address], [place], [address], [place] tel:[phone] [facility] No Information Oct- 2 No Information [facility], [address], [address], [place] tel:[phone] [facility] Syncope 1 No Information Referring Provider: MAINE ORDOÑEZ [address], [place], [address]. tel:[phone] EST PT, MODERATE VISIT [facility], [address], [address], [place] tel:[phone] [facility] Chest Pain - Chest Wall May- 1 No Information Referring Provider: MAINE ORDOÑEZ [address], [place], [address]. tel:[phone] [facility], [address], [address], [place] tel:[phone] [facility] Palpitations 0 No Information Referring Provider: YULIA CHAVIS [address], [place], [address]. tel:[phone] INTERMEDIATE OUTPT CONSULT [facility], [address], [address], [place] tel:[phone] [facility] Palpitations Syncope 0 No Information Referring Provider: MAURO COLINDRES A, [address] [place], [address]. tel:[phone] COMPREHENSIVE OUTPT CONSULT [facility], [address], [address], [place] tel:[phone] [facility] Tachycardia, NonspecificS hortness of breath 5 No Information Referring Provider: MAINE ORDOÑEZ [address], [place], [address]. tel:[phone] [facility], [address] [place], [address], [place] tel:[phone] [facility] No Information No Information Referring Provider: YULIA CHAVIS [address], [place], [address]. tel:[phone] Family History Family Member Type Diagnosis Age [...] democrat ID Authoriza tion(s) HEALTHY BLUE OF [facility] [id number] Social History Type Description Quantity Date Captured Comments Sex Female Smoking Status No Information Chief Complaint And Reason For Visit No Information History Of Present Illness Encounter Date Complaint History Of Prese nt Illness No Information Instructions Date Instruction Additional Infor mation No Information Assessments Type Assessment Date No Information
--- OUTSIDE RECORDS SUMMARY | 2021-10-17 09:27 | XMS_ITS | Continuity of Care Document ---
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 tel:[phone] EST PT, MODERATE VISIT [facility], [address], [address], [place] tel:[phone] [facility] Chest Pain - Chest Wall May- 1 No Information Referring Provider: MAINE ORDOÑEZ [address], [place], [address]. tel:[phone] [facility], [address], [address], [place] tel:[phone] [facility] Palpitations 0 No Information Referring Provider: YULIA CHAVIS [address], [place], [address]. tel:[phone] INTERMEDIATE OUTPT CONSULT [facility], [address], [address], [place] tel:[phone] [facility] Palpitations Syncope 0 No Information Referring Provider: MAURO COLINDRES A, [address] [place], [address]. tel:[phone] COMPREHENSIVE OUTPT CONSULT [facility], [address], [address], [place] tel:[phone] [facility] Tachycardia, NonspecificS hortness of breath 5 No Information Referring Provider: MAINE ORDOÑEZ [address], [place], [address]. tel:[phone] [facility], [address] [place], [address], [place] tel:[phone] [facility] No Information No Information Referring Provider: YULIA CHAVIS [address], [place], [address]. tel:[phone] Family History Family Member Type Diagnosis Age [...] party ID Authoriza tion(s) HEALTHY BLUE OF [facility] [id number] Social History Type Description Quantity Date Captured Comments Sex Female Smoking Status No Information Chief Complaint And Reason For Visit No Information History Of Present Illness Encounter Date Complaint History Of Prese nt Illness No Information Instructions Date Instruction Additional Infor mation No Information Assessments Type Assessment Date No Information
[2025-03-04] VITALS (8 sets, daily range): BP systolic 113–116; BP diastolic 62–76; PULSE 80–93; RESP 16–17; TEMP 36.6–36.8; O2SAT 98–100
--- OUTSIDE RECORDS SUMMARY | 2025-03-04 03:18 | XMS_ITS | Encounter Summary ---
Author Organization [facility] Address [address] [place] [address] Care Team Providers Care Online Content Coordinator Name Role Phone Eric Morillo MD Primary Care Provider [phone] [phone] Encounter Details Date Type Department Care Team (Latest Contact Info) Description 03/13/2005 Outpatient Historical [facility] [place] [address] [phone] Skyler Pappas NP NO ADDRESS ON FILE VIRAL EXANTHEMATA NOS (Primary Dx); ACUTE TONSILLITIS Social History Tobacco Use Types Packs/Day Years Used Date Smoking Tobacco: Never Assessed Comments Unknown Sex and Gender Information Value Date Recorded Sex Assigned at Not on file Legal Sex Female 3:33 AM MAMMAL CONTROL AGENT Gender Identity Not on file Sexual Orientation Not on file documented as of this encounter Plan of Treatment Not on file documented as of this encounter Visit Diagnoses Diagnosis Viral exanthem, unspecified- Primary Acute tonsillitis documented in this encounter Care Teams Online Content Coordinator Relationship Specialty Start Date End Date Eric Morillo MD [address] [phone] PCP - General Family Practice 09/04/18 documented as of this encounter
--- OUTSIDE RECORDS SUMMARY | 2025-03-04 03:18 | XMS_ITS | Encounter Summary ---
Author Organization [facility] Address [address] [place] [address] Care Team Providers Care Asphalt Patcher Name Role Phone Eric Morillo MD Primary Care Provider [phone] [phone] Encounter Details Date Type Department Care Team (Latest Contact Info) Description 01/03/2006 Outpatient Historical [facility] [address] [phone] Skyler Pappas NP NO ADDRESS ON FILE Unspecified Vaginitis and Vulvovaginitis (Primary Dx); Acute Sinusitis, Unspecified; Allergic Rhinitis, Cause Unspecified Social History Tobacco Use Types Packs/Day Years Used Date Smoking Tobacco: Never Assessed Comments Unknown Sex and Gender Information Value Date Recorded Sex Assigned at Not on file Legal Sex Female 3:33 AM PROPOSAL LEAD WRITER Gender Identity Not on file Sexual Orientation Not on file documented as of this encounter Plan of Treatment Not on file documented as of this encounter Visit Diagnoses Diagnosis Vaginitis and vulvovaginitis, unspecified- Primary Acute sinusitis, unspecified Allergic rhinitis, cause unspecified documented in this encounter Care Teams Asphalt Patcher Relationship Specialty Start Date End Date Eric Morillo MD [address] [phone] PCP - General Family Practice 09/04/18 documented as of this encounter
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
--- OUTSIDE RECORDS SUMMARY | 2025-03-04 03:18 | XMS_ITS | Clinical Summary ---
Author Organization [facility] Address [address] 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 04/11/2022 Anisometropia 05/29/2013 04/11/2022 Refractive [...] on file Legal Sex Female 1:48 PM DEADENER Gender Identity Not on file Sexual Orientation Not on file Last Filed Vital Signs Vital Sign Reading Time Taken Comments Blood Pressure 116/61 10/06/2024 8:20 PM DEADENER Pulse 72 10/06/2024 9:38 PM DEADENER Temperature 36.7 C (98.1 F) 10/06/2024 8:20 PM DEADENER Respiratory Rate 16 10/06/2024 8:20 PM DEADENER Oxygen Saturation 99% 10/06/2024 8:20 PM DEADENER Inhaled Oxygen Concentration - - Weight 66.9 kg (147 lb 6.4 oz) 10/06/2024 8:20 P M DEADENER Height 165.1 cm (5' 5 ) 06/04/2024 8:35 AM CDT Body Mass Index 24.53 06/04/2024 8:35 AM CDT Plan of Treatment Upcoming Encounters Date Type Department Care Team (Late st Contact Info) Description 06/04/2025 9:00 AM CDT Office Visit [address] [address] Eric Morillo MD [address] [address] Health Maintenance Due Date Last [...] DETECTED NOT DETECTED 01/17/2021 12:20 PM CDT [employer] [place] N.GONORRHOEAE RNA, TMA NOT DETECTED NOT DETECTED 01/17/2021 12:20 PM CDT [facility] [place] SEE NOTE 01/17/2021 12:20 PM CDT [facility] [place] Comment: The analytical performance characteristics of this assay, when used to test SurePath(TM) specimens have been determined by [employer]. The modifications have not been cleared or approved by the FDA. This assay has been validated pursuant to the CLIA regulations and is used for clinical purposes. For additional information, please refer to https://education.The 360 Mall/faq/MQE413 (This link is being provided for information/ educational purposes only.) Test Performed at: [facility] [address] [place] [address] Merrill Wong D.O., MPH 01/13/2021 2:58 PM CDT 01/15/2021 5:56 AM CDT Angi DUBOSEP BODY FLUIDS AND STOOLS COM Fi nal Result [facility] [place] [address] [place] [address] [facility] [address] [place] [address] from Last 3 Months or Most Recently Relevant to Health Maintenance Insurance [employer] Medicaid [facility] MEDICAID Advance Directives For more information, please contact: [phone] * Full Code (Latest Code Status on File) Date Activated Date Inactivated Comments 07/30/2021 11:23 PM 07/31/2021 6:17 PM Care Teams Brewer Helper Relationship Specialty Start Date End Date Eric Morillo MD [address] [phone] PCP - General Family Practice 09/04/18
--- OUTSIDE RECORDS SUMMARY | 2025-03-04 03:18 | XMS_ITS | Encounter Summary ---
Author Organization [facility] Address [address] [place] [address] Care Team Providers Care Associate Professor Of Biostatistics Name Role Phone Eric Morillo MD Primary Care Provider +1 -[phone] Encounter Details Date Type Department Care Team (Latest Contact Info) Description 07/03/2006 Outpatient Historical [facility] Medicine [address] [phone] Nga Peck MD NO ADDRESS ON FILE Acute Upper Respiratory Infections of Unspecified Site (Primary Dx); Other and Unspecified Noninfectious Gastroenteritis and Colitis Social History Tobacco Use Types Packs/Day Years Used Date Smoking Tobacco: Never Assessed Comments Unknown Sex and Gender Information Value Date Recorded Sex Assigned at Not on file 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 Gender Identity Not on file Sexual Orientation Not on file documented as of this encounter Plan of Treatment Not on file documented as of this encounter Visit Diagnoses Diagnosis Acute upper respiratory infections of unspecified site- Primary Other and unspecified noninfectious gastroenteritis and colitis(558.9) Other and unspecified noninfectious gastroenteritis and colitis documented in this encounter Care Teams Associate Professor Of Biostatistics Relationship Specialty Start Date End Date Eric Morillo MD [address] [phone] PCP - General Family Practice 09/04/18 documented as of this encounter
--- OUTSIDE RECORDS SUMMARY | 2025-03-04 03:18 | XMS_ITS | Encounter Summary ---
Author Organization [facility] Address [address] [place] [address] Care Team Providers Care Mixing Tank Operator Name Role Phone Eric Morillo MD Primary Care Provider +1 -[phone] Encounter Details Date Type Department Care Team (Latest Contact Info) Description 12/11/2004 Outpatient Historical [facility] Family Medicine- [address] [place] [address] Nga Peck MD NO ADDRESS ON FILE ACUTE URI NOS (Primary Dx); OTITIS MEDIA NOS Social History Tobacco Use Types Packs/Day Years Used Date Smoking Tobacco: Never Assessed Comments Unknown Sex and Gender Information Value Date Recorded Sex Assigned at Not on file 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
--- OUTSIDE RECORDS SUMMARY | 2025-03-04 03:18 | XMS_ITS | Encounter Summary ---
Author Organization [facility] Address [address] [facility] [place] [address] Care Team Providers Care Relationship Associate Name Role Phone Eric Morillo MD Primary Care Provider +1 [phone] Encounter Details Date Type Department Care Team (Latest Contact Info) Description 11/09/2005 Outpatient Historical [facility] Family Medicine- [address] [place] [address] Nga Peck MD NO ADDRESS ON FILE Candidiasis of Skin and Nails (Primary Dx) Social History Tobacco Use Types Packs/Day Years Used Date Smoking Tobacco: Never Assessed Comments Unknown Sex and Gender Information Value Date Recorded Sex Assigned at Not on file Legal Sex Female 3:33 AM RN OTOLARYNGOLOGY Gender Identity Not on file Sexual Orientation Not on file documented as of this encounter Plan of Treatment Not on file documented as of this encounter Visit Diagnoses Diagnosis Candidiasis of skin and nails- Primary documented in this encounter Care Teams Relationship Associate Relationship Specialty Start Date End Date Eric Morillo MD [address] [facility] [address] [place] [address] PCP - General Family Practice 09/04/18 documented as of this encounter
--- OUTSIDE RECORDS SUMMARY | 2025-03-04 03:18 | XMS_ITS | Encounter Summary ---
Author Organization [facility] Address [address] [place] [facility] [place] [address] Care Team Providers Care Machine Cell Tuber Name Role Phone Eric Morillo MD Primary Care Provider +1 [phone] Encounter Details Date Type Department Care Team (Latest Contact Info) Description 04/30/2005 Outpatient Historical [facility] Family Medicine- [address] [place] [address] Oswaldo Talamantes, NO ADDRESS ON FILE ACUTE PHARYNGITIS (Primary Dx) Social History Tobacco Use Types Packs/Day Years Used Date Smoking Tobacco: Never Assessed Comments Unknown Sex and Gender Information Value Date Recorded Sex Assigned at Not on file 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
--- OUTSIDE RECORDS SUMMARY | 2025-03-04 03:18 | XMS_ITS | Encounter Summary ---
Author Organization [facility] Address [address] [facility] [address] Care Team Providers Care District Court Administrator Name Role Phone Eric Morillo MD Primary Care Provider +1 -[phone] Encounter Details Date Type Department Care Team (Latest Contact Info) Description 12/26/2005 Outpatient Historical [facility] Family Medicine- [address] [place] [address] Oswaldo Talamantes, NO ADDRESS ON FILE Acute Upper Respiratory Infections of Unspecified Site (Primary Dx) Social History Tobacco Use Types Packs/Day Years Used Date Smoking Tobacco: Never Assessed Comments Unknown Sex and Gender Information Value Date Recorded Sex Assigned at Not on file 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
--- OUTSIDE RECORDS SUMMARY | 2025-03-04 03:18 | XMS_ITS | Encounter Summary ---
Author Organization [facility] Address [address] [place] [address] Care Team Providers Care Computer Game Tester Name Role Phone Eric Morillo MD Primary Care Provider +1 -[phone] Encounter Details Date Type Department Care Team (Latest Contact Info) Description 10/30/2005 Outpatient Historical [facility] Family Medicine [place] [address] [phone] Skyler Pappas NP NO ADDRESS ON FILE Contact Dermatitis and Other Eczema, due to Unspecified Cause (Primary Dx); Candidiasis of Unspecified Site Social History Tobacco Use Types Packs/Day Years Used Date Smoking Tobacco: Never Assessed Comments Unknown Sex and Gender Information Value Date Recorded Sex Assigned at Not on file Legal Sex Female 3:33 AM SHAREPOINT TRAINER Gender Identity Not on file Sexual Orientation Not on file documented as of this encounter Plan of Treatment Not on file documented as of this encounter Visit Diagnoses Diagnosis Contact dermatitis and other eczema, due to unspecified cause- Primary Candidiasis of unspecified site documented in this encounter Care Teams Computer Game Tester Relationship Specialty Start Date End Date Eric Morillo MD [address] [phone] PCP - General Family Practice 09/04/18 documented as of this encounter
--- OUTSIDE RECORDS SUMMARY | 2025-03-04 03:18 | XMS_ITS | Encounter Summary ---
Author Organization [facility] Address [address] [facility] [place] [address] Care Team Providers Care Fruit Packer Face And Fill Name Role Phone Eric Morillo MD Primary Care Provider +1 [phone] Encounter Details Date Type Department Care Team (Latest Contact Info) Description 11/23/2005 Outpatient Historical [facility] Family Medicine- [address] [place] [address] Skyler Pappas NP NO ADDRESS ON FILE Impetigo (Primary Dx) Social History Tobacco Use Types Packs/Day Years Used Date Smoking Tobacco: Never Assessed Comments Unknown Sex and Gender Information Value Date Recorded Sex Assigned at Not on file Legal Sex Female 3:33 AM CRIPPLE CUTTER Gender Identity Not on file Sexual Orientation Not on file documented as of this encounter Plan of Treatment Not on file documented as of this encounter Visit Diagnoses Diagnosis Impetigo- Primary documented in this encounter Care Teams Fruit Packer Face And Fill Relationship Specialty Start Date End Date Eric Morillo MD [address] [facility] [address] [place] [address] PCP - General Family Practice 09/04/18 documented as of this encounter
--- OUTSIDE RECORDS SUMMARY | 2025-03-04 03:20 | XMS_ITS | Encounter Summary ---
Author Organization [facility] Address [address] [place] [address] Care Team Providers Care Watch Train Inspector Name Role Phone Eric Morillo MD Primary Care Provider +1 -[phone] Encounter Details Date Type Department Care Team (Latest Contact Info) Description 08/08/2006 Outpatient [facility] Family Medicine [address] [phone] Skyler Pappas NP NO ADDRESS ON FILE Unspecified Otitis Media (Primary Dx); Acute Tonsillitis Social History Tobacco Use Types Packs/Day Years Used Date Smoking Tobacco: Never Assessed Comments Unknown Sex and Gender Information Value Date Recorded Sex Assigned at Not on file 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
--- OUTSIDE RECORDS SUMMARY | 2025-03-04 03:20 | XMS_ITS | Encounter Summary ---
Author Organization [facility] Address [address] [place] [address] Care Team Providers Care Dietitian Teaching Name Role Phone Eric Morillo MD Primary Care Provider +1 -[phone] Encounter Details Date Type Department Care Team (Latest Contact Info) Description 12/13/2006 Outpatient Historical [facility] Family Medicine [place] [address] [phone] Nga Peck MD NO ADDRESS ON FILE Acute Upper Respiratory Infections of Unspecified Site (Primary Dx); Acute Bronchitis Social History Tobacco Use Types Packs/Day Years Used Date Smoking Tobacco: Never Assessed Comments Unknown Sex and Gender Information Value Date Recorded Sex Assigned at Not on file Legal Sex Female 3:33 AM CONTACT LENS INSPECTOR Gender Identity Not on file Sexual Orientation Not on file documented as of this encounter Plan of Treatment Not on file documented as of this encounter Visit Diagnoses Diagnosis Acute upper respiratory infections of unspecified site- Primary Acute bronchitis documented in this encounter Care Teams Dietitian Teaching Relationship Specialty Start Date End Date Eric Morillo MD [address] [phone] PCP - General Family Practice 09/04/18 documented as of this encounter
--- OUTSIDE RECORDS SUMMARY | 2025-03-04 03:20 | XMS_ITS | Encounter Summary ---
Author Organization [facility] Address [address] [place] [address] Care Team Providers Care Fountain Worker Name Role Phone Eric Morillo MD Primary Care Provider +1 -[phone] Encounter Details Date Type Department Care Team [...] on file Legal Sex Female 1:48 PM VIDEO GAME ENGINEER Gender Identity Not on file Sexual Orientation Not on file documented as of this encounter Plan of Treatment Upcoming Encounters Date Type Department Care Team (Late st Contact Info) Description 06/04/2025 9:00 AM CDT Office Visit [facility] Medicine [place] [address] [address] Eric Morillo MD [address] [address] documented as of this encounter Visit Diagnoses Not on filedocumented in this encounter Care Teams Fountain Worker Relationship Specialty Start Date End Date Eric Morillo MD [address] [phone] PCP - General Family Practice 09/04/18 documented as of this encounter
--- OUTSIDE RECORDS SUMMARY | 2025-03-04 03:20 | XMS_ITS | Data Portability ---
Author Organization [facility] Katie Figueroa, [facility] Address [address] [place] [address] Assessment No assessment recorded. Plan of Treatment [...] Name and Address Organization Details Recorded Time 66508 kiwi fruit extract food Not available Not available Not available 08/06/2023 95707 01 RxNorm [facility] 3 17:39:25 22696 shrimp allergeni c extract food Not available Not available Not available 08/06/2023 44769 2 RxNorm [facility] 3 17:39:30 50632 amoxicill in medicatio n Not available Not available Not available 08/06/2023 723 RxNo [facility] 3 17:39:38 Vitals Date Recorded Body height Body mass index (BMI) Body mass index (BMI) [Percentile] Per age and sex Body weight Oxygen saturation Oxygen saturation in Arterial blood by Pulse oximetry Heart rate Body temperature Provider Name and Address Organization Details Last Updated DateTime 3 165.1 cm 20.4 kg/m2 33 % 94826.7 1 g 96 % 96 % 95 /min 97.1 [degF] Kimberlyn Akers [facility] L[facility]CJuan 3 17:39:19 Social History None recorded. Functional Status None recorded. Mental Status None recorded. Family History Nothing Reported. Medical History No medical history recorded. Gynecological HistoryNo gynecological history recorded. Obstetrics History GPAL:G 0 P 0 0 0 0 Past Encounters Encounter ID Performer Location Encounter Start Date Encounter Closed Date Diagnosis/Indication Diagnosis SNOMED-CT Code Diagnosis ICD10 Code Diagnosis Note [id number] SIL PARRA [facility] ([facility]) [address] [place] [address] 08/06/2023 16:59:38 08/06/2023 17:46:05 Right lower quadrant pain 778074909 R10.31 She will go to the ER [...] [place] (MEDICAID REPLACEMENT - HMO) [id number] [facility] [id number] [address] [facility] Notes Date Note Type Note Provider Name and Address Organization Details Recorded Time 08/06/2023 text/html Abdominal PainRe ported by PatientAbdominal PainFor quality, patient reportssharp,stabbing, andtender. For severity, patient reportsworsebut reportsmildandmoderate. For associated symptoms, patient reportsnausea,vomiting, diarrhea,decreased appetite,fatigue, andmenstrual symptomsbut reportsno fever. For location, patient reportsrlqandflank right. For duration, patient reportsconstant. For onset/timing, patient reportsstarted: (yesterday evening)andsudden. For aggravating factors, patient reportsmovementandeatin g and drinking. For alleviating factors, patient reportslaying down. For other, patient reportssexually activeanddoes not use control.ROS as noted in the HPI SIL PARRA [address] [place], [address], [facility] 08/06/2023 17:45:44 OBGyn Episode No OBEpisode recorded.
--- OUTSIDE RECORDS SUMMARY | 2025-03-04 03:20 | XMS_ITS | Encounter Summary ---
Author Organization [facility] Address [address] [place] [address] Care Team Providers Care Manager Port Name Role Phone Eric Morillo MD Primary Care Provider +1 -[phone] Encounter Details Date Type Department Care Team (Latest Contact Info) Description 04/22/2007 Outpatient Historical [facility] Family Medicine [place] [address] [phone] Meghan Meade, MIMEOGRAPHER [address] [place] [address] Acute Pharyngitis (Primary Dx) Social History Tobacco Use Types Packs/Day Years Used Date Smoking Tobacco: Never Assessed Comments Unknown Sex and Gender Information Value Date Recorded Sex Assigned at Not on file 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
--- OUTSIDE RECORDS SUMMARY | 2025-03-04 03:20 | XMS_ITS | Encounter Summary ---
Author Organization [facility] Address [address] [place] [address] Care Team Providers Care Hospital Tray Service Worker Name Role Phone Eric Morillo MD Primary Care Provider +1 -[phone] Encounter Details Date Type Department Care Team (Latest Contact Info) Description 04/30/2007 Outpatient Historical [facility] Family Medicine [place] [address] [phone] Meghan Meade, OXYGEN EQUIPMENT AIDE [address] [place] [address] Hypertrophy Tonsils (Primary Dx) Social History Tobacco Use Types Packs/Day Years Used Date Smoking Tobacco: Never Assessed Comments Unknown Sex and Gender Information Value Date Recorded Sex Assigned at Not on file 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
--- OUTSIDE RECORDS SUMMARY | 2025-03-04 03:20 | XMS_ITS | Encounter Summary ---
Author Organization [facility] Address [address] [place] [address] Care Team Providers Care Land Acquisition Manager Name Role Phone Eric Morillo MD Primary Care Provider +1 [phone] Encounter Details Date Type Department Care Team (Latest Contact Info) Description 11/12/2006 Outpatient Historical [facility] Family Medicine [place] [address] [phone] Skyler Pappas NP NO ADDRESS ON FILE Carbuncle and Furuncle of Unspecified Site (Primary Dx); Contact Dermatitis and Other Eczema, due to Unspecified Cause Social History Tobacco Use Types Packs/Day Years Used Date Smoking Tobacco: Never Assessed Comments Unknown Sex and Gender Information Value Date Recorded Sex Assigned at Not on file 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
--- NOTE | 2025-03-04 05:10 | PM.OBGYHP ---
Providers/Chief Complaint Admitting Physician: Aubrey Ronquillo MD Primary AEROSPACE MANAGER: Aubrey Ronquillo MD Primary Care Provider: Eric Morillo Chief Complaint: endometritis HPI AEROSPACE MANAGER History of Present Illness Lorena House is a 19 year old female s/p February 27, 2025 was discharged to home on February 28, 2025 without any complications patient presented to the ER at [facility], [place], [place]., on the evening of March 03, 2025 c/o fever and abdominal pain diagnosed with endometritis transferred to here for further treatment Patient already received imipenem and gentamicin in the ER in [place] On arrival c/o mild abdominal pain no nausea, vomiting, perineal pain, leg pain, chest pain, or shortness of breath no further vaginal bleeding no vaginal discharge Medications/Allergies Home Medications ?Medication ?Instructions ?Recorded ?Confirmed ?Last Taken ?Type cholecalciferol (vitamin D3) 50 50 mcg PO DAILY #30 caps 10/21/24 03/04/25 Unknown Rx mcg (2,000 unit) capsule ferrous sulfate 325 mg (65 mg 325 mg PO DAILY 01/07/25 03/04/25 01/06/25 18:00 History iron) capsule,extended release Allergies Allergy/AdvReac Type Severity Reaction Status Date / Time Alpha-Gal Allergy ALGY-Anaphy Verified 03/04/25 07:36 (Yoxwzwgaq-Iqkrx-5,3-Gala laxis amoxicillin (From Augmentin) Allergy ALGY-Anaphy Verified 03/04/25 07:36 laxis Beef Containing Products Allergy ALGY-Anaphy Verified 03/04/25 07:36 laxis clavulanic acid (From Allergy ALGY-Anaphy Verified 03/04/25 07:36 Augmentin) laxis fentanyl Allergy ALGY-Difficulty Verified 03/04/25 07:36 Breathing kiwi Allergy ALGY-Difficulty Verified 03/04/25 07:36 Breathing metoclopramide (From Reglan) Allergy ALGY-Difficulty Verified 03/04/25 07:36 Breathing promethazine (From Phenergan) Allergy ADR-Halluci Verified 03/04/25 07:36 nating shrimp Allergy ALGY-Difficulty Verified 03/04/25 07:36 Breathing PFSH AEROSPACE MANAGER PFSH: Medical History (Updated 03/04/25 @ 12:09 by Aubrey Ronquillo MD) Hx of penicillin allergy Mastitis Normal COVID No pertinent past medical history neghx: htn,dm,thyroid,dvt/pe PCP: Dr. Ilia Joshi Surgical History Hx laparoscopic cholecystectomy (~2020) Hx of tonsillectomy (~2006) Family History Family/Other Breast cancer Maternal great grandmother--dx age unknown Colon cancer Paternal Great Uncle--dx age 60's Mother Heart disease Grandmother Heart disease Maternal Grandfather Hypertension Paternal Denies family history of Ovarian cancer Diabetes Hypercholesteremia Uterine cancer Thyroid disease Stroke Social History Smoking and tobacco/nicotine status: unknown if used tobacco/nicotine Other Female Reproductive History: Hx Age of Menarche: 11 History History History 2 Term 2 0 Miscarriages/Ectopic 0 Living Children 2 Past Pregnancies Del. Date GA/Weeks Outcome Route Wt Inf Gender Labor Lgth Comp. Anesthesia Location 03/07/22 40 live - full term Vaginal 7 lb 8 oz Male [facility] 02/27/25 39 live - full term Vaginal 7 lb 15 oz Male Care NATI Calculator Estimated Delivery Date Method Current WG Current Estimate 03/03/25 Ultrasound #1 40w 1d Expected Delivery Route/Plan Vaginal Specific Issues/Plans SUPERVISION OF NAUSEA AND VOMITING IN : taking zofran 4 mg as needed <del>CONSTIPATION:</del> <del>discussed</del> <del>using</del> <del>zofran</del> <del>only</del> <del>as</del> <del>needed</del> <del>to</del> <del>help</del> <del>reduce</del> <del>constipation,</del> <del>milk</del> <del>of</del> <del>mag</del> <del>and</del> <del>colace</del> <del>sent</del> <del>to</del> <del>pharmacy,</del> <del>discussed</del> <del>increasing</del> <del>fluid</del> <del>and</del> <del>fiber</del> <del>intake</del> <del>LEG</del> <del>CRAMPS:</del> <del>was</del> <del>seen</del> <del>in</del> <del>ED</del> <del>on</del> <del>08/08/24</del> <del>for</del> <del>severe</del> <del>leg</del> <del>cramp</del> <del>in</del> <del>right</del> <del>leg</del> <del>to</del> <del>rule</del> <del>out</del> <del>DVT,</del> <del>venous</del> <del>duplex</del> <del>was</del> <del>negative.</del> <del>doing</del> <del>much</del> <del>better</del> <del>now.</del> <del>Discussed</del> <del>fluid</del> <del>intake</del> <del>and</del> <del>use</del> <del>of</del> <del>magnesium</del> <del>or</del> <del>magnesium</del> <del>topicals</del> <del>for</del> <del>cramping.</del> KIDNEY STONES: ER visits x2 this for pain with kidney stones, has not passed any stones to date. Discussed pain management strategies. No stones seen on most recent renal ultrasound on 10/22/24 but mild hydronephrosis was seen on the right side. INSOMNIA: discussed sleep hygiene and safe sleep aides ACID REFLUX: discussed use of pepcid and tums Vitals/I&O/Wt Last Vital Signs Temp 98.2 F 03/04/25 03:13 Pulse 93 03/04/25 03:13 Resp 17 03/04/25 10:34 BP 116/76 03/04/25 03:13 Pulse Ox 100 03/04/25 03:13 O2 Del Method Room Air 03/04/25 03:13 03/03/25 03/04/25 03/04/25 22:59 06:59 14:59 Intake Total / 102 Balance / Weight last 48 hrs Weight 160 lb Physical Exam Narrative: Weight 160 lbs; 5?5? VS normal. Temp 98.2 General comfortable, awake, alert, appropriate Lungs clear Cor RRR Abd: soft, nondistended Mild lower quadrants tenderness No rebound Fundus firm Ext: normal Results Labs OB ([facility]): Obstetrics US 01/21/25 Blood Type A Positive 02/26/25 Antibody Screen Negative 02/26/25 Hct, (36-47) 31.1 % L 02/28/25 Hgb, (11.27-16.99) 10.10 g/dL L 02/28/25 Rho(D) Type Rh positive 02/26/25 Plt Count, (157-399) 185 10^3/cmm 02/28/25 Hep Bs Antigen, (Nonreactive) Non-reactive 08/11/24 Hepatitis C Antibody, (Nonreactive) Non-reactive 08/11/24 Rubella IgG Antibody, (0.0-10.0) 62.0 IU/mL H 08/11/24 RPR, (Nonreactive) Nonreactive 08/11/24 HIV 1&2 Ab & HIV 1 Ag, (Non-Reactiv) Non-reactive 08/11/24 TSH, (0.27-4.20) 1.23 uIU/mL 08/11/24 Glucose 1 Hr 50 gm, (85-140) 129 mg/dL 12/10/24 Ser , Semi-Qnt 2622.00 mIU/mL 07/02/24 HCG, Qual, (Negative) Negative 08/13/23 Urine Opiates Screen, (Negative) Negative ng/mL 12/21/24 Ur Barbiturates Screen, (Negative) Negative ng/mL 12/21/24 Ur Phencyclidine Scrn, (Negative) Negative ng/mL 12/21/24 Ur Amphetamines Screen, (Negative) Negative ng/mL 12/21/24 U Benzodiazepines Scrn, (Negative) Negative ng/mL 12/21/24 Urine Cocaine Screen, (Negative) Negative ng/mL 12/21/24 U Marijuana (THC) Screen, (Negative) Negative ng/mL 12/21/24 Micro Urine Specimen 10/22/24 A&P Assessment and plan 1. Vaginal delivery: s/p February 27, 2025 2. endometritis: plan continue Abx, gentamicin and clindamycin, until at least 24 hours afebrile PDMP PDMP Reviewed: Not Reviewed Attestations Medical Necessity Statement*: patient with endometritis, admitted for antibiotics therapy Coding Level of Care Code Acute Code for Chg Fwd Diagnoses Vaginal delivery O80 endometritis O86.12
[2025-03-04] MEDS: oxyCODONE-APAP 5-325 mg Tablet PO ×4 (05:42→23:01)
--- OUTSIDE RECORDS SUMMARY | 2025-03-04 06:35 | XMS_ITS | Encounter Summary ---
Author Organization [facility] Address [address] [facility] [place] [address] Care Team Providers Care Worm Grower Name Role Phone Eric Morillo MD Primary Care Provider [phone] [phone] Encounter Details Date Type Department Care Team (Latest Contact Info) Description 04/30/2005 Outpatient Historical [facility] Family Medicine- [place] [address] [place] [phone] Oswaldo Talamantes, NO ADDRESS ON FILE ACUTE PHARYNGITIS (Primary Dx) Social History Tobacco Use Types Packs/Day Years Used Date Smoking Tobacco: Never Assessed Comments Unknown Sex and Gender Information Value Date Recorded Sex Assigned at Not on file 

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
--- OUTSIDE RECORDS SUMMARY | 2025-03-04 06:35 | XMS_ITS | Encounter Summary ---
Author Organization [facility] Address 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 Gender Identity Not on file Sexual Orientation Not on file documented as of this encounter Plan of Treatment Upcoming Encounters Date Type Department Care Team (Late st Contact Info) Description 06/04/2025 9:00 AM CDT Office Visit [facility] Medicine [place] [address] [phone] Eric Morillo MD [address] [phone] documented as of this encounter Visit Diagnoses Not on filedocumented in this encounter Care Teams Cranberry Grower Relationship Specialty Start Date End Date Eric Morillo MD [address] [phone] PCP - General Family Practice 09/04/18 documented as of this encounter
--- OUTSIDE RECORDS SUMMARY | 2025-03-04 06:35 | XMS_ITS | Encounter Summary ---
Author Organization [facility] Address [address] [place] [address] Care Team Providers Care Reamer Hand Name Role Phone Eric Morillo MD Primary Care Provider +1 [phone] Encounter Details Date Type Department Care Team (Latest Contact Info) Description 01/03/2006 Outpatient Historical [facility] Medicine [address] [phone] Skyler Pappas NP NO ADDRESS ON FILE Unspecified Vaginitis and Vulvovaginitis (Primary Dx); Acute Sinusitis, Unspecified; Allergic Rhinitis, Cause Unspecified Social History Tobacco Use Types Packs/Day Years Used Date Smoking Tobacco: Never Assessed Comments Unknown Sex and Gender Information Value Date Recorded Sex Assigned at Not on file 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
--- OUTSIDE RECORDS SUMMARY | 2025-03-04 06:35 | XMS_ITS | Encounter Summary ---
Author Organization [facility] Address [address] [place] [address] Care Team Providers Care Soaking Tank Worker Name Role Phone Eric Morillo MD Primary Care Provider +1 [phone] Encounter Details Date Type Department Care Team (Latest Contact Info) Description 04/22/2007 Outpatient Historical [facility] Family Medicine [place] [address] [phone] Meghan Meade, MATERIALS ASSISTANT [address] [place] [address] Acute Pharyngitis (Primary Dx) Social History Tobacco Use Types Packs/Day Years Used Date Smoking Tobacco: Never Assessed Comments Unknown Sex and Gender Information Value Date Recorded Sex Assigned at Not on file 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
--- OUTSIDE RECORDS SUMMARY | 2025-03-04 06:35 | XMS_ITS | Encounter Summary ---
Author Organization [facility] Address [address] [place] [address] Care Team Providers Care Sanitary Inspector Name Role Phone Eric Morillo MD Primary Care Provider +1 [phone] Encounter Details Date Type Department Care Team (Latest Contact Info) Description 04/30/2007 Outpatient Historical [facility] Family Medicine [place] [address] [phone] Meghan Meade, GAS APPLIANCE MECHANIC [address] [place] [address] Hypertrophy Tonsils (Primary Dx) Social History Tobacco Use Types Packs/Day Years Used Date Smoking Tobacco: Never Assessed Comments Unknown Sex and Gender Information Value Date Recorded Sex Assigned at Not on file 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
--- OUTSIDE RECORDS SUMMARY | 2025-03-04 06:35 | XMS_ITS | Encounter Summary ---
Author Organization [facility] Address [address] [place] [address] Care Team Providers Care Account Planner Name Role Phone Eric Morillo MD Primary Care Provider +1 [phone] Encounter Details Date Type Department Care Team (Latest Contact Info) Description 12/11/2004 Outpatient Historical [facility] Family Medicine- [address] [place] [address] [place] [phone] Nga Peck MD NO ADDRESS ON FILE ACUTE URI NOS (Primary Dx); OTITIS MEDIA NOS Social History Tobacco Use Types Packs/Day Years Used Date Smoking Tobacco: Never Assessed Comments Unknown Sex and Gender Information Value Date Recorded Sex Assigned at Not on file Legal Sex Female 3:33 AM SURGICAL PATHOLOGIST Gender Identity Not on file Sexual Orientation Not on file documented as of this encounter Plan of Treatment Not on file documented as of this encounter Visit Diagnoses Diagnosis Acute upper respiratory infections of unspecified site- Primary Unspecified otitis media documented in this encounter Care Teams Account Planner Relationship Specialty Start Date End Date Eric Morillo MD [address] [facility] [address] [place] [phone] PCP - General Family Practice 09/04/18 documented as of this encounter
--- OUTSIDE RECORDS SUMMARY | 2025-03-04 06:35 | XMS_ITS | Encounter Summary ---
Author Organization [facility] Address [address] [facility] [place] [address] Care Team Providers Care Strike On Machine Operator Name Role Phone Eric Morillo MD Primary Care Provider +1 [phone] Encounter Details Date Type Department Care Team (Latest Contact Info) Description 11/09/2005 Outpatient Historical [facility] Family Medicine- [address] [place] [address] [place] [phone] Nga Peck MD NO ADDRESS ON FILE Candidiasis of Skin and Nails (Primary Dx) Social History Tobacco Use Types Packs/Day Years Used Date Smoking Tobacco: Never Assessed Comments Unknown Sex and Gender Information Value Date Recorded Sex Assigned at Not on file Legal Sex Female 3:33 AM ELECTION CLERK Gender Identity Not on file Sexual Orientation Not on file documented as of this encounter Plan of Treatment Not on file documented as of this encounter Visit Diagnoses Diagnosis Candidiasis of skin and nails- Primary documented in this encounter Care Teams Strike On Machine Operator Relationship Specialty Start Date End Date Eric Morillo MD [address] [facility] [address] [place] [address] PCP - General Family Practice 09/04/18 documented as of this encounter
--- OUTSIDE RECORDS SUMMARY | 2025-03-04 06:35 | XMS_ITS | Encounter Summary ---
Author Organization [facility] Address [address] [place] [address] Care Team Providers Care Competitive Intelligence Analyst Name Role Phone Eric Morillo MD Primary Care Provider +1 [phone] Encounter Details Date Type Department Care Team (Latest Contact Info) Description 11/12/2006 Outpatient Historical [facility] Family Medicine [place] [address] [phone] Skyler Pappas NP NO ADDRESS ON FILE Carbuncle and Furuncle of Unspecified Site (Primary Dx); Contact Dermatitis and Other Eczema, due to Unspecified Cause Social History Tobacco Use Types Packs/Day Years Used Date Smoking Tobacco: Never Assessed Comments Unknown Sex and Gender Information Value Date Recorded Sex Assigned at Not on file Legal Sex Female 3:33 AM TRANSITION RN Gender Identity Not on file Sexual Orientation Not on file documented as of this encounter Plan of Treatment Not on file documented as of this encounter Visit Diagnoses Diagnosis Carbuncle and furuncle of unspecified site- Primary Contact dermatitis and other eczema, due to unspecified cause documented in this encounter Care Teams Competitive Intelligence Analyst Relationship Specialty Start Date End Date Eric Morillo MD [address] [phone] PCP - General Family Practice 09/04/18 documented as of this encounter
--- OUTSIDE RECORDS SUMMARY | 2025-03-04 06:35 | XMS_ITS | Encounter Summary ---
Author Organization [facility] Address [address] [facility] [place] [address] Care Team Providers Care Central Supply Worker Name Role Phone Eric Morillo MD Primary Care Provider [phone] [phone] Encounter Details Date Type Department Care Team (Latest Contact Info) Description 12/26/2005 Outpatient Historical [facility] Family Medicine- [address] [place] [address] [place] [address] Oswaldo Talamantes, NO ADDRESS ON FILE Acute Upper Respiratory Infections of Unspecified Site (Primary Dx) Social History Tobacco Use Types Packs/Day Years Used Date Smoking Tobacco: Never Assessed Comments Unknown Sex and Gender Information Value Date Recorded Sex Assigned at Not on file 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
--- OUTSIDE RECORDS SUMMARY | 2025-03-04 06:35 | XMS_ITS | Encounter Summary ---
Author Organization [facility] Address [address] [place] [address] Care Team Providers Care Calender Supervisor Name Role Phone Eric Morillo MD Primary Care Provider +1 [phone] Encounter Details Date Type Department Care Team (Latest Contact Info) Description 07/03/2006 Outpatient Historical [facility] Medicine [address] [phone] Nga Peck MD NO ADDRESS ON FILE Acute Upper Respiratory Infections of Unspecified Site (Primary Dx); Other and Unspecified Noninfectious Gastroenteritis and Colitis Social History Tobacco Use Types Packs/Day Years Used Date Smoking Tobacco: Never Assessed Comments Unknown Sex and Gender Information Value Date Recorded Sex Assigned at Not on file 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 Female 3:33 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 Gender Identity Not on file Sexual Orientation Not on file documented as of this encounter Plan of Treatment Not on file documented as of this encounter Visit Diagnoses Diagnosis Acute upper respiratory infections of unspecified site- Primary Other and unspecified noninfectious gastroenteritis and colitis(558.9) Other and unspecified noninfectious gastroenteritis and colitis documented in this encounter Care Teams Calender Supervisor Relationship Specialty Start Date End Date Eric Morillo MD [address] [phone] PCP - General Family Practice 09/04/18 documented as of this encounter
--- OUTSIDE RECORDS SUMMARY | 2025-03-04 06:35 | XMS_ITS | Encounter Summary ---
Author Organization [facility] Address [address] [place] [address] Care Team Providers Care Manager Psychiatry Name Role Phone Eric Morillo MD Primary Care Provider [phone] Encounter Details Date Type Department Care Team (Latest Contact Info) Description 10/30/2005 Outpatient Historical [facility] Family Medicine [place] [address] [phone] Skyler Pappas NP NO ADDRESS ON FILE Contact Dermatitis and Other Eczema, due to Unspecified Cause (Primary Dx); Candidiasis of Unspecified Site Social History Tobacco Use Types Packs/Day Years Used Date Smoking Tobacco: Never Assessed Comments Unknown Sex and Gender Information Value Date Recorded Sex Assigned at Not on file 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
--- OUTSIDE RECORDS SUMMARY | 2025-03-04 06:35 | XMS_ITS | Clinical Summary ---
Author Organization [facility] Address [address] [place] [address] Care Team Providers Care Integration Specialist Name Role Phone Eric Morillo MD Primary Care Provider [phone] Allergies Active Allergy Reactions Criticality Noted Date [...] on file Legal Sex Female 1:48 PM CRITICAL CARE NURSE PRACTITIONER Gender Identity Not on file Sexual Orientation Not on file Last Filed Vital Signs Vital Sign Reading Time Taken Comments Blood Pressure 116/61 10/06/2024 8:20 PM CRITICAL CARE NURSE PRACTITIONER Pulse 72 10/06/2024 9:38 PM CRITICAL CARE NURSE PRACTITIONER Temperature 36.7 C (98.1 F) 10/06/2024 8:20 PM CRITICAL CARE NURSE PRACTITIONER Respiratory Rate 16 10/06/2024 8:20 PM CRITICAL CARE NURSE PRACTITIONER Oxygen Saturation 99% 10/06/2024 8:20 PM CRITICAL CARE NURSE PRACTITIONER Inhaled Oxygen Concentration - - Weight 66.9 kg (147 lb 6.4 oz) 10/06/2024 8:20 P M CRITICAL CARE NURSE PRACTITIONER Height 165.1 cm (5' 5 ) 06/04/2024 8:35 AM CDT Body Mass Index 24.53 06/04/2024 8:35 AM CDT Plan of Treatment Upcoming Encounters Date Type Department Care Team (Late st Contact Info) Description 06/04/2025 9:00 AM CDT Office Visit [address] [phone] Eric Morillo MD [address] [phone] Health Maintenance Due Date Last [...] DETECTED NOT DETECTED 01/17/2021 12:20 PM CDT [facility] N.GONORRHOEAE RNA, TMA NOT DETECTED NOT DETECTED 01/17/2021 12:20 PM CDT [facility] SEE NOTE 01/17/2021 12:20 PM CDT [facility] Comment: The analytical performance characteristics of this assay, when used to test SurePath(TM) specimens have been determined by [email or web address]. The modifications have not been cleared or approved by the FDA. This assay has been validated pursuant to the CLIA regulations and is used for clinical purposes. For additional information, please refer to https://education.aisle411/faq/ATZ066 (This link is being provided for information/ educational purposes only.) Test Performed at: [email or web address] [address] [place] [address] Merrill Wong D.O., MPH 01/13/2021 2:58 PM CDT 01/15/2021 5:56 AM CDT Angi DUBOSEP BODY FLUIDS AND STOOLS COM Fi nal Result [facility] [address] [place] [address] [facility] [address] [place] [address] from Last 3 Months or Most Recently Relevant to Health Maintenance Insurance RX [employer] Medicaid HOME [facility] MEDICAID Advance Directives For more information, please contact: [phone] * Full Code (Latest Code Status on File) Date Activated Date Inactivated Comments 07/30/2021 11:23 PM 07/31/2021 6:17 PM Care Teams Integration Specialist Relationship Specialty Start Date End Date Eric Morillo MD [address] [phone] PCP - General Family Practice 09/04/18
--- OUTSIDE RECORDS SUMMARY | 2025-03-04 06:35 | XMS_ITS | Encounter Summary ---
Author Organization [facility] Address [address] [facility] [place] [address] Care Team Providers Care Kennel Staff Member Name Role Phone Eric Morillo MD Primary Care Provider [phone] Encounter Details Date Type Department Care Team (Latest Contact Info) Description 03/13/2005 Outpatient Historical [facility] Family Medicine [place] [address] [phone] Skyler Pappas NP NO ADDRESS ON FILE VIRAL EXANTHEMATA NOS (Primary Dx); ACUTE TONSILLITIS Social History Tobacco Use Types Packs/Day Years Used Date Smoking Tobacco: Never Assessed Comments Unknown Sex and Gender Information Value Date Recorded Sex Assigned at Not on file Legal Sex Female 3:33 AM RECEPTIONIST NURSE Gender Identity Not on file Sexual Orientation Not on file documented as of this encounter Plan of Treatment Not on file documented as of this encounter Visit Diagnoses Diagnosis Viral exanthem, unspecified- Primary Acute tonsillitis documented in this encounter Care Teams Kennel Staff Member Relationship Specialty Start Date End Date Eric Morillo MD [address] [phone] PCP - General Family Practice 09/04/18 documented as of this encounter
--- OUTSIDE RECORDS SUMMARY | 2025-03-04 06:35 | XMS_ITS | Encounter Summary ---
Author Organization [facility] Address [address] [place] [address] Care Team Providers Care Multi Disciplined Language Analyst Name Role Phone Eric Morillo MD Primary Care Provider [phone] [phone] Encounter Details Date Type Department Care Team (Latest Contact Info) Description 12/13/2006 Outpatient Historical [facility] Family Medicine [place] [address] [phone] Nga Peck MD NO ADDRESS ON FILE Acute Upper Respiratory Infections of Unspecified Site (Primary Dx); Acute Bronchitis Social History Tobacco Use Types Packs/Day Years Used Date Smoking Tobacco: Never Assessed Comments Unknown Sex and Gender Information Value Date Recorded Sex Assigned at Not on file 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
--- OUTSIDE RECORDS SUMMARY | 2025-03-04 06:35 | XMS_ITS | Encounter Summary ---
Author Organization [facility] Address [address] [place] [address] Care Team Providers Care Barback Name Role Phone Eric Morillo MD Primary Care Provider [phone] [phone] Encounter Details Date Type Department Care Team (Latest Contact Info) Description 08/08/2006 Outpatient [facility] Family Medicine [address] [phone] Skyler Pappas NP NO ADDRESS ON FILE Unspecified Otitis Media (Primary Dx); Acute Tonsillitis Social History Tobacco Use Types Packs/Day Years Used Date Smoking Tobacco: Never Assessed Comments Unknown Sex and Gender Information Value Date Recorded Sex Assigned at Not on file Legal Sex Female 3:33 AM 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
--- OUTSIDE RECORDS SUMMARY | 2025-03-04 06:35 | XMS_ITS | Encounter Summary ---
Author Organization [facility] Address [address] [place] [facility] [place] [address] Care Team Providers Care Senior Consumer Insights Consultant Name Role Phone Eric Morillo MD Primary Care Provider [phone] [phone] Encounter Details Date Type Department Care Team (Latest Contact Info) Description 11/23/2005 Outpatient Historical [facility] Family Medicine- [place] [address] [place] [phone] Skyler Pappas NP NO ADDRESS ON FILE Impetigo (Primary Dx) Social History Tobacco Use Types Packs/Day Years Used Date Smoking Tobacco: Never Assessed Comments Unknown Sex and Gender Information Value Date Recorded Sex Assigned at Not on file Legal Sex Female 3:33 AM SENIOR CLINICIAN Gender Identity Not on file Sexual Orientation Not on file documented as of this encounter Plan of Treatment Not on file documented as of this encounter Visit Diagnoses Diagnosis Impetigo- Primary documented in this encounter Care Teams Senior Consumer Insights Consultant Relationship Specialty Start Date End Date Eric Morillo MD [address] [facility] [address] [place] [phone] PCP - General Family Practice 09/04/18 documented as of this encounter
[2025-03-04] MEDS: GENTAMICIN IV ×2 (08:19→20:38)
[2025-03-04] MEDS: SODIUM CHLORIDE 0.9% IV ×2 (08:19→20:38)
--- NOTE | 2025-03-04 08:27 | PC.NURSE ---
this RN obtained report from [facility] ER nurse at 0113, this included recent vitals, lab work, medications given, PT history, and complaints.
--- NOTE | 2025-03-04 13:54 | PM.MISC ---
Miscellaneous Note Note: Called to assess possible PDPH. Patient states shortly after her discharge she began having a headache. At some point abdominal pain developed as well. She describes the headache as if her head will explode, extreme pressure. She says absolutely nothing has improved her symptoms. Not ibuprofen, not tylenol. Not percocet. The headache is not positional and is still present even after staying recumbent for hours in her attempts to sleep at night. She went to [facility] yesterday with a 103 fever, tachycardia, HTN, and abdominal pain and headache. The fever was brought down with tylenol. She doesn't particularly denote a stiff neck. With regards to PDPH, there is no positional element to this headache so does not present as PDPH, except in its intensity and timing. However, 3 attempts were required for epidural placement. Though no wet tap was witnessed it could be possible there is PDPH. However, given the other possibilities, Preeclampsia, HTN, meningitis, etc. I suggest a full work-up with labs, controlling her BP, and potentially even neuroimaging first in case of meningitis. If she is infected, a blood patch presents a higher risk for epidural abscess formation. We will continue to follow patient in hospital, in case blood patch should be recommended as a potential treatment after more thorough investigation and other treatment measures are attempted first. Addendum: CT imaging of head was performed at [facility] and no abnormalities detected.
[2025-03-05 03:01] VITALS: RESP 16
[2025-03-05] MEDS: oxyCODONE-APAP 5-325 mg Tablet PO (03:01)
[2025-03-05] MEDS: GENTAMICIN IV (08:42)
[2025-03-05] MEDS: SODIUM CHLORIDE 0.9% IV (08:42)
[2025-03-05 11:34] VITALS: BP 121/68; PULSE 61; RESP 16; TEMP 36.9; O2SAT 98
[2025-03-05 11:36] VITALS: BP 121/68; PULSE 61; RESP 16; TEMP 36.9; O2SAT 98
--- NOTE | 2025-03-05 12:36 | P.PN_ITS ---
BOILER SHOP SUPERVISOR Subjective Subjective: Interval history: Feeling much better No further headache No abdominal pain Eating well Vitals/I&O/Wt Last Vital Signs Temp 98.4 F 03/05/25 11:36 Pulse 61 03/05/25 11:36 Resp 16 03/05/25 11:36 BP 121/68 03/05/25 11:36 Pulse Ox 98 03/05/25 11:36 O2 Del Method Room Air 03/05/25 11:34 03/04/25 03/05/25 03/05/25 22:59 06:59 14:59 Intake Total 152 / 885.25 Balance 152 / 885.25 Weight last 48 hrs Weight 160 lb Physical Exam Narrative: VS afebrile x more than 24 hours Stable General comfortable, awake, alert Lungs: clear Cor: RRR Abd: soft, nontender Ext: normal A&P Assessment and plan 1. Vaginal delivery: s/p February 27, 2025 2. endometritis: resolved with Abx plan discharge to home today call / return if fever, chills, abdominal pain, vaginal bleeding, vaginal discharge RTO one week PDMP PDMP Reviewed: Last Reviewed 03/05/25 13:17 EDT by Aubrey Ronquillo MD Attestations Medical Necessity Statement*: patient with endometritis, resolved. plan to discharge to home today. Coding Level of Care Code Acute Code for Chg Fwd Diagnoses Vaginal delivery O80 endometritis O86.12
--- NOTE | 2025-03-05 12:39 | PM.OBGYDC ---
Discharge Providers INCUBATOR TENDER Date of Admission: March 04, 2025 Date of Discharge: 03/05/25 Attending Provider at Admission: Aubrey Ronquillo MD Attending Provider at Discharge: Aubrey Ronquillo MD Consults: none Primary INCUBATOR TENDER: Aubrey Ronquillo MD Primary Care Provider: Eric Morillo Diagnoses at Discharge Discharge Diagnosis 1. Vaginal delivery: Details from hospital stay: 19 y.o. s/p February 27, 2025 was discharged to home on February 28, 2025 without any complications patient presented to the ER at [place], [place] on the evening of March 03, 2025 c/o fever and abdominal pain diagnosed with endometritis transferred to here for further treatment patient was continued on antibiotics On March 05, 2025, patient had been afebrile for more than 24 hours She had no abdominal pain or vaginal bleeding / discharge Patient was discharged to home Plan is to follow up in one week Instructions given to call / return if fever, chills, abdominal pain, vaginal bleeding, vaginal discharge 2. endometritis: Details from hospital stay: s/p February 27, 2025 was discharged to home on February 28, 2025 without any complications patient presented to the ER at [place], [place] on the evening of March 03, 2025 c/o fever and abdominal pain diagnosed with endometritis transferred to here for further treatment patient was continued on antibiotics On March 05, 2025, patient had been afebrile for more than 24 hours She had no abdominal pain or vaginal bleeding / discharge Patient was discharged to home Plan is to follow up in one week Instructions given to call / return if fever, chills, abdominal pain, vaginal bleeding, vaginal discharge Reason for Visit Reason for Visit: endometritis Brief History: 19 y.o. s/p February 27, 2025 was discharged to home on February 28, 2025 without any complications patient presented to the ER at [facility], on the evening of March 03, 2025 c/o fever and abdominal pain diagnosed with endometritis transferred to here for further treatment Hospital Course Hospital Course patient was continued on antibiotics On March 05, 2025, patient had been afebrile for more than 24 hours She had no abdominal pain or vaginal bleeding / discharge Patient was discharged to home Plan is to follow up in one week Instructions given to call / return if fever, chills, abdominal pain, vaginal bleeding, vaginal discharge Information Peripartum Data: complications: pelvic infection Physical Exam Narrative: VS afebrile x more than 24 hours Stable General comfortable, awake, alert Lungs: clear Cor: RRR Abd: soft, nontender Ext: normal History History History 2 Term 2 0 Miscarriages/Ectopic 0 Living Children 2 Past Pregnancies Del. Date GA/Weeks Outcome Route Wt Inf Gender Labor Lgth Comp. Anesthesia Location 03/07/22 40 live - full term Vaginal 7 lb 8 oz Male [facility] 02/27/25 39 live - full term Vaginal 7 lb 15 oz Male Discharge Data Vitals Last Vital Signs Temp 98.4 F 03/05/25 11:36 Pulse 61 03/05/25 11:36 Resp 16 03/05/25 11:36 BP 121/68 03/05/25 11:36 Pulse Ox 98 03/05/25 11:36 O2 Del Method Room Air 03/05/25 11:34 Results Labs OB ([facility]): Obstetrics US 01/21/25 Blood Type A Positive 02/26/25 Antibody Screen Negative 02/26/25 Hct, (36-47) 31.1 % L 02/28/25 Hgb, (11.27-16.99) 10.10 g/dL L 02/28/25 Rho(D) Type Rh positive 02/26/25 Plt Count, (157-399) 185 10^3/cmm 02/28/25 Hep Bs Antigen, (Nonreactive) Non-reactive 08/11/24 Hepatitis C Antibody, (Nonreactive) Non-reactive 08/11/24 Rubella IgG Antibody, (0.0-10.0) 62.0 IU/mL H 08/11/24 RPR, (Nonreactive) Nonreactive 08/11/24 HIV 1&2 Ab & HIV 1 Ag, (Non-Reactiv) Non-reactive 08/11/24 TSH, (0.27-4.20) 1.23 uIU/mL 08/11/24 Glucose 1 Hr 50 gm, (85-140) 129 mg/dL 12/10/24 Ser , Semi-Qnt 2622.00 mIU/mL 07/02/24 HCG, Qual, (Negative) Negative 08/13/23 Urine Opiates Screen, (Negative) Negative ng/mL 12/21/24 Ur Barbiturates Screen, (Negative) Negative ng/mL 12/21/24 Ur Phencyclidine Scrn, (Negative) Negative ng/mL 12/21/24 Ur Amphetamines Screen, (Negative) Negative ng/mL 12/21/24 U Benzodiazepines Scrn, (Negative) Negative ng/mL 12/21/24 Urine Cocaine Screen, (Negative) Negative ng/mL 12/21/24 U Marijuana (THC) Screen, (Negative) Negative ng/mL 12/21/24 Micro Urine Specimen 10/22/24 Discharge Plan Discharge Patient Disposition: Home Prescriptions: New oxycodone-acetaminophen [Percocet] 5-325 mg tablet 1 tab PO Q8H PRN (Reason: pain) Qty: 20 0RF No Action cholecalciferol (vitamin D3) 50 mcg (2,000 unit) capsule 50 mcg PO DAILY Qty: 30 12RF ferrous sulfate 325 mg (65 mg iron) Capsule, Extended Release 325 mg PO DAILY Diet: Usual diet Activity: Increase activity as tolerated Activity Restrictions/Additional Instructions: Return to see me in one week Print Language: Romanian Discharge Attestations INCUBATOR TENDER Time Spent in Discharge Care*: less than 30 min Coding Level of Care Code Acute Code for Chg Fwd Diagnoses Vaginal delivery O80 endometritis O86.12
== END 2025-03-05 13:45 | disposition home or self-care (01) ==
LOC: OBGYN 05:17 → OPOB 07:23 → OBGYN 07:24
PROVIDERS: PCP Family Medicine; Visit Provider Obstetrics & Gynecology
DX: O26.899 Other specified pregnancy related conditions, unspecified trimester (principal); Z3A.00 Weeks of gestation of pregnancy not specified; R10.9 Unspecified abdominal pain
CPT/HCPCS: J1580; J3490; J7120; J9999